=== PATIENT | female | born 1975 | race Caucasian/White ===

== ENCOUNTER → 2017-11-09 07:44 | Outpatient (CLI) | payer BC, SELFPAY ==
--- NOTE | 2017-11-09 07:50 | US_ITS ---
STUDY: THYROID ULTRASOUND REASON FOR EXAM: Female, 42 years old. Dysphasia. TECHNIQUE: Ultrasound evaluation of the thyroid was performed with real-time and static holliday-scale imaging. COMPARISON: None. FINDINGS: RIGHT LOBE: The right lobe of the thyroid gland measures 4.6 x 1.5 x 1.1 cm. There is a homogeneous echotexture. There are no demonstrated solid, cystic or complex lesions. LEFT LOBE: The left lobe of the thyroid gland measures 4.3 x 1.2 x 1.2 cm. There is a homogeneous echotexture. There are no demonstrated solid, cystic or complex lesions. ISTHMUS: The isthmus measures 1 mm which is normal . The regional lymph nodes are normal. US/Thyroid IMPRESSION: Mildly enlarged thyroid gland right lobe greater than left. No nodules or cysts identified. Electronically Signed: Cody Pereira MD at 3:55 EDT , Service support ,
--- NOTE | 2017-11-09 07:50 | US_ITS ---
STUDY: ULTRASOUND OF THE FEMALE PELVIS - COMPLETE REASON FOR EXAM: Female, 42 years old. Menorrhagia. LMP: 10/29/2017. TECHNIQUE: Transabdominal and transvaginal. TECHNICAL QUALITY: Adequate. COMPARISON: None. FINDINGS: The uterus is anteverted and is in a midline position. The uterus measures 8.8 x 5.3 x 4.5 cm. Normal uterine cervix. The endometrium measures 9 mm in thickness, and is fluid distended. There is no demonstrated endometrial mass. Uterine fibroid, posterior uterine body left parasagittal, measuring 1.5 x 1.3 x 1.1 cm. I.U.D. - The patient does not have an I.U.D. The right ovary is visualized. The right ovary measures 3.5 x 1.9 x 1.7 cm. There is no right ovarian cyst or ovarian mass. There is no visualized right adnexal mass or complex lesion. There is normal arterial and normal venous vascularity. The left ovary is visualized. The left ovary measures 2.8 x 1.6 x 1.3 cm. There is no left ovarian cyst or ovarian mass. There is no visualized left adnexal mass or complex lesion. There is normal arterial and normal venous vascularity. There is no fluid in the cul-de-sac. The pre void volume of the bladder was 322 ml. Polycystic ovary disease: No. US/Pelvic (Non ) IMPRESSION: Fluid within the endometrial canal. 5 cm uterine fibroid. Electronically Signed: Cody Pereira MD at 4:00 EDT , Service support ,
--- NOTE | 2017-11-09 08:11 | US_ITS ---
STUDY: ULTRASOUND OF THE FEMALE PELVIS - COMPLETE REASON FOR EXAM: Female, 42 years old. Menorrhagia. LMP: 10/29/2017. TECHNIQUE: Transabdominal and transvaginal. TECHNICAL QUALITY: Adequate. COMPARISON: None. FINDINGS: The uterus is anteverted and is in a midline position. The uterus measures 8.8 x 5.3 x 4.5 cm. Normal uterine cervix. The endometrium measures 9 mm in thickness, and is fluid distended. There is no demonstrated endometrial mass. Uterine fibroid, posterior uterine body left parasagittal, measuring 1.5 x 1.3 x 1.1 cm. I.U.D. - The patient does not have an I.U.D. The right ovary is visualized. The right ovary measures 3.5 x 1.9 x 1.7 cm. There is no right ovarian cyst or ovarian mass. There is no visualized right adnexal mass or complex lesion. There is normal arterial and normal venous vascularity. The left ovary is visualized. The left ovary measures 2.8 x 1.6 x 1.3 cm. There is no left ovarian cyst or ovarian mass. There is no visualized left adnexal mass or complex lesion. There is normal arterial and normal venous vascularity. There is no fluid in the cul-de-sac. The pre void volume of the bladder was 322 ml. Polycystic ovary disease: No. US/Transvaginal Non- IMPRESSION: Fluid within the endometrial canal. 5 cm uterine fibroid. Electronically Signed: Cody Pereira MD at 4:00 EDT , Service support ,
== END ==
PROVIDERS: Family Provider Internal Medicine; PCP Internal Medicine; Visit Provider Internal Medicine
DX: N92.0 Excessive and frequent menstruation with regular cycle (principal); R13.10 Dysphagia, unspecified
CPT/HCPCS: 76536; 76830; 76856; 93976

== ENCOUNTER → 2017-11-24 07:56 | Outpatient (CLI) | payer BC, SELFPAY ==
--- NOTE | 2017-11-24 07:57 | BI_ITS ---
MAMMOGRAPHY - BILATERAL SCREENING REASON FOR EXAM: Female, 42 years old. Routine annual screening examination. PERTINENT HISTORY: NO FAM HX NO SX TECHNIQUE: Digital bilateral breast rodrigo (3D mammographic acquisition) in the CC and MLO projections. 2-D mediolateral oblique (MLO) and craniocaudad (CC) views of both breasts were obtained. CAD: Full Field Digital Mammography with Computer Added Detection was performed. COMPARISON: Oct 26 2016 9:47am. Oct 24 2015 8:11am FINDINGS: Breast Composition: The breasts are heterogeneously dense, which may obscure small masses. There are no dominant masses or suspicious calcifications. No other significant abnormalities are identified. BI/SCREENING MAMM (CAD), BILAT IMPRESSION: Stable bilateral screening mammogram. Yearly follow-up mammogram recommended. (A) ASSESSMENT CATEGORY: BIRADS Category 2: Benign. A letter regarding these results will be sent to the patient by the facility within 30 days. Approximately 10% of breast cancers are not detected by mammography. A normal mammogram should not delay biopsy of a clinically suspicious abnormality. [id number] Electronically Signed: Clyde Young MD at 15:58 EDT Tel , Service support ,
== END ==
PROVIDERS: Family Provider Internal Medicine; PCP Internal Medicine; Visit Provider Internal Medicine
DX: Z12.31 Encounter for screening mammogram for malignant neoplasm of breast (principal)
CPT/HCPCS: 77063; 77067

== ENCOUNTER 2018-06-01 12:05 | Day surgery (SDC) | payer BC, SELFPAY ==
[2018-06-01] VITALS (7 sets, daily range): BP systolic 95–123; BP diastolic 65–87; PULSE 62–91; RESP 16; TEMP 36.1–37.8; O2SAT 100; BMI 20.3
--- NOTE | 2018-06-01 | EMB_PTH ---
PATIENT: IMANI VEGA [place] [facility] [id number] AGE/SX: 43/F ROOM: RE06/01/[address]: Dr. Tracy Sylvester MD : 1975 BED: DIS: 06/01/2018 SPEC #: [id number] RECD: 06/01/18 15:44 STATUS: GIGI KHOA #: [id number] OSWALDO: 06/01/18 00:[address]: Tracy Sylvester DEPT: SURGICAL PATHOLOGY RECD BY: Flash Barboza ENTERED: 06/02/18 08:37 SP TYPE: ENDOM BX/C TOM DR: Dr. Yanet Mirza, DO Tissues: Endometrium, NOS Procedures: Surgery Specimen Level IV HEADER OPERATION: Hysteroscopy, D & C, Nirmala PRE-OP DIAGNOSIS: Menorrhagia TISSUE SUBMITTED: Endometrial curettings MICROSCOPIC DIAGNOSIS Endometrial curettings: Secretory endometrium. SJ:luis e 06/03/18 MICROSCOPIC DESCRIPTION Slides are reviewed. GROSS DESCRIPTION Received in fixative is one container labeled with the patient's name and designated endometrial curettings. The specimen consists of multiple fragments of hemorrhagic soft tissue mixed with mucoid tissue that in aggregate measure 3 x 2.5 x 0.3 cm. The specimen is totally submitted in one cassette. / SJ:rg 06/02/18 TC:4 CPT: 47865
[2018-06-01 12:30] LABS: Internal QC Validated? YES +Cl - CLEAR BKGD; Pregnancy, Urine Negative Negative
--- NOTE | 2018-06-01 13:48 | PCM.DC.D&C ---
Discharge Diet: No Restrictions Discharge Activity: May not drive while taking narcotic pain medications., May Shower, May Take a Tub Bath Return to work on:: 06/03/18 May resume sexual activity in: No Restrictions - when comfortable Weight Bearing Status: Weight bearing as tolerated Call your doctor if you observe: Fever of 101 or Higher, Inability to have a bowel movement, Using more than one pad per hour, Uncontrolled pain Additional Instructions: You make take three (200 mg each) Ibuprofen or two Aleve every 8 hrs as needed for milder pain. Add Tylenol 500 mg tablets 1-2 every 6 hrs . Take OxyIR for more severe pain. Allergies/Adverse Reactions: Allergies erythromycin base Adverse Reaction (Verified 05/24/18 09:40) Vomiting Medications to take at Discharge Multivitamin with Iron [Children's Vitamins with Iron] 1 each PO DAILY 05/24/18 Omeprazole [Prilosec] 20 mg PO DAILY 05/24/18 Oxycodone [Oxyir] 5 - 10 mg PO Q6H PRN PRN 2 Days #10 tablet 06/01/18 The following prescriptions were given: Oxycodone [Oxyir] 5 - 10 mg PO Q6H PRN PRN 2 Days #10 tablet PRN Reason: Mod-Severe Pain (4-10/10) Primary Care Physician: Yanet Mirza DO [Primary Care Provider] - Test Results: Test results from this visit will be discussed in further detail at your follow-up appointment, if applicable. Please Follow Up With: Tracy Sylvester MD - [phone] When: two weeks for postop check up Proposed Discharge Date: 06/01/18
--- NOTE | 2018-06-01 13:53 | DCINST_ITS ---
Discharge Diet: No Restrictions Discharge Activity: May not drive while taking narcotic pain medications., May Shower, May Take a Tub Bath Return to work on:: 06/03/18 May resume sexual activity in: No Restrictions - when comfortable Weight Bearing Status: Weight bearing as tolerated Call your doctor if you observe: Fever of 101 or Higher, Inability to have a bowel movement, Using more than one pad per hour, Uncontrolled pain Additional Instructions: You make take three (200 mg each) Ibuprofen or two Aleve every 8 hrs as needed for milder pain. Add Tylenol 500 mg tablets 1-2 every 6 hrs . Take OxyIR for more severe pain. Allergies/Adverse Reactions: Allergies erythromycin base Adverse Reaction (Verified 05/24/18 09:40) Vomiting Medications to take at Discharge Multivitamin with Iron [Children's Vitamins with Iron] 1 each PO DAILY 05/24/18 Omeprazole [Prilosec] 20 mg PO DAILY 05/24/18 Oxycodone [Oxyir] 5 - 10 mg PO Q6H PRN PRN 2 Days #10 tablet 06/01/18 The following prescriptions were given: Oxycodone [Oxyir] 5 - 10 mg PO Q6H PRN PRN 2 Days #10 tablet PRN Reason: Mod-Severe Pain (4-10/10) Primary Care Physician: Yanet Mirza DO [Primary Care Provider] - Test Results: Test results from this visit will be discussed in further detail at your follow- up appointment, if applicable. Please Follow Up With: Tracy Sylvester MD - [phone] When: two weeks for postop check up Proposed Discharge Date: 06/01/18
--- NOTE | 2018-06-01 15:00 | PCM.OP.BLANK ---
Problem List (1) Menorrhagia Status: Acute Operative Report Date of Procedure: 06/01/18 PROCEDURE: Hysteroscopy, Dilation and curettage, Nirmala endometrial ablation Preoperative Diagnosis: Excessive bleeding in premenopause, menorrhagia Postop diagnosis: Excessive bleeding in premenopause, menorrhagia Anesthesia: MAC IV sedation, Dr Roach Paracervical block of 10cc 1% lidocaine with 1:100,000 epinephrine Surgeon: Tracy Sylvester MD EBL: Minimal for case Drains: Red Rivera, minimal clear yellow urine Complications: none Fluids: replacement Findings: normal appearing cervix Normal appearing , fluffy endometrium. Tubal ostia visualized bilaterally. Narrative account After the R,B,Alternatives of the procedure were reviewed with the patient and her mother, informed consent was obtained. The patient was taken to the operating room with an IV running and placed in dorsal supine position on the operating table. She was given MAC IV sedation . and repositioned to the dorsal lithotomy position and prepped and draped in the usual sterile fashion. A graves speculum was placed into the vagina and the cervix was brought into view. The cervix was parous appearing. A 10cc paracervical block of 1% lidocaine with 1:100,000 epinephrine was instilled. A single toothed tenaculum was applied to the anterior lip of the cervix. The cervix was then sequentially dilated to allow admission of the hysteroscope into the endometrial cavity. The hysteroscopy was performed with findings noted as above. Photos were taken. Both tubal ostia were noted and WNL, and a fluffy appearing endometrium was seen. A sharp curettage was performed and multiple small pieces of tissue were withdrawn and set aside for later pathology review. Upon completion of the D and C, the Nirmala endometrial ablation device was placed into the uterus to the fundus, the endometrial canal length was 6 cm. The balloon seal at the cervix was inflated and the CO2 test was passed. The Nirmala endometrial ablation cycle was then completed, and the device was withdrawn. Excellent hemostasis was noted. The single toothed tenaculum was removed from the cervix and a RayTec was used to remove any remaining tissue and blood from the upper vagina and cervix. The procedure was terminated. The speculum was removed. The patient was returned to dorsal supine position and awakened from IV sedation, and transferred to the recovery room bed in stable condition after tolerating the procedure well. Sponge, lap, needle and instrument counts were correct x two. Medications given intraoperatively included 10 cc of 1% lidocaine with 1:100,000 epinephrine, and Toradol 30 mg IV x one. For a complete listing of the medications given intraoperatively, please see the anesthesia record.
== END 2018-06-01 16:10 | disposition home or self-care (01) ==
LOC: SDC 12:09 → AC 06-02 09:24
PROVIDERS: Anesthesiology; Family Provider Internal Medicine; PCP Internal Medicine; Referring Provider Obstetrics & Gynecology; Visit Provider Obstetrics & Gynecology
PROC: 0U5B8ZZ Destruction of Endometrium, Via Natural or Artificial Opening Endoscopic (ICD-10-PCS; CPT 58558; principal; 2018-06-01 13:35)
DX: N92.4 Excessive bleeding in the premenopausal period (principal); D64.9 Anemia, unspecified; K21.9 Gastro-esophageal reflux disease without esophagitis; Z79.899 Other long term (current) drug therapy; Z87.891 Personal history of nicotine dependence
CPT/HCPCS: 58563; 81025; 88305; J7120

== ENCOUNTER → 2018-06-03 09:16 | Outpatient (CLI) | payer BC, SELFPAY ==
--- NOTE | 2018-06-03 09:20 | CT_ITS ---
STUDY: CT BRAIN WITHOUT CONTRAST REASON FOR EXAM: Female, 43 years old. Paresthesia of the right arm and right lower extremity. RADIATION DOSAGE (If Supplied By Facility): CTDIvol = ( 44.99 ) mGy, DLP = ( 745.49 ) mGycm TECHNIQUE: Transaxial CT imaging of the brain was performed without administration of intravenous contrast material. Individualized dose optimization techniques were used for this CT. COMPARISON: None. FINDINGS: Normal soft tissue structures. Normal calvarium. Normal size ventricles and extra-axial spaces for the patient's age. Normal white matter tracts of the cerebral hemispheres. Normal basal ganglia and thalami. Normal brainstem. Normal cerebellum. There is no intracranial hemorrhage. There are no findings of an acute ischemic infarction. Normal visualized paranasal sinuses. CT/Brain/Head without Contrast IMPRESSION: Normal unenhanced CT scan of the brain. Electronically Signed: Wilbur King MD at 9:52 EST Tel [phone], Service support ,
[2018-06-03 10:20] LABS: Absolute Lymphocyte Count 0.99 X10^3/ul (0.83-4.51); Absolute Neutrophil Count 3.5 X10^3/uL (2.0-7.7); Basophil# 0.01 X10^3/uL; Basophil% 0.2 % (0-1); Eosinophils% 1.9 % (0-5); Hematocrit 36.7 % (37-47); Hemoglobin 11.7 g/dl (12.0-15.0); Lymphocyte # 0.99 X10^3/ul (4.0); Lymphocyte % 18.9 % (19-41); Mean Corp Hgb Conc 31.9 g/gl (32-36); Mean Corpuscular Hgb 26.2 pg (27.0-32.0); Mean Corpuscular Volume 82.1 fL (81-99); Mean Platelet Vol. 11.4 fl (6.2-12.0); Monocyte# 0.69 X10^3/uL; Monocyte% 13.1 % (0-10); Neutrophil # 3.46 X10^3/uL (2.7-7.7); Neutrophil % 65.9 % (47-70); Platelet Count 192 K/mm3 (150-450); RBC Distribution Width CV 16.4 % (11.6-14.6); RBC Distribution Width SD 49.8 fl (35.1-43.9); Red Blood Count 4.47 M/mm3 (4.2-5.4); White Blood Count 5.3 K/mm3 (4.4-11.0)
[2018-06-03 10:29] LABS: POSITIVE COUNT NO; POSITIVE DIFFERENTIAL NO; POSITIVE MORPHOLOGY NO
[2018-06-03 10:59] LABS: Vitamin B12 623 pg/mL (211-911)
[2018-06-03 11:00] LABS: ALB/GLOB Ratio 1.1 RATIO (0.9-2.4); AST(SGOT) 19 U/L (15-37); Alanine Aminotransfer ALT/SGPT 16 U/L (13-56); Albumin, Serum 3.8 g/dL (3.2-5.0); Alkaline Phosphatase 47 U/L (45-117); Anion Gap 6 (5-15); BUN 11 mg/dL (7-18); BUN/Creat Ratio 13.3 RATIO (10-20); Calcium,Total 8.8 mg/dL (8.5-10.1); Chloride 106 mmol/L (98-107); Creatinine, Serum 0.83 mg/dL (0.55-1.02); EST Glomerular Filtration Rate 79 mL/min (>60); Est Glom Filt Rate - Afr Amer 96 mL/min (>60); Globulin 3.4 g/dL (2.2-4.2); Glucose 66 mg/dL (74-106); Potassium 4.3 mmol/L (3.5-5.1); Protein, Total 7.2 g/dL (6.4-8.2); Sodium Level 139 mmol/L (136-145); Thyroid Stim Hormone (TSH) 0.99 uIU/mL (0.358-3.74)
== END ==
PROVIDERS: Family Provider Internal Medicine; PCP Internal Medicine; Referring Provider Internal Medicine; Visit Provider Internal Medicine
DX: R20.2 Paresthesia of skin (principal)
CPT/HCPCS: 70450; 80053; 82607; 84443; 85025

== ENCOUNTER → 2018-06-24 15:05 | Outpatient (CLI) | payer BC, SELFPAY ==
--- NOTE | 2018-06-24 15:08 | ECHOD_ITS ---
Reason For Study: TIA Procedure This was a 2D Doppler, Color Flow transthoracic echocardiogram. The study was technically difficult. Exam performed in department. Left Ventricle Normal LV size. Apical false tendon noted. Left ventricular systolic function is normal. The estimated ejection fraction is 60 %. Transmitral doppler flow suggestive of impaired relaxation of left ventricle. No regional wall motion abnormalities noted. Right Ventricle Normal RV size. Normal systolic function. Atria Normal left atrium. Normal right atrium. No doppler evidence for ASD. Bubble contrast study negative for right to left interatrial shunt. Mitral Valve There is no mitral annular calcification. Normal mitral valve. Trivial mitral valve insufficiency. Tricuspid Valve Normal tricuspid valve. Trivial tricuspid valve insufficiency. Right ventricular systolic pressure estimated to be 27 mmHg. Aortic Valve Trisinus/trileaflet aortic valve. Normal aortic valve. Pulmonic Valve The pulmonic valve is not well visualized. Great Vessels Normal sized aortic root. Pericardium/Pleural No pericardial effusion. Medication 22 gauge I.V. with prn adaptor inserted into right arm. Performed a rapid injection of agitated mix of 9 cc saline and 1cc air to assess for atrial septal defect. MMode/2D Measurements & Calculations LVIDd: 3.9 cm IVSd: 0.66 cm Ao root diam: 2.8 cm LVIDs: 2.5 cm LVPWd: 0.72 cm RVDd: 2.9 cm FS: 34.2 % LAV(MOD-bp): 22.9 ml LA A4 area: 10.3 cm2 LA dimension(2D): 2.5 cm LAV(MOD-bp) Indexed: 15.8 ml/m2 LAV(MOD-sp2): 25.1 ml LAV(MOD-sp4): 19.3 ml RA A4 area: 9.5 cm2 Time Measurements MV dec time: 0.30 sec Doppler Measurements & Calculations MV E max angel: 86.0 cm/sec Lat Peak E' Angel: 15.0 cm/sec Med Peak E' Angel: 12.0 cm/sec MV A max angel: 99.9 cm/sec E/E' lat: 5.7 E/E' med: 7.1 MV E/A: 0.86 Ao V2 max: 123.9 cm/sec LV V1 max: 118.2 cm/sec PA V2 max: 92.0 cm/sec Ao max P.1 mmHg LV V1 max P.6 mmHg TR max angel: 242.2 cm/sec TR max P.8 mmHg Interpretation Summary The study was technically difficult. Left ventricular systolic function is normal. The estimated ejection fraction is 60 %. Apical false tendon noted. Trivial mitral valve insufficiency. Trivial tricuspid valve insufficiency. Right ventricular systolic pressure estimated to be 27 mmHg. Transmitral doppler flow suggestive of impaired relaxation of left ventricle Bubble contrast study negative for right to left interatrial shunt. Ordering Physician: Yanet Mirza Referring Physician: Yanet Mirza Performed By: Chana Phoenix, CARLOS, RVT
--- OUTSIDE RECORDS SUMMARY | 2018-08-19 14:22 | XMS RPT_ITS | Continuity of Care Document ---
:1975 Author Organization [facility] Address [address] [facility] [address] [address] Phone Care Team Providers Name Role Phone Yanet Mirza DO Unavailable Elva Lacey Unavailable Unavailable Una Herron Unavailable Unavailable Unavailable Unavailable Problems Name Dates Details Abdominal pain, acute, right upper quadrant (R10.11, 789.01) Status: Active Abnormal liver function (K76.89, 573.9) Status: Active Abnormal lung function test (R94.2, 794.2) Status: Active Abnormal mammogram (R92.8, 793.80) Comments: us scheduled Status: Active Anemia (D64.9, 285.9) Status: Active BMI between 19-24,adult (V85.1) Status: Active Cardiac dysrhythmia (I49.9, 427.9) Status: Active CHEST PAIN (R07.9, 786.59) Status: Active Chronic sinusitis (J32.9, 473.9) Status: Active Contact dermatitis due to plants, except food, unspecified contact dermatitis type (L25.5, 692.6) Status: Active Deliveries (Parity) Comments: 2. Status: Active Dysphagia (R13.10, 787.20) Comments: better Status: Active Elevated blood-pressure reading without diagnosis of hypertension (R03.0, 796.2) Comments: watch salt and caffeine and diet and ex Status: Active Encounter for screening mammogram for breast cancer (Renamed from Encounter for screening mammogram for malignant neoplasm of breast) (Z12.31, V76.12) Status: Active Encounter for screening mammogram for breast cancer (Renamed from Encounter for screening mammogram for malignant neoplasm of breast) (Z12.31, V76.12) Status: Active Encounter for screening mammogram for breast cancer (Renamed from Encounter for screening mammogram for malignant neoplasm of breast) (Z12.31, V76.12) Status: Active family hx of thyroid diseae Status: Active Gastroesophageal reflux disease without esophagitis (K21.9, 530.81) Comments: doing better after dilation Status: Active Lymphadenopathy (R59.1, 785.6) Status: Active [facility] EXAM Status: Active [facility] Physical Status: Active Menorrhagia (N92.0, 626.2) Comments: seeing Benekos in next few weeks Status: Active Need for prophylactic vaccination and inoculation against influenza (Renamed from Need for immunization against influenza) (Z23, V04.81) Status: Active Non-smoker (Z78.9, V49.89) Status: Active Other and unspecified hyperlipidemia (E78.5, 272.4) Status: Active Palpitations (R00.2, 785.1) Comments: chronic stable-continue present regimen Status: Active Paresthesia (R20.2, 782.0) Status: Active Pregnancies () Comments: 2. Status: Active Rash (R21, 782.1) Status: Active Screening for breast cancer (Z12.39, V76.10) Status: Active Sinusitis, acute (J01.90, 461.9) Status: Active TIA (transient ischemic attack) (G45.9, 435.9) Status: Active Urinary frequency (Renamed from Increased frequency of urination) (R35.0, 788.41) Status: Active Medications Name Dates Details MULTIVITAMIN (PO Tab) Active 1 tab qd Omeprazole 20 MG Oral Tablet Delayed Release 1 (one) Tablet bid for 0 days Quantity: 60 {Tablet} Refills: 6 Ordered:04-May-2018 Fast DOAngela AFast DO, Yanet A Start : 04-May-2018 Active Comments:please dispense dissolveable tablets AUGMENTIN, 875-125MG (Oral Tablet) 1 Tablet bid for 0 days Quantity: 20 {Tablet} Refills: 0 Ordered:07-Nov-2012 Gilma Laceysea Start : 11-Sep-2011 End : 07-Nov-2012 Inactive Hyoscyamine Sulfate 0.125 MG Sublingual Tablet Sublingual 1 (one) Tablet before lunch and before dinner for 0 days Quantity: 60 {Tablet} Refills: 1 Ordered:01-Nov-2017 Elva Lacey Start : 22-Feb-2017 End : 01-Nov-2017 Inactive NASONEX, 50MCG/ACT (Nasal Suspension) 2 (two) Suspension each nostril daily for 0 days Quantity: 1 {Suspension} Refills: 0 Ordered:07-Nov-2012 Cristophercristinapeggy Elva Start : 11-Sep-2011 End : 07-Nov-2012 Inactive NexIUM 24HR Clear Minis 20 MG Oral Capsule Delayed Release 1 (one) Capsule q am for 30 days Quantity: 30 {Capsule} Refills: 0 Ordered:01-Nov-2017 Gilma Laceysea Start : 22-Feb-2017 End : 01-Nov-2017 Inactive PredniSONE 10 MG Oral Tablet 2 (two) Tablet bid for 2days then 1bid for 2days then 1qd for 4days for 8 days Refills: 0 Ordered:14-Apr-2018 Karen Montes DO Start : 14-Apr-2018 End : 22-Apr-2018 Inactive Comments:take with food Amoxicillin uad End : 19-Aug-2016 Discontinued Comments:started on ...10 day supply ASPIRIN LOW DOSE, 81MG (Oral Tablet) 1 tab qd (81 MG) End : 16-Oct-2014 Discontinued Dexilant 60 MG Oral Capsule Delayed Release 1 (one) Capsule DR qd for 30 days Quantity: 30 {Capsule} Refills: 3 Ordered:22-Feb-2017 Una Herron Start : 15-Sep-2016 End : 22-Feb-2017 Discontinued Comments:she has tried prilosec nexium pantoprazole, prevacid and no benefit Qvar 80 MCG/ACT Inhalation Aerosol Solution 2 (two) Aerosol Soln puffs for 0 days Quantity: 1 {Inhaler} Refills: 0 Ordered:22-Feb-2017 Fast DO, Yanet AFast DO, Yanet A Start : 22-Feb-2017 End : 22-Feb-2017 Discontinued Comments:rinse after use Allergies and Adverse Reactions Name Dates Details Erythromycins (Allergy) Reaction: Nausea Status: Active Past Medical History Name Dates Details Need for prophylactic vaccination and inoculation against influenza (Z23, V04.81) Status: Inactive as of 12-Jun-2011 Procedures Procedure Dates Details Mammogram, Screening Completed Sep-2014 Comments: Dr. Yoo Tonsillectomy Completed Comments: childhood Date Value Details 03-Jun-2018 Brain/Head without Contrast Result: Comments: See Note; NOTES: [facility] Imaging Services [address] [place] [address] Brain/Head without Contrast MR#: [id number] Acct: [id number] Name: IMANI VEGA Vito ep #: [id number] : 1975 F 43 From: Wilbur King MD PCP: Yanet Mirza DO Status: REG CLI Study: Brain/Head without Contrast Date of Exam: 06/03/18 Exam# [id number] Ordering Dr: Yanet Mirza DO STUDY: CT BRAIN WITHOUT CONTRAST REASON FOR EXAM: Female, 43 years old. Paresthesia of the right arm and right lower extremity. RADIATION DOSAGE (If Supplied By Facility): CTDIvol = ( 44.99 ) mGy, D LP = ( 745.49 ) mGycm TECHNIQUE: Transaxial CT imaging of the brain was performed without administration of intravenous contrast material. Individualized dose optimization techniques were used for thi s CT. COMPARISON: None. FINDINGS: Normal soft tissue structures. Normal calvarium. Normal size ventricles and extra- axial spaces for the patient's age. Normal whit e matter tracts of the cerebral hemispheres. Normal basal ganglia and thalami. Normal brainstem. Normal cerebellum. There is no intracranial hemorrhage. There are no findings of an acute ischemic infar ction. Normal visualized paranasal sinuses. CT/Brain/Head without Contrast IMPRESSION: Normal unenhanced CT scan of the brain. Electronically S igned: Wilbur King MD at 9:52 EST Tel [phone], Service support , CC: Yanet Mirza DO Upper Doubler: Signed 01-Jun-2018 Operative Report Result: Comments: See Note; NOTES: [facility] Medical Records Department [address] [place] [address] Operative Report 06/01/18 1500 MR#: [id number] Acct: [id number] Name: JULIAN VEGA Rep #: [id number] : 1975 43 From: Tracy Yoo MD PCP: Yanet Mirza DO Status: REG [facility] Location: [place] [address] Problem List (1) Menorrhagia Status: Acute Operative Report Date of Proc edure: 06/01/18 PROCEDURE: Hysteroscopy, Dilation and curettage, Nirmala endometrial ablation Preoperative Diagnosis: Excessive bleeding in premenopause, menorrhagia Postop diagnosis: Excessive blee ding in premenopause, menorrhagia Anesthesia: MAC IV sedation, Dr Roach Paracervical block of 10cc 1% lidocaine with 1:100,000 epinephrine Surgeon: Tracy Yoo MD EBL: Minimal for case Drains : Red Rivera, minimal clear yellow urine Complications: none Fluids: replacement Findings: normal appearing cervix Normal appearing , fluffy endometrium. Tubal ostia visualized bilaterally. Narrat tawanda account After the R,B,Alternatives of the procedure were reviewed with the patient and her mother, informed consent was obtained. The patient was taken to the operating room with an IV running and p laced in dorsal supine position on the operating table. She was given MAC IV sedation . and repositioned to the dorsal lithotomy position and prepped and draped in the usual sterile fashion. A graves sp eculum was placed into the vagina and the cervix was brought into view. The cervix was parous appearing. A 10cc paracervical block of 1% lidocaine with 1:100,000 epinephrine was instilled. A single toot hed tenaculum was applied to the anterior lip of the cervix. The cervix was then sequentially dilated to allow admission of the hysteroscope into the endometrial cavity. The hysteroscopy was performed w ith findings noted as above. Photos were taken. Both tubal ostia were noted and WNL, and a fluffy appearing endometrium was seen. A sharp curettage was performed and multiple small pieces of tissue were withdrawn and set aside for later pathology review. Upon completion of the D and C, the Nirmala endometrial ablation device was placed into the uterus to the fundus, the endometrial canal length was 6 cm. The balloon seal at the cervix was inflated and the CO2 test was passed. The Nirmala endometrial ablation cycle was then completed, and the device was withdrawn. Excellent hemostasis was noted. The single toothed tenaculum was removed from the cervix and a RayTec was used to remove any remaining tissue and blood from the upper vagina and cervix. The procedure was terminated. The speculum was stephanie haylie. The patient was returned to dorsal supine position and awakened from IV sedation, and transferred to the recovery room bed in stable condition after tolerating the procedure well. Sponge, lap, nee dle and instrument counts were correct x two. Medications given intraoperatively included 10 cc of 1% lidocaine with 1:100,000 epinephrine, and Toradol 30 mg IV x one. For a complete listing of the medi cations given intraoperatively, please see the anesthesia record. 06/01/18 1505 <Electronically signed by Tracy Yoo MD> Date Tracy Yoo MD CC: Yanet Mirza DO; Tracy Yoo MD Signed 01-Jun-2018 Discharge Instruction Result: Comments: See Note; NOTES: [facility] Medical Records Department [address] [place] [address] Instructions for Home/Discharge Instructions 06/01/18 1348 MR#: [id number] Acct: [id number] Name: IMANI VEGA Rep #: [id number] : 1975 43 From: Tracy Yoo MD PCP: Yanet Mirza DO Status: REG [facility] Discharge Diet: No Restrictions Discharge Activity: May not drive wh ile taking narcotic pain medications., May Shower, May Take a Tub Bath Return to work on:: 06/03/18 May resume sexual activity in: No Restrictions - when comfortable Weight Bearing Status: Weight bearin g as tolerated Call your doctor if you observe: Fever of 101 or Higher, Inability to have a bowel movement, Using more than one pad per hour, Uncontrolled pain Additional Instructions: You make take th ree (200 mg each) Ibuprofen or two Aleve every 8 hrs as needed for milder pain. Add Tylenol 500 mg tablets 1-2 every 6 hrs . Take OxyIR for more severe pain. Allergies/Adverse Reactions: Allergies eryt hromycin base Adverse Reaction (Verified 05/24/18 09:40) Vomiting Medications to take at Discharge Multivitamin with Iron [Children's Vitamins with Iron] 1 each PO DAILY 05/24/18 Omeprazole [Prilosec ] 20 mg PO DAILY 05/24/18 Oxycodone [Oxyir] 5 - 10 mg PO Q6H PRN PRN 2 Days #10 tablet 06/01/18 The following prescriptions were given: Oxycodone [Oxyir] 5 - 10 mg PO Q6H PRN PRN 2 Days #10 tablet PRN Reason: Mod-Severe Pain (4-05/04) Primary Care Physician: Yanet Mirza DO [Primary Care Provider] - Test Results: Test results from this visit will be discussed in further detail at your follow-up appoi ntment, if applicable. Please Follow Up With: Tracy Yoo MD - [phone] When: two weeks for postop check up Proposed Discharge Date: 06/01/18 06/01/18 1473 <Electronically signed by Tracy Yoo MD> Date Tracy Yoo MD CC: Yanet Mirza DO 24-Nov-2017 SCREENING MAMM (CAD), BILAT Result: Comments: See Note; NOTES: [facility] Imaging Services [address] [place] [address] SCREENING MAMM (CAD), BILAT MR#: [id number] Acct: [id number] Name: IMANI VEGA #: [id number] : 1975 F 42 From: Clyde Young MD PCP: Yanet Mirza DO Status: [facility] CLI Study: SCREENING MAMM (CAD), BILAT Date of Exam: 11/24/17 Exam# [id number] Ordering Dr: Yanet Mirza DO MA MMOGRAPHY - BILATERAL SCREENING REASON FOR EXAM: Female, 42 years old. Routine annual screening examination. PERTINENT HISTORY: NO FAM HX NO SX TECHNIQUE: Digital bilateral breast rodrigo (3D mammograph ic acquisition) in the CC and MLO projections. 2-D mediolateral oblique (MLO) and craniocaudad (CC) views of both breasts were obtained. CAD: Full Field Digital Mammography with Computer Added Detection was performed. COMPARISON: Oct 26 2016 9:47am. Oct 24 2015 8:11am FINDINGS: Breast Composition: The breasts are heterogeneously dense, which may obscure small mass es. There are no dominant masses or suspicious calcifications. No other significant abnormalities are identified. BI/SCREENING MAMM (CAD), BILA T IMPRESSION: Stable bilateral screening mammogram. Yearly follow-up mammogram recommended. (A) ASSESSMENT CATEGORY: BIRADS Category 2: Benign. A letter regarding t hese results will be sent to the patient by the facility within 30 days. Approximately 10% of breast cancers are not detected by mammography. A normal mammogram should not delay biopsy of a clinically suspicious abnormality. [id number] Electronically Signed: Clyde Young MD at 15:58 EDT Tel , Service support , CC: Yanet Mirza DO Upper Doubler: Signed 09-Nov-2017 Transvaginal Non- Result: Comments: See Note; NOTES: [facility] Imaging Services [address] [place] [address] Transvaginal Non- MR#: [id number] Acct: [id number] Name: IMANI VEGA Rep #: [id number] : 1975 F 42 From: Cody Pereira PCP: Yanet Mirza DO Status: REG CLI Study: Transvaginal Non- Date of Exam: 11/09/17 Exam# [id number] Ordering Dr: Yanet Mirza DO ADDENDUM by Cody Pereira on 11/10/17 at 2206 US/Transvaginal Non- 11/10/172212 Date cc: Yanet Mirza DO * Signed ADDENDUM by Cody Pereira on 11/10/17 at 2206 === ADDENDUM Impression should read: Fluid within the endometrial canal. 1.5 cm uterine fibroid. Electro nically Signed: Cody Pereira MD at 22:06 EDT , Service support , 11/10/172205 Date cc: Yanet Mirza DO * Signed STUDY: ULTR ASOUND OF THE FEMALE PELVIS - COMPLETE REASON FOR EXAM: Female, 42 years old. Menorrhagia. LMP: 10/29/2017. TECHNIQUE: Transabdominal and transvaginal. TECHNICAL QUALITY: Adequate. COMPARISON: None. _ FINDINGS: The uterus is anteverted and is in a midline position. The uterus measures 8.8 x 5.3 x 4.5 cm. Normal uterine cervix. The endometrium measures 9 mm in thick ness, and is fluid distended. There is no demonstrated endometrial mass. Uterine fibroid, posterior uterine body left parasagittal, measuring 1.5 x 1.3 x 1.1 cm. I.U.D. - The patient does not have an I. U.D. The right ovary is visualized. The right ovary measures 3.5 x 1.9 x 1.7 cm. There is no right ovarian cyst or ovarian mass. There is no visualized right adnexal mass or complex lesion. There is no rmal arterial and normal venous vascularity. The left ovary is visualized. The left ovary measures 2.8 x 1.6 x 1.3 cm. There is no left ovarian cyst or ovarian mass. There is no visualized left adnexal mass or complex lesion. There is normal arterial and normal venous vascularity. There is no fluid in the cul-de-sac. The pre void volume of the bladder was 322 ml. Polycystic ovary disease: No. ___ US/Transvaginal Non- IMPRESSION: Fluid within the endometrial canal. 5 cm uterine fibroid. Electronically Signed: Cody Pereira MD 11/10 at 4:00 EDT , Service support , CC: Yanet Mirza DO Upper Doubler: Signed 09-Nov-2017 Transvaginal Non- Result: Comments: See Note; NOTES: [facility] Imaging Services [address] [place] [address] Transvaginal Non- MR#: [id number] Acct: [id number] Name: IMANI VEGA Rep #: [id number] : 1975 F 42 From: Cody Pereira PCP: Yanet Mirza DO Status: REG CLI Study: Transvaginal Non- Date of Exam: 11/09/17 Exam# [id number] Ordering Dr: Yanet Mirza DO STUDY: U LTRASOUND OF THE FEMALE PELVIS - COMPLETE REASON FOR EXAM: Female, 42 years old. Menorrhagia. LMP: 10/29/2017. TECHNIQUE: Transabdominal and transvaginal. TECHNICAL QUALITY: Adequate. COMPARISON: None . FINDINGS: The uterus is anteverted and is in a midline position. The uterus measures 8.8 x 5.3 x 4.5 cm. Normal uterine cervix. The endometrium measures 9 mm in th ickness, and is fluid distended. There is no demonstrated endometrial mass. Uterine fibroid, posterior uterine body left parasagittal, measuring 1.5 x 1.3 x 1.1 cm. I.U.D. - The patient does not have an I.U.D. The right ovary is visualized. The right ovary measures 3.5 x 1.9 x 1.7 cm. There is no right ovarian cyst or ovarian mass. There is no visualized right adnexal mass or complex lesion. There is normal arterial and normal venous vascularity. The left ovary is visualized. The left ovary measures 2.8 x 1.6 x 1.3 cm. There is no left ovarian cyst or ovarian mass. There is no visualized left adne xal mass or complex lesion. There is normal arterial and normal venous vascularity. There is no fluid in the cul-de-sac. The pre void volume of the bladder was 322 ml. Polycystic ovary disease: No. US/Transvaginal Non- IMPRESSION: Fluid within the endometrial canal. 5 cm uterine fibroid. Electronically Signed: Cody Pereira MD 10/11/17 at 4:00 EDT , Service support , CC: Yanet Mirza DO Upper Doubler: Signed 09-Nov-2017 Pelvic (Non ) Result: Comments: See Note; NOTES: [facility] Imaging Services [address] [place] [address] Pelvic (Non ) MR#: [id number] Acct: [id number] Name: IMANI VEGA Rep #: [id number] : 1975 F 42 From: Cody Pereira PCP: Yanet Mirza DO Status: REG CLI Study: Pelvic (Non ) Date of Exam: 11/09/17 Exam# [id number] Ordering Dr: Yanet Mirza DO ADDENDUM by Rodri Pereira on 11/10/17 at 2206 US/Pelvic (Non ) 11/10/172212 Date cc: Yanet Mirza DO * Signed ADDENDUM by Cody Pereira on 11/10/17 at 2206 ADDENDUM Impression should read: Fluid within the endometrial canal. 1.5 cm uterine fibroid. Electronically Sign ed: Cody Pereira MD at 22:06 EDT , Service support , 11/10/172205 Date cc: Yanet Mirza DO * Signed STUDY: ULTRASOUND OF TH E FEMALE PELVIS - COMPLETE REASON FOR EXAM: Female, 42 years old. Menorrhagia. LMP: 10/29/2017. TECHNIQUE: Transabdominal and transvaginal. TECHNICAL QUALITY: Adequate. COMPARISON: None. FINDINGS: The uterus is anteverted and is in a midline position. The uterus measures 8.8 x 5.3 x 4.5 cm. Normal uterine cervix. The endometrium measures 9 mm in thickness, and is fluid distended. There is no demonstrated endometrial mass. Uterine fibroid, posterior uterine body left parasagittal, measuring 1.5 x 1.3 x 1.1 cm. I.U.D. - The patient does not have an I.U.D. The ri ght ovary is visualized. The right ovary measures 3.5 x 1.9 x 1.7 cm. There is no right ovarian cyst or ovarian mass. There is no visualized right adnexal mass or complex lesion. There is normal arteria l and normal venous vascularity. The left ovary is visualized. The left ovary measures 2.8 x 1.6 x 1.3 cm. There is no left ovarian cyst or ovarian mass. There is no visualized left adnexal mass or com plex lesion. There is normal arterial and normal venous vascularity. There is no fluid in the cul-de-sac. The pre void volume of the bladder was 322 ml. Polycystic ovary disease: No. US/Pelvic (Non ) IMPRESSION: Fluid within the endometrial canal. 5 cm uterine fibroid. Electronically Signed: Cody Pereira MD at 4:00 ED T , Service support , CC: Yanet Mirza DO Upper Doubler: Signed 09-Nov-2017 Pelvic (Non ) Result: Comments: See Note; NOTES: [facility] Imaging Services [address] [place] [address] Pelvic (Non ) MR#: [id number] Acct: [id number] Name: IMANI VEGA Rep #: [id number] : 1975 F 42 From: Cody Pereira PCP: Yanet Mirza DO Status: REG CLI Study: Pelvic (Non ) Date of Exam: 11/09/17 Exam# [id number] Ordering Dr: Yanet Mirza DO STUDY: ULTRASOUN D OF THE FEMALE PELVIS - COMPLETE REASON FOR EXAM: Female, 42 years old. Menorrhagia. LMP: 10/29/2017. TECHNIQUE: Transabdominal and transvaginal. TECHNICAL QUALITY: Adequate. COMPARISON: None. FINDINGS: The uterus is anteverted and is in a midline position. The uterus measures 8.8 x 5.3 x 4.5 cm. Normal uterine cervix. The endometrium measures 9 mm in thickness, and is fluid distended. There is no demonstrated endometrial mass. Uterine fibroid, posterior uterine body left parasagittal, measuring 1.5 x 1.3 x 1.1 cm. I.U.D. - The patient does not have an I.U.D. The right ovary is visualized. The right ovary measures 3.5 x 1.9 x 1.7 cm. There is no right ovarian cyst or ovarian mass. There is no visualized right adnexal mass or complex lesion. There is normal arterial and normal venous vascularity. The left ovary is visualized. The left ovary measures 2.8 x 1.6 x 1.3 cm. There is no left ovarian cyst or ovarian mass. There is no visualized left adnexal mass or complex lesion. There is normal arterial and normal venous vascularity. There is no fluid in the cul-de-sac. The pre void volume of the bladder was 322 ml. Polycystic ovary disease: No. US/Pelvic (Non ) IMPRESSION: Fluid within the endometrial canal. 5 cm uterine fibroid. Electronically Signed: Cody Pereira MD at 4:00 EDT , Service support , CC: Yanet Mirza DO Upper Doubler: Signed 09-Nov-2017 Thyroid Result: Comments: See Note; NOTES: [facility] Imaging Services [address] [place] [address] Thyroid MR#: [id number] Acct: [id number] Name: GARYIMANI L Rep #: [id number] : 1975 F 42 From: Cody Pereira PCP: Yanet Mirza DO Status: REG CLI Study: Thyroid Date of Exam: 11/09/17 Exam# [id number] Ordering Dr: Yanet Mirza DO STUDY: THYROID ULTRASOUND REASON FOR EXAM: Female, 42 years old. Dysphasia. TECHNIQUE: Ultrasound evaluation of the thyroid was performed with real-time and static holliday-scale imaging. COMPARISON: None. FIND INGS: RIGHT LOBE: The right lobe of the thyroid gland measures 4.6 x 1.5 x 1.1 cm. There is a homogeneous echotexture. There are no demonstrated solid, cystic or complex lesions. LEFT LOBE: The left l obe of the thyroid gland measures 4.3 x 1.2 x 1.2 cm. There is a homogeneous echotexture. There are no demonstrated solid, cystic or complex lesions. ISTHMUS: The isthmus measures 1 mm which is normal . The regional lymph nodes are normal. US/Thyroid IMPRESSION: Mildly enlarged thyroid gland right lobe greater than left. No nodules or cysts i dentified. Electronically Signed: Cody Pereira MD at 3:55 EDT , Service support , CC: Yanet Mirza DO Upper Doubler: Signed 17-May-2017 Esophagus Only Result: Comments: See Note; NOTES: [facility] Imaging Services [address] [place] [address] Esophagus Only MR#: [id number] Acct: [id number] Name: IMANI VEGA Rep #: [id number] : 1975 F 42 From: Wilbur King MD PCP: Yanet Mirza DO Status: REG CLI Study: Esophagus Only Date of Exam: 05/17/17 Exam# [id number] Ordering Dr: Delbert Spaulding MD STUDY: X-RAY - ESOPHA DAMIR (BARIUM SWALLOW) WITH FLUOROSCOPY REASON FOR EXAM: Female, 42 years old. Chronic gastroesophageal reflux. Chest pressure. TECHNIQUE: 19 view(s) of the esophagus were obtained following swallowing of barium. FLUOROSCOPY TIME (if supplied): (0:24) minutes/seconds COMPARISON: None. FINDINGS: There is no demonstrated esophageal foreign body. There is no demonst rated stricture or mucosal abnormality. Normal gastroesophageal junction, without a demonstrated hiatal hernia. The patient ingested a 12 mm tablet of barium without any difficulty. Normal visualized a ortic arch and descending thoracic aorta. Normal visualized pulmonary parenchyma. Normal visualized osseous structures of the thorax. RAD/Esopha damir Only IMPRESSION: Normal plain film x-ray examination (barium swallow) of the esophagus. Electronically Signed: Wilbur King MD at 10:13 EDT Tel [phone], Service support [phone], CC: Yanet Mirza DO; Delbert Spaulding Upper Doubler: Signed 17-May-2017 Esophagus Only Result: Comments: See Note; NOTES: [facility] Imaging Services [address] [place] [address] Esophagus Only MR#: [id number] Acct: [id number] Name: VEGAIMANI Rep #: [id number] : 1975 F 42 From: Wilbur King MD PCP: Yanet Mirza DO Status: [facility] Study: Esophagus Only Date of Exam: 05/17/17 Exam# [id number] Ordering Dr: Delbert Spaulding MD ADDENDUM by Wilbur King MD on 05/21/17 at 1341 RAD/Esophagus Only 05/21/17 1348 Date cc: Yanet Spaulding * Signed ADDENDUM by Wilbur King MD on 05/21/17 at 1 341 ADDENDUM This is an addendum report. The patient was unable to swallow the 12 mm tablet of caty um. Electronically Signed: Wilbur King MD at 13:41 EDT Tel [phone], Service support , 05/21/17 1341 Date cc: Yanet Mirza DO; Tae Spaulding * Signed STUDY: X-RAY - ESOPHAGUS (BARIUM SWALLOW) WITH FLUOROSCOPY REASON FOR EXAM: Female, 42 years old. Chronic gastroesophageal reflux. Chest pressure. TECHNIQUE: 19 view(s) of the esoph vandana were obtained following swallowing of barium. FLUOROSCOPY TIME (if supplied): (0:24) minutes/seconds COMPARISON: None. FINDINGS: There is no demonstrated esop hageal foreign body. There is no demonstrated stricture or mucosal abnormality. Normal gastroesophageal junction, without a demonstrated hiatal hernia. The patient ingested a 12 mm tablet of barium with out any difficulty. Normal visualized aortic arch and descending thoracic aorta. Normal visualized pulmonary parenchyma. Normal visualized osseous structures of the thorax. RAD/Esophagus Only IMPRESSION: Normal plain film x-ray examination (barium swallow) of the esophagus. Electronically Signed: Wilbur King MD at 10:13 EDT Tel [phone], Service support , CC: Yanet Mirza DO; Delbert Spaulding Upper Doubler: Signed 26-Oct-2016 SCREENING MAMM (CAD), BILAT Result: Comments: See Note; NOTES: [facility] Imaging Services [address] [place] [address] Verdana 4d SCREENING MAMM (CAD), BILAT MR#: [id number] Acct: [id number] Name: JULIAN VEGA Rep #: [id number] : 1975 F 41 From: Wilbur King MD PCP: Yanet Mirza DO Status: REG CLI Study: SCREENING MAMM (CAD), BILAT Date of Exam: 10/26/16 Exam# [id number] Ordering Dr: Yanet Mirza DO MAMMOGRAPHY - BILATERAL SCREENING REASON FOR EXAM: Female, 41 years old. Routine annual screening examination. PERTINENT HISTORY: Non- contributory. TECHNIQUE: Digital bilateral breast chad o (3D mammographic acquisition) in the CC and MLO projections. 2-D mediolateral oblique (MLO) and craniocaudad (CC) views of both breasts were obtained. CAD: Full Field Digital Mammography with Computer Added Detection was performed. COMPARISON: Comparison is made with prior study dated October 24, 2015 and October 11, 2014. FINDINGS: Breast Composition: The breasts a re heterogeneously dense, which may obscure small masses. There are no dominant masses or suspicious calcifications. No other significant abnormalities are identified. There has been no significant ch gerri since the prior study. 0011 HPBI/SCREENING MAMM (CAD), BILAT IMPRESSION: Stable bilateral screening mammogram. Yearly follow-up mammogram recomme nded. (A) ASSESSMENT CATEGORY: BIRADS Category 1: Negative. A letter regarding these results will be sent to the patient by the facility within 30 days. Approximat compa 10% of breast cancers are not detected by mammography. A normal mammogram should not delay biopsy of a clinically suspicious abnormality. [id number] Electronically Signed: Wilbur King MD 10/26 at 10:35 EDT Tel [phone], Service support [phone], CC: Yanet Mirza DO Upper Doubler: Signed 26-Oct-2016 SCREENING MAMM (CAD), BILAT Result: Comments: See Note; NOTES: [facility] Imaging Services [address] [place] [address] Verdana 4d SCREENING MAMM (CAD), BILAT MR#: [id number] Acct: [id number] Name: JULIAN VEGA Rep #: [id number] : 1975 F 41 From: Wilbur King MD PCP: Yanet Mirza DO Status: REG CLI Study: SCREENING MAMM (CAD), BILAT Date of Exam: 10/26/16 Exam# [id number] Ordering Dr: Yanet Mirza DO MAMMOGRAPHY - BILATERAL SCREENING REASON FOR EXAM: Female, 41 years old. Routine annual screening examination. PERTINENT HISTORY: Non- contributory. TECHNIQUE: Digital bilateral breast chad o (3D mammographic acquisition) in the CC and MLO projections. 2-D mediolateral oblique (MLO) and craniocaudad (CC) views of both breasts were obtained. CAD: Full Field Digital Mammography with Computer Added Detection was performed. COMPARISON: Comparison is made with prior study dated October 24, 2015 and October 11, 2014. FINDINGS: Breast Composition: The breasts a re heterogeneously dense, which may obscure small masses. There are no dominant masses or suspicious calcifications. No other significant abnormalities are identified. There has been no significant ch gerri since the prior study. 0011 HPBI/SCREENING MAMM (CAD), BILAT IMPRESSION: Stable bilateral screening mammogram. Yearly follow-up mammogram recomme nded. (A) ASSESSMENT CATEGORY: BIRADS Category 1: Negative. A letter regarding these results will be sent to the patient by the facility within 30 days. Approximat compa 10% of breast cancers are not detected by mammography. A normal mammogram should not delay biopsy of a clinically suspicious abnormality. [id number] Electronically Signed: Wilbur King MD 10/26 at 10:35 EDT Tel [phone], Service support [phone], CC: Yanet Mirza DO Upper Doubler: Signed 09-Oct-2016 Pulmonary Function Report Comp Result: Comments: See Note; NOTES: [facility] Pulmonary Services/Neurology [address] [place] [address] Pulmonary Function Test (Comp) MR#: [id number] Acct: [id number] Name: IMANI VEGA Rep #: [id number] : 1975 41 From: Abel Guadarrama DO Referring Dr: Yanet Mirza DO Status: REG CLI Ordering Dr: Yanet Mirza DO Date: 10/07/16 Location: N Sex: F C DATE OF SERVICE: 10/07 INTRODUCTION: The patient is a 41-year-old female currently being seen by Dr. Mirza that presents for pulmonary function testing secondary to a diagnosis of abnormal PFTs. [facility] reports good patient effort and reports no other concerns. Bronchodilators were used during testing. INTERPRETATION: Forced expiration spirometry demonstrates no evidence of a large airways obstr uctive ventilatory defect. There was no significant response to aerosolized bronchodilators. Spirograms are of good quality and plateau normally. The respiratory flow volume loop appears normal. The air way resistance is within normal limits. Body plethysmography was performed and reveals lung volumes to be within normal limits. Diffusing capacity by single breath CO is normal. IMPRESSION: These pulmo nary function studies are essentially within normal limits. Clinical correlation is recommended. There are no previous pulmonary function studies available for comparison. DO Mahendra Coker C: Th halley referring provider T: NTS JOB: [id number] 10/09/16 1537 <Electronically signed by Abel Guadarrama DO> Date Abel Guadarrama DO CC: Yanet Mirza DO; Sanchez D.O. Date Dictated: 10/07/16 1445 Date Transcribed: 10/07/161444 Upper Doubler: Signed 19-Aug-2016 Chest PA and Lateral Result: Comments: See Note; NOTES: [facility] Imaging Services [address] [place] [address] Verdana 4d Chest PA and Lateral MR#: [id number] Acct: [id number] Name: IMANI VEGA Rep #: [id number] : 1975 F 41 From: Lj Haney MD PCP: Yanet Mirza DO Status: REG CLI Study: Chest PA and Lateral Date of Exam: 08/19/16 Exam# [id number] Ordering Dr: Yanet Mirza DO ST UDY: X-RAY CHEST REASON FOR EXAM: Female, 41 years old. Abnormal lung sounds TECHNIQUE: PA and lateral views of the chest. COMPARISON: 11/08/2012 FINDINGS: The robby ngs are clear and somewhat hyperinflated. There is no demonstrated pleural abnormality. Normal size heart. Normal mediastinum and hoang. Normal visualized pulmonary arteries. Normal visualized aortic ar ch and descending thoracic aorta. Normal visualized thoracic spine. Normal visualized ribs, clavicles, and shoulders. There is no demonstrated abnormality of the visualized soft tissue structures of t he upper abdomen. RAD/Chest PA and Lateral IMPRESSION: No acute parenchymal infiltrate or evidence of pneumonitis demonstrated, stable or recurre nt hyperinflation noted which could relate to exacerbation of chronic airway disease/asthmatic disease. Electronically Signed: Herber Haney MD at 7:56 EST Tel , Service sup port [phone], CC: Yanet Mirza DO Upper Doubler: Signed 24-Oct-2015 Bilat Scrn Digital AND CAD Result: Comments: See Note; NOTES: [facility] Imaging Services [address] [place] [address] Verdana 4d Bilat Scrn Digital AND CAD MR#: [id number] Acct: [id number] Name: IMANI VEGA Rep #: [id number] : 1975 F 40 From: Wilbur King MD PCP: Yanet Mirza DO Status: REG CLI Study: Khris Riki Digital AND CAD Date of Exam: 10/24/15 Exam# [id number] Ord ering Dr: Yanet Mirza DO MAMMOGRAPHY - BILATERAL SCREENING REASON FOR EXAM: Female, 40 years old. Routine annual screening examination. PERTINENT HISTORY: Non-contributory. TECHNIQUE: Digital bilateral breast tomosynthesis (3-D mammographic acquisition) in the CC and MLO projections. Synthesized 2-D images (C-View reconstruction from tomosynthesis acquisition) providing bilateral breast CC and MLO views. Mediolateral oblique (MLO) and craniocaudad (CC) views of both breasts were obtained. CAD: Full Field Digital Mammography with Computer Added Detection was performed. COMPARISON: C omparison is made with prior study dated October 11, 2014 and May 23, 2013. FINDINGS: Breast Composition: The breasts are heterogeneously dense, which may obs cure small masses. There are no dominant masses or suspicious calcifications. No other significant abnormalities are identified. There has been no significant change since the prior study. IMPRESSION: Stable bilateral screening mammogram. Yearly follow-up mammogram recommended. (A) ASSESSMENT CATEGORY: BIRADS Catego ry 1: Negative. A letter regarding these results will be sent to the patient by the facility within 30 days. Approximately 10% of breast cancers are not detected by mammography. A normal mammogram s hould not delay biopsy of a clinically suspicious abnormality. [id number] Electronically Signed: Wilbur King MD at 11:19 EDT Tel [phone], Service support [phone], Fax CC: Yanet Mirza DO Upper Doubler: Signed 24-Sep-2015 Liver Result: Comments: See Note; NOTES: [facility] Imaging Services [address] [place] [address] Annie 4d Liver MR#: [id number] Acct: [id number] Name: IMANI VEGA ep #: [id number] : 1975 F 40 From: Wilbur King MD PCP: Yanet Mirza DO Status: REG CLI Study: Liver Date of Exam: 09/24/15 Exam# [id number] Ordering Dr: Yanet Mirza DO STUDY: ABDOMI NAL ULTRASOUND - RIGHT UPPER QUADRANT REASON FOR VISIT: Female, 40 years old. Elevated liver enzymes. TECHNIQUE: Ultrasound evaluation of the right upper quadrant was performed with real-time and s tatic holliday-scale imaging. TECHNICAL QUALITY: Adequate. COMPARISON: Comparison is made with prior examination dated October 19, 2014. FINDINGS: Liver: The live r measures 14.1 cm. There is normal echogenicity of the liver. The bile ducts are within normal limits. There is hepatic color flow. The direction of portal flow is hepatopetal. There is no demonstra jesse mass lesion. Gallbladder: Normal distended gallbladder. The gallbladder wall measures 1.5 mm. There is a negative sonographic Espinosa's sign. There is no pericholecystic fluid. There are no galls tones. Common Bile Duct (C.B.D.): The common bile duct measures 2.7 mm. Pancreas: Normal size of the head, body and tail of the pancreas. There is normal echogenicity of the pancreas. There is no d emonstrated pancreatic mass or cyst. Right Kidney: Normal size of the right kidney. The right kidney measures 10.5 cm x 4.5 cm x 3.6 cm. Normal renal cortex. The right cortex measures 0.9 cm. There is no demonstrated renal mass or cyst. There is no right hydronephrosis. IMPRESSION: Normal right upper quadrant ultrasound examination. Electronically Signed : Wilbur King MD at 10:09 EST Tel [phone], Service support [phone], CC: Yanet Mirza DO Upper Doubler: Signed 18-Sep-2015 ELECTROCARDIOGRAM, COMPLETE (ECG) (64239) Comments: ekg showed normal sinus rhythym, normal axis, no acute st/t wave changes poor r wave unchanged Result: [MEASUREMENTS ANALYSIS] Date of Test: 09/18/2015 10:28:56; Heart Rate: 72; MD Interval: 126; QRS: 82; QT Interval: 372; Corrected QT Interval (QTc): 393; P Wave [place]: 66; QRS Wave [place]: 37; T Wave [place]: 40; Blood Pressure: 100/60 [ECG DIAGNOSTIC STATEMENTS] Date of Test: 09/18/2015 10:28:56; Summary: Sinus Rhythm -Poor R-wave progression -nonspecific - consider old anterior infarct. BORDERLINE 19-Oct-2014 Gallbladder Result: Comments: See Note; NOTES: [facility] Imaging Services [address] [place] [address] Ultrasound Report MR#: [id number] Acct: [id number] Name: IMANI VEGA Rep #: [id number] : 1975 F 39 From: Wilbur King MD PCP: Yanet Mirza DO Status: REG CLI Study: Gallbladder Date of Exam: 10/19/14 Exam# [id number] Ordering Dr: Yanet Mirza DO STUDY: ABDOMI NAL ULTRASOUND - RIGHT UPPER QUADRANT REASON FOR VISIT: Female, 39 years old. 2 month history of right abdominal pain. TECHNIQUE: Ultrasound evaluation of the right upper quadrant was performed wi th real-time and static holliday-scale imaging. TECHNICAL QUALITY: Adequate. COMPARISON: Comparison is made with prior examination dated November 11, 2012. FINDINGS: Liver: The liver measures 13.2 cm. There is normal echogenicity of the liver. The bile ducts are within normal limits. There is hepatic color flow. The direction of portal flow is hepatopetal. Ther e is no demonstrated mass lesion. Gallbladder: Normal distended gallbladder. The gallbladder wall measures 2.6 mm. There is a negative sonographic Espinosa's sign. There is no pericholecystic fluid. There are no gallstones. Common Bile Duct (C.B.D.): The common bile duct measures 3.8 mm. Pancreas: Normal size of the head, body and tail of the pancreas. There is normal echogenicity of the pancr eas. There is no demonstrated pancreatic mass or cyst. Right Kidney: Normal size of the right kidney. The right kidney measures 10.3 cm x 4.7 cm x 5.3 cm. Normal renal cortex. The right cortex measu res 1.6 cm. There is no demonstrated renal mass or cyst. There is no right hydronephrosis. IMPRESSION: Normal right upper quadrant ultrasound examination. Ary ctronically Signed: Wilbur King MD at 11:30 EDT Tel [phone], Service support [phone], CC: Yanet Mirza DO Upper Doubler: Signed 17-Oct-2014 Unilat Lt Diag Digital AND CAD Result: Comments: See Note; NOTES: [facility] Imaging Services [address] [place], [place] [id number] Breast Imaging Report MR#: [id number] Acct: [id number] Name: GARYIMANI Rep #: [id number] : 1975 F 39 From: Wilbur King MD PCP: Yanet Mirza DO Status: REG CLI Study: Unilat Lt Diag Digital AND CAD Date of Exam: 10/17/14 Exam# [id number] Ordering Dr: Vashti Mirza ra, DO MAMMOGRAPHY - UNILATERAL DIAGNOSTIC: LEFT BREAST REASON FOR EXAM: Female, 39 years old. Abnormal screening mammogram. PERTINENT HISTORY: Non- contributory. TECHNIQUE: Digital examination. 90? lateral and compression spot views of the left breast were obtained. CAD: CAD was performed on this study. COMPARISON: Comparison is made with prior study dated October 11, 2014. FINDINGS: Breast Composition: The breasts are heterogeneously dense, which may obscure small masses. There are no dominant masses or suspicious calcifications. No other signi ficant abnormalities are identified. IMPRESSION: Stable unilateral diagnostic mammogram. One year follow-up recommended. (A) ASSESSMENT CATEGORY: BIRADS Category 2: Benign. A letter regarding these results will be sent to the patient by the facility within 30 days. Approximately 10% of breast cancers are not detected b y mammography. A normal mammogram should not delay biopsy of a clinically suspicious abnormality. Electronically Signed: Wilbur King MD at 12:43 EDT Tel [phone], Service sup port [phone], CC: Yanet Mirza DO Upper Doubler: Signed 17-Oct-2014 Breast Limited Unilateral Result: Comments: See Note; NOTES: [facility] Imaging Services [address] [place] [address] Ultrasound Report MR#: [id number] Acct: [id number] Name: IMANI VEGA Rep #: [id number] : 1975 F 39 From: Wilbur King MD PCP: Yanet Mirza DO Status: REG CLI Study: Breast Limited Unilateral Date of Exam: 10/17/14 Exam# [id number] Ordering Dr: Yanet Mirza DO STUDY: ULTRASOUND BREAST - LEFT REASON FOR EXAM: Female, 39 years old. Abnormal screening mammogram. TECHNIQUE: Axial and longitudinal images of the LEFT breast were performed with a high resoluti on ultrasound transducer. COMPARISON: Comparison is made with prior mammogram dated October 11, 2014. FINDINGS: LEFT Breast: The superior aspect of the breast w as examined. There is normal glandular tissue. There is no evidence of solid or cystic mass lesion. The patient will be recalled for additional views. IMPRESSION : No sonographic abnormality is seen. The patient will be recalled for additional views. ASSESSMENT CATEGORY: BIRADS Category 0: Incomplete. Need additional trevor ging evaluation. A letter regarding these results will be sent to the patient by the facility within 30 days. Electronically Signed: Wilbur King MD at 12:38 EDT Tel [phone], Service support [phone], CC: Yanet Mirza DO Upper Doubler: Signed 11-Oct-2014 Bilat Scrn Digital AND CAD Result: Comments: See Note; NOTES: [facility] Imaging Services [address] [place] [address] Breast Imaging Report MR#: [id number] Acct: [id number] Name: IMANI VEGA Rep #: [id number] : 1975 F 39 From: Clyde Young MD PCP: Yanet Mirza DO Status: REG CLI Study: Bilat Scrn Digital AND CAD Date of Exam: 10/11/14 Exam# [id number] Ordering Dr: Yanet Mirza DO MAMMOGRAPHY - BILATERAL SCREENING REASON FOR EXAM: Female, 39 years old. Routine annual screening examination. PERTINENT HISTORY: Non-contributory. TECHNIQUE: Digital examination. Mediolateral o blique (MLO) and craniocaudad (CC) views of both breasts were obtained. CAD: CAD was performed on this study. COMPARISON: None. FINDINGS: Breast Composition: The breasts are heterogeneously dense, which may obscure small masses. New asymmetric density is seen in the upper part of the left breast measures approximately 8 mm. Further evaluation by ultrasou nd of the upper part of the left breast would be recommended. No other significant abnormalities are identified. IMPRESSION: Further imaging evaluation recomme nded, as described above. (E) ASSESSMENT CATEGORY: BIRADS Category 0: Incomplete. Need additional ultrasound imaging evaluation. A letter regarding these results will be sent to the patient by the facility within 30 days. Approximately 10% of breast cancers are not detected by mammography. A normal mammogram should not delay biopsy of a clinically suspiciou s abnormality. Electronically Signed: Pascale Young MD at 17:59 EDT Tel , Service support [phone], CC: Yanet Mirza DO Upper Doubler: Signed 26-May-2013 Breast Unilateral Result: Comments: See Note; NOTES: [facility] Imaging Services [address] [place] [address] Ultrasound Report MR#: [id number] Acct: [id number] Name: IMANI VEGA Rep #: [id number] : 1975 F 38 From: Wilbur King MD PCP: Status: REG CLI Study: Breast Unilateral Date of Exam: 05/26/13 Exam# [id number] Ordering Dr: Yanet Mirza DO STUDY: ULTRASOUND HORTENCIA AST(S) - RIGHT REASON FOR EXAM: Female, 38 years old. Abnormal screening mammogram. TECHNIQUE: Axial and longitudinal images of the RIGHT breast were performed with a high resolution ultrasound tra nsducer. COMPARISON: Comparison is made with prior mammogram dated May 23, 2013. FINDINGS: RIGHT BREAST: There is a 5 mm x 4 mm x 3 mm well-defined and n o cord nodule at the 6:00 position of the breast at 4 cm from the nipple. This most likely density septated cyst. IMPRESSION: Small septated cyst at the 6:00 po sition of the breast at 4 cm from the nipple. Routine mammographic followup is recommended. ASSESSMENT CATEGORY: BIRADS Category 2: Benign finding(s). Signed: Wilbur King M.D. May 26, 2013 at 12:47:27 PM EDT [phone] Electronically Signed GP/GP If you are the referring physician and would like to consult with the radiologist who provi ded this interpretation, please contact Wilbur King M.D. at [phone]. If this radiologist is unavailable, you will be directed to another radiologist to assist. If you are a patient with a question regarding this report, please contact your referring physician directly. Professional Interpretation Provided By: [employer] Phone , These documents con tain legally protected and confidential health information intended only for the use of the individual or entity named above. If you are not the intended recipient, you are hereby notified that any d isclosure, copying, distribution, or other use of these documents is strictly prohibited. If you have received this information in error, please notify the sender immediately and arrange for the retur n or destruction of these documents. CC: Yanet Mirza DO Upper Doubler: Signed 23-May-2013 Bilat Scrn Digital & CAD Result: Comments: See Note; NOTES: [facility] Imaging Services [address] [place] [address] Breast Imaging Report MR#: [id number] Acct: [id number] Name: IMANI VEGA Rep #: [id number] : 1975 F 38 From: Wilbur King MD PCP: Status: REG CLI Exam# [id number] Ordering Dr: Yanet Mirza DO MAMMOGRAPHY - BILATERAL SCREENING REASON FOR EXAM: Female, 38 y ears old. Routine annual screening examination. PERTINENT HISTORY: Non-contributory. TECHNIQUE: Digital examination. Mediolateral oblique (MLO) and craniocaudad (CC) views of both breasts were obt ained. CAD: CAD was performed on this study. COMPARISON: None. Baseline examination. FINDINGS: The breast composition is heterogeneously dense - ranging from 5 1% to 75% of the breast tissue. Findings suggestive of an 8.3 mm nodule in the upper deep midportion of the right breast. Correlation with ultrasound is recommended. No other significant abnormali ties are identified. IMPRESSION: Possible nodular density in the right breast as described. Correlation with ultrasound is recommended. ASSESSMENT CATEGORY: BIRADS Category 0: Incomplete. Need additional imaging evaluation. A letter regarding these results will be sent to the patient by the facility within 30 days. Ap proximately 10% of breast cancers are not detected by mammography. A normal mammogram should not delay biopsy of a clinically suspicious abnormality. Signed: Wilbur King M.D. May 23 013 at 9:00:06 AM EDT [phone] Electronically Signed GP/GP If you are the referring physician and would like to consult with the radiologist who provided this interpretation, please contact Edu King M.D. at [phone]. If this radiologist is unavailable, you will be directed to another radiologist to assist. If you are a patient with a question regarding this report, please contact your referring physician directly. Professional Interpretation Provided By: [employer] Phone , These documents contain legally protected and confidential h ealth information intended only for the use of the individual or entity named above. If you are not the intended recipient, you are hereby notified that any disclosure, copying, distribution, or othe r use of these documents is strictly prohibited. If you have received this information in error, please notify the sender immediately and arrange for the return or destruction of these documents. CC: Yanet Mirza DO Upper Doubler: Signed Family History Unknown Family Member Name Dates Details Brother 1 Comments: living and healthy Status: Active Father Comments: living and high chol- kidney issues, colon polyps - in his 70s Status: Active longevity in family grandparents live into the 90s Status: Active Maternal Grandmother Comments: living and thryoid issues Status: Active Mother Comments: living and high chol Status: Active Social History Name Dates Details Alcohol Use: Occasional alcohol use. 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 Comments: 09/11/11 Status: Active Smoking Status Name Dates Details Never smoker Vital Signs Date Test Result Details :36 Temperature 99.3 f Comments: Method: Temporal Pulse 92 /min Comments: Pattern: Regular Respiration Rate 16 /min Comments: Pattern: Unlabored BP Systolic 114 mm[Hg] Comments: Patient Position: Sitting; Cuff Location: Left Arm; Cuff Size: Standard BP Diastolic 62 mm[Hg] Comments: Patient Position: Sitting; Cuff Location: Left Arm; Cuff Size: Standard Weight 108 lb Height 60.75 in Body Mass Index Calculated 20.57 kg/m2 Body Surface Area Calculated 1.45 m2 :47 Temperature 98 f Comments: Method: Temporal Pulse 75 /min Comments: Pattern: Regular Respiration Rate 16 /min Comments: Pattern: Unlabored O2 SAT 98 % Comments: Room air BP Systolic 100 mm[Hg] Comments: Patient Position: Sitting; Cuff Location: Left Arm; Cuff Size: Standard BP Diastolic 64 mm[Hg] Comments: Patient Position: Sitting; Cuff Location: Left Arm; Cuff Size: Standard Weight 108 lb Height 60.75 in Body Mass Index Calculated 20.57 kg/m2 Body Surface Area Calculated 1.45 m2 :00 Temperature 97.4 f Comments: Method: Temporal Pulse 84 /min Comments: Pattern: Regular Respiration Rate 18 /min Comments: Pattern: Unlabored O2 SAT 99 % Comments: Room air BP Systolic 98 mm[Hg] Comments: Patient Position: Sitting; Cuff Location: Left Arm; Cuff Size: Standard BP Diastolic 64 mm[Hg] Comments: Patient Position: Sitting; Cuff Location: Left Arm; Cuff Size: Standard Weight 107 lb Height 60.75 in Body Mass Index Calculated 20.38 kg/m2 Body Surface Area Calculated 1.44 m2 :13 Temperature 98.8 f Comments: Method: Temporal Pulse 70 /min Comments: Pattern: Regular Respiration Rate 16 /min Comments: Pattern: Unlabored BP Systolic 100 mm[Hg] Comments: Patient Position: Sitting; Cuff Location: Left Arm; Cuff Size: Standard BP Diastolic 68 mm[Hg] Comments: Patient Position: Sitting; Cuff Location: Left Arm; Cuff Size: Standard Weight 103 lb Height 60.75 in Body Mass Index Calculated 19.62 kg/m2 Body Surface Area Calculated 1.42 m2 :15 Temperature 97.8 f Comments: Method: Temporal Pulse 84 /min Comments: Pattern: Regular Respiration Rate 16 /min Comments: Pattern: Unlabored O2 SAT 98 % Comments: Room air BP Systolic 100 mm[Hg] Comments: Patient Position: Sitting; Cuff Location: Left Arm; Cuff Size: Standard BP Diastolic 62 mm[Hg] Comments: Patient Position: Sitting; Cuff Location: Left Arm; Cuff Size: Standard Weight 103 lb Height 60.75 in Body Mass Index Calculated 19.62 kg/m2 Body Surface Area Calculated 1.42 m2 :12 Temperature 98.2 f Comments: Method: Temporal Pulse 82 /min Comments: Pattern: Regular Respiration Rate 16 /min Comments: Pattern: Unlabored O2 SAT 98 % Comments: Room air BP Systolic 98 mm[Hg] Comments: Patient Position: Sitting; Cuff Location: Left Arm; Cuff Size: Standard BP Diastolic 72 mm[Hg] Comments: Patient Position: Sitting; Cuff Location: Left Arm; Cuff Size: Standard Weight 109 lb Height 60.75 in Body Mass Index Calculated 20.77 kg/m2 Body Surface Area Calculated 1.46 m2 :12 Temperature 97.8 f Comments: Method: Temporal Pulse 80 /min Comments: Pattern: Regular Respiration Rate 16 /min Comments: Pattern: Unlabored O2 SAT 98 % Comments: Room air BP Systolic 114 mm[Hg] Comments: Patient Position: Sitting; Cuff Location: Left Arm; Cuff Size: Standard BP Diastolic 72 mm[Hg] Comments: Patient Position: Sitting; Cuff Location: Left Arm; Cuff Size: Standard Weight 110 lb Height 60.75 in Body Mass Index Calculated 20.96 kg/m2 Body Surface Area Calculated 1.46 m2 :26 Temperature 98.2 f Comments: Method: Temporal Pulse 74 /min Comments: Pattern: Regular Respiration Rate 16 /min Comments: Pattern: Unlabored BP Systolic 100 mm[Hg] Comments: Patient Position: Sitting; Cuff Location: Left Arm; Cuff Size: Standard BP Diastolic 60 mm[Hg] Comments: Patient Position: Sitting; Cuff Location: Left Arm; Cuff Size: Standard Weight 106 lb Height 60.75 in Body Mass Index Calculated 20.19 kg/m2 Body Surface Area Calculated 1.44 m2 :06 Temperature 98.9 f Pulse 74 /min Comments: Pattern: Regular Respiration Rate 16 /min Comments: Pattern: Unlabored BP Systolic 100 mm[Hg] Comments: Patient Position: Sitting; Cuff Location: Left Arm; Cuff Size: Standard BP Diastolic 62 mm[Hg] Comments: Patient Position: Sitting; Cuff Location: Left Arm; Cuff Size: Standard Weight 110 lb Height 60.75 in Body Mass Index Calculated 20.96 kg/m2 Body Surface Area Calculated 1.46 m2 :35 Temperature 97.5 f Pulse 74 /min Comments: Pattern: Regular Respiration Rate 16 /min Comments: Pattern: Unlabored BP Systolic 102 mm[Hg] Comments: Patient Position: Sitting; Cuff Location: Left Arm; Cuff Size: Standard BP Diastolic 78 mm[Hg] Comments: Patient Position: Sitting; Cuff Location: Left Arm; Cuff Size: Standard Weight 107 lb Height 60.75 in Body Mass Index Calculated 20.38 kg/m2 Body Surface Area Calculated 1.44 m2 :09 Temperature 98.6 f Comments: Method: Oral Pulse 72 /min Comments: Pattern: Regular Respiration Rate 16 /min Comments: Pattern: Unlabored BP Systolic 122 mm[Hg] Comments: Patient Position: Sitting; Cuff Location: Left Arm; Cuff Size: Standard BP Diastolic 84 mm[Hg] Comments: Patient Position: Sitting; Cuff Location: Left Arm; Cuff Size: Standard Weight 106 lb Height 60.75 in Body Mass Index Calculated 20.19 kg/m2 Body Surface Area Calculated 1.44 m2 :46 Temperature 96.4 f Comments: Method: Oral Pulse 60 /min Comments: Pattern: Regular Respiration Rate 18 /min Comments: Pattern: Unlabored BP Systolic 118 mm[Hg] Comments: Patient Position: Sitting; Cuff Location: Left Arm; Cuff Size: Large BP Diastolic 80 mm[Hg] Comments: Patient Position: Sitting; Cuff Location: Left Arm; Cuff Size: Large Weight 108 lb Height 60.75 in Body Mass Index Calculated 20.57 kg/m2 Body Surface Area Calculated 1.45 m2 :22 Temperature 96.8 f Pulse 84 /min Comments: Pattern: Regular Respiration Rate 18 /min Comments: Pattern: Unlabored BP Systolic 100 mm[Hg] Comments: Patient Position: Sitting; Cuff Location: Left Arm; Cuff Size: Large BP Diastolic 68 mm[Hg] Comments: Patient Position: Sitting; Cuff Location: Left Arm; Cuff Size: Large Weight 108 lb Height 60.75 in Body Mass Index Calculated 20.57 kg/m2 Body Surface Area Calculated 1.45 m2 :21 Temperature 98.3 f Pulse 92 /min Comments: Pattern: Regular Respiration Rate 18 /min Comments: Pattern: Unlabored BP Systolic 112 mm[Hg] Comments: Patient Position: Sitting; Cuff Location: Left Arm; Cuff Size: Standard BP Diastolic 82 mm[Hg] Comments: Patient Position: Sitting; Cuff Location: Left Arm; Cuff Size: Standard Weight 106 lb Height 60.75 in Body Mass Index Calculated 20.19 kg/m2 Body Surface Area Calculated 1.44 m2 Results Date Description Value Details [id number] CBC W/Diff, Automated Comments: [facility] [address] [place], [place], [id number] Absolute Lymph 0.99 {X10_3/ul} (Normal) Range: 0.83-4.51 Absolute Neut 3.5 {X10_3/uL} (Normal) Range: 2.0-7.7 IM GRAN % 0.000 % (Normal) Range: 0.0-0.9 Comments: IG% - Immature Granulocytes (promyelocytes, myelocytes andmetamyelocytes) > 1% indicates that a LEFT SHIFT is Present. BASO% 0.2 % (Normal) Range: 0-1 EO% 1.9 % (Normal) Range: 0-5 MONO% 13.1 % (Abnormal) Range: 0-10 LY% 18.9 % (Abnormal) Range: 19-41 NEUT% 65.9 % (Normal) Range: 47-70 MPV 11.4 fL (Normal) Range: 6.2-12.0 PLT 192 K/mm3 (Normal) Range: 150-450 RDW SD 49.8 fL (Abnormal) Range: 35.1-43.9 RDW CV 16.4 % (Abnormal) Range: 11.6-14.6 MCHC 31.9 {g/gl} (Abnormal) Range: 32-36 MCH 26.2 pg (Abnormal) Range: 27.0-32.0 MCV 82.1 fL (Normal) Range: 81-99 HCT 36.7 % (Abnormal) Range: 37-47 HGB 11.7 g/dL (Abnormal) Range: 12.0-15.0 RBC 4.47 {M/mm3} (Normal) Range: 4.2-5.4 WBC 5.3 K/mm3 (Normal) Range: 4.4-11.0 2-Whu-093450:11 Comprehensive Metabolic Profil Comments: [facility] [address] [place], [place], [id number] GAP 6 (Normal) Range: 5-15 CO2 27.0 mmol/L (Normal) Range: 21.0-32.0 CL 106 mmol/L (Normal) Range: 98-107 K 4.3 mmol/L (Normal) Range: 3.5-5.1 NA 139 mmol/L (Normal) Range: 136-145 T BILI 0.50 mg/dL (Normal) Range: 0.20-1.00 ALT 16 U/L (Normal) Range: 13-56 ALK P 47 U/L (Normal) Range: 45-117 AST 19 U/L (Normal) Range: 15-37 CA 8.8 mg/dL (Normal) Range: 8.5-10.1 A/G 1.1 {RATIO} (Normal) Range: 0.9-2.4 GLOB 3.4 g/dL (Normal) Range: 2.2-4.2 ALB 3.8 g/dL (Normal) Range: 3.2-5.0 T PROT 7.2 g/dL (Normal) Range: 6.4-8.2 BUN/CRE 13.3 {RATIO} (Normal) Range: 10-20 EST GFR - AA 96 mL/min (Normal) Comments: GFR Calc EST GFR 79 mL/min (Normal) Comments: Non- GFR Calc CREAT,SERUM 0.83 mg/dL (Normal) Range: 0.55-1.02 Comments: The validity of the calculated GFR AND GFRAA in patients over70 years has not been determined. Clinical correlation isessential. BUN 11 mg/dL (Normal) Range: 7-18 GLU 66 mg/dL (Abnormal) Range: 74-106 Comments: Please note revised GLUCOSE reference range dxlttpmpo65/02/2018. 7-Usg-225241:11 Thyroid Stim Hormone (TSH) Comments: [facility] [address] [place], [place], [id number] TSH 0.99 {uIU/mL} (Normal) Range: 0.358-3.74 9-Xvh-078768:11 VITAMIN B-12 (CYANOCOBALAMIN) Comments: stat; [facility] [address] [place], [place], [phone] ([address]) Vitamin B12 623 pg/mL (Normal) Range: 211-911 3-Fok-474707:16 ,Urine Comments: [facility] [address] [place], [place], [phone] HCGUQUAL Negative {Negative} (Normal) Comments: Very dilute urine specimens, as indicated by a low specificgravity, may not contain medical representative levels of hCG.If is still suspected, a first morning urinespecimen should be collected 48 hours later and tested. 31-Bts-215022:37 CBC W/AUTO DIFF WBC (96135) Comments: PATIENT WAS FASTINGPERFORMED BY: LabCoSaint [facility]abas Behavior[facility] CenterZhgeme6044 [facility] [id number] Immature Grans (Abs) 0.0 {x10E3/uL} (Normal) Range: 0.0-0.1 Immature Granulocytes 0 % (Normal) Baso (Absolute) 0.0 {x10E3/uL} (Normal) Range: 0.0-0.2 Eos (Absolute) 0.1 {x10E3/uL} (Normal) Range: 0.0-0.4 Monocytes(Absolute) 0.6 {x10E3/uL} (Normal) Range: 0.1-0.9 Lymphs (Absolute) 1.3 {x10E3/uL} (Normal) Range: 0.7-3.1 Neutrophils (Absolute) 4.2 {x10E3/uL} (Normal) Range: 1.4-7.0 Basos 0 % (Normal) Eos 2 % (Normal) Monocytes 10 % (Normal) Lymphs 20 % (Normal) Neutrophils 68 % (Normal) Platelets 219 {x10E3/uL} (Normal) Range: 150-379 RDW 15.4 % (Normal) Range: 12.3-15.4 MCHC 33.1 g/dL (Normal) Range: 31.5-35.7 MCH 25.6 pg (Abnormal) Range: 26.6-33.0 MCV 77 fL (Abnormal) Range: 79-97 Hematocrit 30.8 % (Abnormal) Range: 34.0-46.6 Hemoglobin 10.2 g/dL (Abnormal) Range: 11.1-15.9 RBC 3.98 {x10E6/uL} (Normal) Range: 3.77-5.28 WBC 6.2 {x10E3/uL} (Normal) Range: 3.4-10.8 17-Dpq-366061:37 METABOLIC PANEL, COMPREHENSIVE Comments: PATIENT WAS FASTINGPERFORMED BY: LabCoSaint Barnabas Behavior[facility] CenterJoexqp4106 [facility] [id number] ([id number]) ALT (SGPT) 9 [iU]/L (Normal) Range: 0-32 AST (SGOT) 15 [iU]/L (Normal) Range: 0-40 Alkaline Phosphatase 41 [iU]/L (Normal) Range: 39-117 Bilirubin, Total 0.4 mg/dL (Normal) Range: 0.0-1.2 A/G Ratio 1.6 (Normal) Range: 1.2-2.2 Globulin, Total 2.7 g/dL (Normal) Range: 1.5-4.5 Albumin 4.2 g/dL (Normal) Range: 3.5-5.5 Protein, Total 6.9 g/dL (Normal) Range: 6.0-8.5 Calcium 8.9 mg/dL (Normal) Range: 8.7-10.2 Carbon Dioxide, Total 21 mmol/L (Normal) Range: 20-29 Chloride 103 mmol/L (Normal) Range: 96-106 Potassium 4.0 mmol/L (Normal) Range: 3.5-5.2 Sodium 138 mmol/L (Normal) Range: 134-144 BUN/Creatinine Ratio 14 (Normal) Range: 9-23 eGFR If Africn Am 88 mL/min/1.73 (Normal) eGFR If NonAfricn Am 76 mL/min/1.73 (Normal) Creatinine 0.91 mg/dL (Normal) Range: 0.57-1.00 BUN 13 mg/dL (Normal) Range: 6-24 Glucose 79 mg/dL (Normal) Range: 65-99 93-Mui-353654:37 LIPID PANEL (95557) Comments: PATIENT WAS FASTINGPERFORMED BY: LigandalSaint Barnabas Behavioral Health CenterFdxmvh4690 [facility] [id number] LDL/HDL Ratio 1.7 {ratio} (Normal) Range: 0.0-3.2 Comments: LDL/HDL Ratio Men Women 1/2 Avg.Risk 1.0 1.5 Av g.Risk 3.6 3.2 2X Avg.Risk 6.2 5.0 3X Avg.Risk 8.0 6.1 LDL Cholesterol Calc 118 mg/dL (Abnormal) Range: 0-99 VLDL Cholesterol Carlos 20 mg/dL (Normal) Range: 5-40 HDL Cholesterol 68 mg/dL (Normal) Comments: Effective May 16, 2018, HDL Cholesterol reference interval will be changing to: Male Female 40 - [id number] 50 - [id number] Triglycerides 101 mg/dL (Normal) Range: 0-149 Cholesterol, Total 206 mg/dL (Abnormal) Range: 100-199 1-Vdc-455175:34 METABOLIC PANEL, Comments: PATIENT NOT FASTINGPERFORMED BY: LigandalSaint Barnabas Behavioral Health CenterVucpxv2975 [facility] [id number] BY: [address] [id number] COMPREHENSIVE (57488) ALT (SGPT) 9 [iU]/L (Normal) Range: 0-32 AST (SGOT) 15 [iU]/L (Normal) Range: 0-40 Alkaline Phosphatase 41 [iU]/L (Normal) Range: 39-117 Bilirubin, Total 0.4 mg/dL (Normal) Range: 0.0-1.2 A/G Ratio 1.6 (Normal) Range: 1.2-2.2 Globulin, Total 2.8 g/dL (Normal) Range: 1.5-4.5 Albumin 4.5 g/dL (Normal) Range: 3.5-5.5 Protein, Total 7.3 g/dL (Normal) Range: 6.0-8.5 Calcium 9.5 mg/dL (Normal) Range: 8.7-10.2 Carbon Dioxide, Total 23 mmol/L (Normal) Range: 18-29 Chloride 102 mmol/L (Normal) Range: 96-106 Potassium 4.4 mmol/L (Normal) Range: 3.5-5.2 Sodium 139 mmol/L (Normal) Range: 134-144 BUN/Creatinine Ratio 13 (Normal) Range: 9-23 eGFR If Africn Am 109 mL/min/1.73 (Normal) eGFR If NonAfricn Am 94 mL/min/1.73 (Normal) Creatinine 0.77 mg/dL (Normal) Range: 0.57-1.00 BUN 10 mg/dL (Normal) Range: 6-24 Glucose 88 mg/dL (Normal) Range: 65-99 5-Jbq-088638:34 TESTOSTERONE FREE (77323) Comments: PATIENT NOT FASTINGPERFORMED BY: [employer] Byigzn5820 [facility] [id number] BY: [employer] [id number] Free Testosterone(Direct) 0.8 pg/mL (Normal) Range: 0.0-4.2 7-Xsu-395636:34 PROLACTIN (63424) Comments: PATIENT NOT FASTINGPERFORMED BY: [employer] Kshfwy9431 [facility] [id number] BY: [address] [id number] Prolactin 5.6 ng/mL (Normal) Range: 4.8-23.3 6-Cgk-550832:34 PT (PROTHROMBIN TIME) Comments: PATIENT NOT FASTINGPERFORMED BY: [employer] PharmaceuticalsSaint Barnabas Behavioral Health CenterAtomon7277 [facility] [id number] BY: [employer] [id number] (30040) Prothrombin Time 10.2 {sec} (Normal) Range: 9.1-12.0 INR 1.0 (Normal) Range: 0.8-1.2 Comments: Reference interval is for non-anticoagulated patients. . Suggested INR therapeutic range for Vitamin K anta gonist therapy: Standard Dose (moderate intensity therapeutic range): 2.0 - 3.0 Higher intensity therapeutic range 2.5 - 3.5 2-Qeu-087988:34 PTT (ACTIVATED PARTIAL Comments: PATIENT NOT FASTINGPERFORMED BY: [address] [id number] BY: [address] [id number] THROMBOPLASTIN TIME) (24755) aPTT 26 {sec} (Normal) Range: 24-33 Comments: This test has not been validated for monitoring unfractionated heparintherapy. aPTT-based therapeutic ranges for unfractionated heparintherapy have not been established. For general guidelines onHeparin monitoring, refer to the [facility] Directory of Services. 3-Quh-399032:34 CBC W/AUTO DIFF WBC Comments: PATIENT NOT FASTINGPERFORMED BY: [place] [id number] [facility] [id number] BY: [address] [id number] (23061) Immature Grans (Abs) 0.0 {x10E3/uL} (Normal) Range: 0.0-0.1 Immature Granulocytes 0 % (Normal) Baso (Absolute) 0.0 {x10E3/uL} (Normal) Range: 0.0-0.2 Eos (Absolute) 0.2 {x10E3/uL} (Normal) Range: 0.0-0.4 Monocytes(Absolute) 0.5 {x10E3/uL} (Normal) Range: 0.1-0.9 Lymphs (Absolute) 2.0 {x10E3/uL} (Normal) Range: 0.7-3.1 Neutrophils (Absolute) 4.1 {x10E3/uL} (Normal) Range: 1.4-7.0 Basos 0 % (Normal) Eos 3 % (Normal) Monocytes 8 % (Normal) Lymphs 29 % (Normal) Neutrophils 60 % (Normal) Platelets 259 {x10E3/uL} (Normal) Range: 150-379 RDW 14.1 % (Normal) Range: 12.3-15.4 MCHC 32.2 g/dL (Normal) Range: 31.5-35.7 MCH 26.3 pg (Abnormal) Range: 26.6-33.0 MCV 82 fL (Normal) Range: 79-97 Hematocrit 35.7 % (Normal) Range: 34.0-46.6 Hemoglobin 11.5 g/dL (Normal) Range: 11.1-15.9 RBC 4.37 {x10E6/uL} (Normal) Range: 3.77-5.28 WBC 6.8 {x10E3/uL} (Normal) Range: 3.4-10.8 59-Glx-78474:34 METABOLIC PANEL, COMPREHENSIVE Comments: PATIENT NOT FASTINGPERFORMED BY: [facility] Queqtb1683 [facility] [id number] ([id number]) ALT (SGPT) 6 [iU]/L (Normal) Range: 0-32 AST (SGOT) 15 [iU]/L (Normal) Range: 0-40 Alkaline Phosphatase, S 48 [iU]/L (Normal) Range: 39-117 Bilirubin, Total <0.2 mg/dL (Normal) Range: 0.0-1.2 A/G Ratio 1.8 (Normal) Range: 1.2-2.2 Globulin, Total 2.6 g/dL (Normal) Range: 1.5-4.5 Albumin, Serum 4.6 g/dL (Normal) Range: 3.5-5.5 Protein, Total, Serum 7.2 g/dL (Normal) Range: 6.0-8.5 Calcium, Serum 9.3 mg/dL (Normal) Range: 8.7-10.2 Carbon Dioxide, Total 23 mmol/L (Normal) Range: 18-29 Chloride, Serum 100 mmol/L (Normal) Range: 96-106 Potassium, Serum 4.3 mmol/L (Normal) Range: 3.5-5.2 Sodium, Serum 141 mmol/L (Normal) Range: 134-144 BUN/Creatinine Ratio 20 (Normal) Range: 9-23 eGFR If Africn Am 99 mL/min/1.73 (Normal) eGFR If NonAfricn Am 86 mL/min/1.73 (Normal) Creatinine, Serum 0.83 mg/dL (Normal) Range: 0.57-1.00 BUN 17 mg/dL (Normal) Range: 6-24 Glucose, Serum 95 mg/dL (Normal) Range: 65-99 86-Zcr-88290:34 CBC, PLATELETS & MANUAL DIFF Comments: PATIENT NOT FASTINGPERFORMED BY: [facility] Sdgpqx7981 [facility] [id number] ([id number]) Immature Grans (Abs) 0.0 {x10E3/uL} (Normal) Range: 0.0-0.1 Immature Granulocytes 0 % (Normal) Baso (Absolute) 0.0 {x10E3/uL} (Normal) Range: 0.0-0.2 Eos (Absolute) 0.2 {x10E3/uL} (Normal) Range: 0.0-0.4 Monocytes(Absolute) 0.5 {x10E3/uL} (Normal) Range: 0.1-0.9 Lymphs (Absolute) 1.6 {x10E3/uL} (Normal) Range: 0.7-3.1 Neutrophils (Absolute) 3.8 {x10E3/uL} (Normal) Range: 1.4-7.0 Basos 0 % (Normal) Eos 3 % (Normal) Monocytes 8 % (Normal) Lymphs 25 % (Normal) Neutrophils 64 % (Normal) Platelets 226 {x10E3/uL} (Normal) Range: 150-379 RDW 15.1 % (Normal) Range: 12.3-15.4 MCHC 32.2 g/dL (Normal) Range: 31.5-35.7 MCH 27.0 pg (Normal) Range: 26.6-33.0 MCV 84 fL (Normal) Range: 79-97 Hematocrit 38.2 % (Normal) Range: 34.0-46.6 Hemoglobin 12.3 g/dL (Normal) Range: 11.1-15.9 RBC 4.55 {x10E6/uL} (Normal) Range: 3.77-5.28 WBC 6.1 {x10E3/uL} (Normal) Range: 3.4-10.8 17-Ymr-82494:45 PAP I-G w/rfx hrHPV Comments: CYTOLOGY INFORMATION:- CLINICAL INFORMATION:- DATE LMP/MENOPAUSE: 04/27/17 LMP- COLLECTION VIAL: Thin Prep Vial- 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 of containers..01 ThinPrep VialLabCorp (refer to report for specific site)refer to report for address and phone number HPV RFLX Comment (Normal) Comments: The HPV DNA reflex criteria were not met with this specimenresult therefore, no HPV testing was performed.Performed at: [address] [id number] Director: Hazel Azul MD, Phone: [phone] PAPSMR Comment (Normal) Comments: The Pap smear is a screening test designed to aid in thedetection of premalignant and malignant conditions of theuterine cervix. It is not a diagnostic procedure andshould not be used as the sole means of detecting cervicalcancer. Both false-positive and false-negative reports dooccur. COMM . (Normal) TEST METHOD Comment (Normal) Comments: This liquid based ThinPrep(R) pap test was screened withthe use of an image guided system. PERFORM Comment (Normal) Comments: Torrey Marquis, Lens Molder (ASCP) ADEQ Comment (Normal) Comments: Satisfactory for evaluation. Endocervical and/or squamous metaplasticcells (endocervical component) are present. DIAGN Comment (Normal) Comments: NEGATIVE FOR INTRAEPITHELIAL LESION AND MALIGNANCY. 89-Nsb-975771:03 Urinalysis, Office (69074) UA - LEUKOCYTE ESTERASE Negative (Normal) UA - NITRITE Negative (Normal) URINE UROBILINGN DANISHA TIMED Normal mg/dL (Normal) UA - PROTEIN Negative mg/dL (Normal) UA - PH 7 (Normal) UA - BLOOD Negative (Normal) UA - SPECIFIC GRAVITY 1.010 (Normal) UA - KETONES Negative mg/dL (Normal) UA - BILIRUBIN Negative (Normal) UA - GLUCOSE Negative (Normal) 75-Cpd-817377:23 URINE SHAYAN CULTURE-IDENTIFICATN Comments: PATIENT NOT FASTINGPERFORMED BY: [facility] Dbqueo2595 [facility] [id number] Information: SRC:UC (40080) Result 1 MUG (Normal) Comments: Mixed urogenital flora10,000-25,000 colony forming units per mL Urine Final report (Normal) Culture,Comprehensive 61-Wqz-30178:17 CBC W/AUTO DIFF WBC Comments: PATIENT WAS FASTINGPERFORMED BY: [facility] Kbkcbjsabt6874 [facility] [id number] BY: LabCoSaint [facility]abas Behavior[facility] CenterZlphfm9741 [facility] [id number] (31403) Immature Grans (Abs) 0.0 {x10E3/uL} (Normal) Range: 0.0-0.1 Immature Granulocytes 0 % (Normal) Baso (Absolute) 0.0 {x10E3/uL} (Normal) Range: 0.0-0.2 Eos (Absolute) 0.2 {x10E3/uL} (Normal) Range: 0.0-0.4 Monocytes(Absolute) 0.6 {x10E3/uL} (Normal) Range: 0.1-0.9 Lymphs (Absolute) 1.4 {x10E3/uL} (Normal) Range: 0.7-3.1 Neutrophils (Absolute) 3.9 {x10E3/uL} (Normal) Range: 1.4-7.0 Basos 1 % (Normal) Eos 4 % (Normal) Monocytes 9 % (Normal) Lymphs 23 % (Normal) Neutrophils 63 % (Normal) Platelets 194 {x10E3/uL} (Normal) Range: 150-379 RDW 15.5 % (Abnormal) Range: 12.3-15.4 MCHC 31.9 g/dL (Normal) Range: 31.5-35.7 MCH 26.6 pg (Normal) Range: 26.6-33.0 MCV 83 fL (Normal) Range: 79-97 Hematocrit 38.2 % (Normal) Range: 34.0-46.6 Hemoglobin 12.2 g/dL (Normal) Range: 11.1-15.9 RBC 4.58 {x10E6/uL} (Normal) Range: 3.77-5.28 WBC 6.2 {x10E3/uL} (Normal) Range: 3.4-10.8 :17 METABOLIC PANEL, Comments: PATIENT WAS FASTINGPERFORMED BY: [employer] [id number] BY: LabXbio SystemsSaint Barnabas Behavioral Health CenterLtjoup3805 [facility] [id number] COMPREHENSIVE (78994) ALT (SGPT) 6 [iU]/L (Normal) Range: 0-32 AST (SGOT) 12 [iU]/L (Normal) Range: 0-40 Alkaline Phosphatase, S 44 [iU]/L (Normal) Range: 39-117 Bilirubin, Total 0.5 mg/dL (Normal) Range: 0.0-1.2 A/G Ratio 1.5 (Normal) Range: 1.2-2.2 Globulin, Total 2.8 g/dL (Normal) Range: 1.5-4.5 Albumin, Serum 4.2 g/dL (Normal) Range: 3.5-5.5 Protein, Total, Serum 7.0 g/dL (Normal) Range: 6.0-8.5 Calcium, Serum 9.3 mg/dL (Normal) Range: 8.7-10.2 Carbon Dioxide, Total 23 mmol/L (Normal) Range: 18-29 Chloride, Serum 100 mmol/L (Normal) Range: 96-106 Potassium, Serum 4.1 mmol/L (Normal) Range: 3.5-5.2 Sodium, Serum 140 mmol/L (Normal) Range: 134-144 BUN/Creatinine Ratio 14 (Normal) Range: 9-23 eGFR If Africn Am 98 mL/min/1.73 (Normal) eGFR If NonAfricn Am 85 mL/min/1.73 (Normal) Creatinine, Serum 0.84 mg/dL (Normal) Range: 0.57-1.00 BUN 12 mg/dL (Normal) Range: 6-24 Glucose, Serum 76 mg/dL (Normal) Range: 65-99 :17 LIPOPROTEIN, BLD, BY NMR Comments: PATIENT WAS FASTINGPERFORMED BY: [address] [id number] BY: LabXbio SystemsSaint Barnabas Behavioral Health [id number] [facility] [id number]) LP-IR Score <25 (Normal) Comments: INSULIN RESISTANCE MARKER <--Insulin Sensitive Insulin Resistant--> Percentile in Reference PopulationInsulin Resistance ScoreLP-IR Score Low 25th 50th 75th High <27 27 45 63 >63LP-IR Score is inaccurate if patient is non-fasting. .The LP-IR score is a laboratory developed i [facility] that has beenassociated with insulin resistance and diabetes risk and should beused as one component of a physician's clinical assessment. TheLP-IR score listed above has not been cleared by the [place] Food andDrug Administration. LDL Size 21.6 nm (Normal) Comments: INTERPRETATIVE INFORMATION PARTICLE CONCENTRATION AND SIZE <--Lower CVD Risk Highe r CVD Risk--> LDL AND HDL PARTICLES Percentile in Reference Population HDL-P (total) High 75th 50th 25th Low >34.9 34.9 30.5 26.7 <26.7 . Small LDL-P Low 25th 50th 75th High <117 117 527 839 >839 . LDL Size <-Large (Pattern A)-> <-Small (Pattern B)-> 23.0 20.6 20.5 19.0 Small LDL-P and LDL Size are associated with CVD risk, but not afterLDL-P is taken into account. .These assays were developed and their performance characteristicsdetermined by [employer]. These assays have not been cleared by [place] Food and Drug Administration. The clinical utility of theselaboratory values have not been fully established. Small LDL-P 343 nmol/L (Normal) HDL-P (Total) 40.5 umol/L (Normal) Cholesterol, Total 204 mg/dL (Abnormal) Range: 100-199 Triglycerides 90 mg/dL (Normal) Range: 0-149 HDL-C 60 mg/dL (Normal) LDL-C 126 mg/dL (Abnormal) Range: 0-99 Comments: . Optimal < 100 Above optimal 100 - 129 Borderline 1 30 - 159 High 160 - 189 Very high > 189 .LDL-C is inaccurate if patient is non-fasting. LDL-P 1328 nmol/L (Abnormal) Comments: Low < 1000 Moderate 1000 - 1299 Borderline-High 1300 - 1599 High 1600 - 2000 Very High > 2000 15-Snq-405605:37 HEPATIC FUNCTION PANEL Comments: PATIENT NOT FASTINGPERFORMED BY: [employer] [facility] [id number] Information: [id number] ([id number]) ALT (SGPT) 11 [iU]/L (Normal) Range: 0-32 AST (SGOT) 17 [iU]/L (Normal) Range: 0-40 Alkaline Phosphatase, S 45 [iU]/L (Normal) Range: 39-117 Bilirubin, Direct 0.12 mg/dL (Normal) Range: 0.00-0.40 Bilirubin, Total 0.4 mg/dL (Normal) Range: 0.0-1.2 Albumin, Serum 4.3 g/dL (Normal) Range: 3.5-5.5 Protein, Total, Serum 6.9 g/dL (Normal) Range: 6.0-8.5 :34 BRENT (ANTINUCLEAR ANTIBODY) Comments: PATIENT NOT FASTINGPERFORMED BY: [employer]ogent[employer] PharmaceuticalsUNM Cancer CenterUiubqj1109 [facility] [id number] ([id number]) BRENT Direct Negative (Normal) :34 ANTI-LIVER/KIDNEY MICROSOMAL Comments: PATIENT NOT FASTINGPERFORMED BY: Cogentus PharmaceuticalsSaint Barnabas Behavioral Health CenterAkmeoz6733 [facility] [id number] ANTIBODY (60195) Thyroid Peroxidase (TPO) Ab 7 {IU/mL} (Normal) Range: 0-34 :34 ASM (ANTI SMOOTH MUSCLE Comments: PATIENT NOT FASTINGPERFORMED BY: Cogentus PharmaceuticalsSaint Barnabas Behavioral Health CenterQgnwxs0890 [facility] [id number] ANTIBODY) (14772) Actin (Smooth Muscle) Antibody 9 {Units} (Normal) Range: 0-19 Comments: Negative 0 - 19 Weak positive 20 - 30 Moderate to strong positive >30 . Actin Antibodies are found in 52-85% of patients with autoimmune hepatitis or chronic active hepatitis and in 22% of patients with primary biliary cirrhosis. :34 CERULOPLASMIN (04076) Comments: PATIENT NOT FASTINGPERFORMED BY: Palatin TechnologiesMunson Healthcare Cadillac Hospital6370 [facility] [id number] Ceruloplasmin 26.5 mg/dL (Normal) Range: 19.0-39.0 :34 FERRITIN (97179) Comments: PATIENT NOT FASTINGPERFORMED BY: [place] 6272270 [facility] [id number] Ferritin, Serum 16 ng/mL (Normal) Range: 15-150 :34 TRANSFERRIN (97950) Comments: PATIENT NOT FASTINGPERFORMED BY: Palatin TechnologiesWilliam Ville [id number] [facility] [id number] Transferrin 356 mg/dL (Normal) Range: 200-370 :34 ANTIMITOCHONDRIAL ANTIBODY Comments: PATIENT NOT FASTINGPERFORMED BY: Palatin TechnologiesMunson Healthcare [facility] Hospital6370 [facility] [id number] (11249) Mitochondrial (M2) Antibody <20.0 {Units} (Normal) Range: 0.0-20.0 Comments: Negative 0.0 - 20.0 Equivocal 20.1 - 24.9 Positive >24.9 . Mitochondrial (M2) Antibodies are found in 90-96% of patients with primary biliary cirrhosis. :34 HEPATITIS PANEL (73326) Comments: PATIENT NOT FASTINGPERFORMED BY: Pal[employer] TechnologiesWilliam Ville [id number] [facility] [id number] Hep C Virus Ab <0.1 {s/co_ratio} (Normal) Range: 0.0-0.9 Comments: Negative: < 0.8 Indeterminate: 0.8 - 0.9 Positive: > 0.9 . The CDC recommends that a positive HCV antibody result be followed up with a HCV Nucleic Acid Amplification test (837218). Hep B Core Ab, IgM Negative (Normal) HBsAg Screen Negative (Normal) Hep A Ab, IgM Negative (Normal) :34 HEPATIC FUNCTION PANEL Comments: PATIENT NOT FASTINGPERFORMED BY: LigandalKelly Ville [id number] [facility] [id number] Information: [id number] (19501) ALT (SGPT) 51 [iU]/L (Abnormal) Range: 0-32 AST (SGOT) 23 [iU]/L (Normal) Range: 0-40 Alkaline Phosphatase, S 64 [iU]/L (Normal) Range: 39-117 Bilirubin, Direct 0.10 mg/dL (Normal) Range: 0.00-0.40 Bilirubin, Total 0.4 mg/dL (Normal) Range: 0.0-1.2 Albumin, Serum 4.7 g/dL (Normal) Range: 3.5-5.5 Protein, Total, Serum 7.3 g/dL (Normal) Range: 6.0-8.5 :49 Magnesium (39591) Comments: PATIENT WAS FASTINGPERFORMED BY: Ligandal Vakkfs5148 [facility] [id number] Magnesium, Serum 2.1 mg/dL (Normal) Range: 1.6-2.3 46-Fkl-790841:49 LIPID PANEL (47091) Comments: PATIENT WAS FASTINGPERFORMED BY: Ligandal[address] [id number] LDL/HDL Ratio 1.8 {ratio_units} (Normal) Range: 0.0-3.2 Comments: LDL/HDL Ratio Men Women 1/2 Avg.Risk 1.0 1.5 Av g.Risk 3.6 3.2 2X Avg.Risk 6.2 5.0 3X Avg.Risk 8.0 6.1 LDL Cholesterol Calc 120 mg/dL (Abnormal) Range: 0-99 VLDL Cholesterol Carlos 16 mg/dL (Normal) Range: 5-40 HDL Cholesterol 66 mg/dL (Normal) Comments: According to ATP-III Guidelines, HDL-C >59 mg/dL is considered anegative risk factor for CHD. Triglycerides 80 mg/dL (Normal) Range: 0-149 Cholesterol, Total 202 mg/dL (Abnormal) Range: 100-199 :49 CBC W/AUTO DIFF WBC Comments: PATIENT WAS FASTINGPERFORMED BY: [facility]6370 [facility] [id number] Information: [id number] (58899) Immature Grans (Abs) 0.0 {x10E3/uL} (Normal) Range: 0.0-0.1 Immature Granulocytes 0 % (Normal) Baso (Absolute) 0.0 {x10E3/uL} (Normal) Range: 0.0-0.2 Eos (Absolute) 0.2 {x10E3/uL} (Normal) Range: 0.0-0.4 Monocytes(Absolute) 0.7 {x10E3/uL} (Normal) Range: 0.1-0.9 Lymphs (Absolute) 1.5 {x10E3/uL} (Normal) Range: 0.7-3.1 Neutrophils (Absolute) 7.5 {x10E3/uL} (Abnormal) Range: 1.4-7.0 Basos 0 % (Normal) Eos 2 % (Normal) Monocytes 7 % (Normal) Lymphs 15 % (Normal) Neutrophils 76 % (Normal) Platelets 262 {x10E3/uL} (Normal) Range: 150-379 RDW 14.0 % (Normal) Range: 12.3-15.4 MCHC 33.7 g/dL (Normal) Range: 31.5-35.7 MCH 27.3 pg (Normal) Range: 26.6-33.0 MCV 81 fL (Normal) Range: 79-97 Hematocrit 38.6 % (Normal) Range: 34.0-46.6 Hemoglobin 13.0 g/dL (Normal) Range: 11.1-15.9 RBC 4.77 {x10E6/uL} (Normal) Range: 3.77-5.28 WBC 10.0 {x10E3/uL} (Normal) Range: 3.4-10.8 84-Xsz-037514:49 METABOLIC PANEL, COMPREHENSIVE Comments: PATIENT WAS FASTINGPERFORMED BY: [facility]6370 [facility] [id number] ([id number]) ALT (SGPT) 160 [iU]/L (Abnormal) Range: 0-32 AST (SGOT) 124 [iU]/L (Abnormal) Range: 0-40 Alkaline Phosphatase, S 79 [iU]/L (Normal) Range: 39-117 Bilirubin, Total 0.4 mg/dL (Normal) Range: 0.0-1.2 A/G Ratio 1.4 (Normal) Range: 1.1-2.5 Globulin, Total 3.1 g/dL (Normal) Range: 1.5-4.5 Albumin, Serum 4.4 g/dL (Normal) Range: 3.5-5.5 Protein, Total, Serum 7.5 g/dL (Normal) Range: 6.0-8.5 Calcium, Serum 9.6 mg/dL (Normal) Range: 8.7-10.2 Carbon Dioxide, Total 23 mmol/L (Normal) Range: 18-29 Chloride, Serum 101 mmol/L (Normal) Range: 97-108 Potassium, Serum 4.5 mmol/L (Normal) Range: 3.5-5.2 Sodium, Serum 139 mmol/L (Normal) Range: 134-144 BUN/Creatinine Ratio 14 (Normal) Range: 9-23 eGFR If Africn Am 112 mL/min/1.73 (Normal) eGFR If NonAfricn Am 97 mL/min/1.73 (Normal) Creatinine, Serum 0.76 mg/dL (Normal) Range: 0.57-1.00 BUN 11 mg/dL (Normal) Range: 6-24 Glucose, Serum 80 mg/dL (Normal) Range: 65-99 52-Sdx-983108:49 TSH (48269) Comments: PATIENT WAS FASTINGPERFORMED BY: LabCoSaint Barnabas Behavior[facility] Health CenterYoebyf0111 [facility] [id number] TSH 0.807 {uIU/mL} (Normal) Range: 0.450-4.500 08-Vlr-57239:40 HEPATOBILLIARY IMG W/PHARM INT Radiology Report See Note (Normal) Comments: CLINICAL:37-year-old female with reported history of chest and upper abdominalpain. RADIONUCLIDE HEPATOBILIARY SCINTIGRAPHY COMPARISON:Abdominal ultrasound report 11/11/12 FINDINGS:Following the intrave nous administration of 5.1 mCi of Tc Mebrofenin,hepatobiliary images reveal: 1. Relatively prompt and homogeneous radiopharmaceutical concentrationisnoted by a normal sized liver. No parenchymal defec ts are identified.2. Gallbladder activity is identified at 15 minutes postradiopharmaceutical administration.3. Small intestinal tract is observed at 45 minutes following tracerinjection.4. Washout o f the radiopharmaceutical by the hepatic parenchyma appearsqualitatively normal. Cholecystokinin (0.02 ug/kg) was administered intravenously over f77-gtyggv period. The post CCK gallbladder ejection fr action cpvolahdcidf54 minutes following Cholecystokinin administration was noted to be 37.4%(normal greater than 35%). During 30 minutes of post CCK imaging, thereisno scintigraphic evidence of reflux o f the radiotracer into the commonhepatic duct or refilling of the gallbladder. There is scintigraphicevidence of post CCK duodenal gastric reflux. IMPRESSION:1. A gallbladder ejection fraction calcula jesse to be greater than 35%following the administration of Cholecystokinin makes the probability offunctional hepatobiliary disease (gallbladder and/or sphincter of Oddidyskinesia) and/or organic hepato biliary disease (chronic acalculouscholecystitis and/or cystic duct syndrome) to be low. (Uriel Edgar et al,Journal of Nuclear Medicine 32:1695, 1990). 2. 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 35, 1980). Signed:Arsen Hunt M.D.November 16, 2012 at 10:16:20 PM [id number] Signed RB/RB If you are the referr ing physician and would like to consult with theradiologist who provided this interpretation, please contact Shaq Ryan at [phone]. If this radiologist is unavailable, you will bedirected to another radiologist to assist. If you are a patient with a question regarding this report, pleasecontactyour referring physician directly. Professional Interpretation Provided By: [employer] Phone , These documents contain legally protected and confidential healthinformation intended only for the use of the individual or entity namedabove. If you are not the intended r ecipient, you are hereby notifiedthatany disclosure, copying, distribution, or other use of these documents isstrictly prohibited. If you have received this information in error,pleasenotify the sender immediately and arrange for the return or destructionofthese documents. Dictated on 11/16/12 0624 by Arsen Hunt DOTranscribed on 11/16/128 by ITS IMPORTSign by Arsen Hunt DO on 11/16/12 Sign by: Arsen Hunt DO :53 GALLBLADDER Radiology Report See Note (Normal) Comments: PROCEDURE: ABDOMINAL ULTRASOUND - RIGHT UPPER QUADRANT REASON FOR VISIT: Female, 37 years old. Chest and back pain. TECHNIQUE: Ultrasound evaluation of the right upper quadrant wasper formed with real-time and static holliday-scale imaging. TECHNICAL QUALITY: Adequate. COMPARISON: None. FINDINGS: Liver: The liver measures 13.6 cm. There is normal echogenicity of theliver. The bile ducts are within normal limits. There is hepatic colorflow. The direction of portal flow is hepatopetal. There is nodemonstrated mass lesion. Gallbladder: Normal distended gallbladder. The gallbladder wallm easures2.0 mm. There is a negative sonographic Espinosa's sign. There is nopericholecystic fluid. There are no gallstones. Common Bile Duct (C.B.D.): The common bile duct measures 3.0 mm. Pancreas: Normal size of the head, body and tail of the pancreas.Thereis normal echogenicity of the pancreas. There is no demonstratedpancreatic mass or cyst. Right Kidney: Normal size of the right kidney. T he right dfqqscqibfqpoo63.1 cm. Normal renal cortex. The right cortex measures 1.1 cm. Thereisno demonstrated renal mass or cyst. There is no right hydronephrosis. IMPRESSION:Normal right upper quad rant ultrasound examination. Signed:Wilbur King M.D.November 11, 2012 at 10:17:23 AM [id number] Signed GP/GP If you are the referring physician and would like to consult with the radiologist who provided this interpretation, please contact Shaq Renteria at [phone]. If this radiologist is unavailable, youwill be directed to another radiologist to assist. If you are a patient with a question regarding this report, pleasecontactyour referring physician directly. Professional Interpretation Provided By: SharonLP Amina, Phone , These docume nts contain legally protected and confidential healthinformation intended only for the use of the individual or entity namedabove. If you are not the intended recipient, you are hereby notifiedthatany d isclosure, copying, distribution, or other use of these documents isstrictly prohibited. If you have received this information in error,pleasenotify the sender immediately and arrange for the return or destructionofthese documents. Dictated on 11/11/12 0914 by Christine BUSTOS,FordriWolfgangranscribed on 11/11/12 1018 by ITS IMPORTSign by Wilbur King MD on 11/11/12 1019 Sign by: Wilbur King MD 08-Nov-2012 DDIMQ 0.45 {FEUug/mL} Range: 0.22-0.48 9:29 (Normal) Comments: NORMAL D-Dimer level indicates no DVT or PE. 01-Gmw-59371:31 CHEST PA AND LATERAL Radiology Report See Note (Normal) Comments: PROCEDURE: X-RAY CHEST REASON FOR EXAM: Female, 37 years old. Chest pressure andpalpitations. TECHNIQUE: PA and lateral views of the chest. COMPARISON: None. FINDINGS: The lungs are expanded. There is no demonstrated parenchymalabnormality.There is no demonstrated pleural abnormality. Normal heart and pericardium. Normal mediastinum and hoang. Normal visualized pulmonary arteries.Normalvisua lized aortic arch and descending thoracic aorta. Normal visualized thoracic spine. Normal visualized ribs, clavicles, andshoulders. There is no demonstrated abnormality of the visualized soft tissuestr uctures of the upper abdomen. IMPRESSION:Normal x-ray examination of the chest. Signed:Timmy Colon D.O.November 08, 2012 at 3:51:32 PM [id number] Signed DS/DS If you are the referring p hysicimarcello and would like to consult with theradiologist who provided this interpretation, please contact Timmy Colon D.O. at [phone]. If this radiologist is unavailable, you will bedirected to [facility] to assist. If you are a patient with a question regarding this report, pleasecontactyour referring physician directly. Professional Interpretation Provided By: Traci, Phone , These documents contain legally protected and confidential healthinformation intended only for the use of the individual or entity namedabove. If you are not the intended recipie nt, you are hereby notifiedthatany disclosure, copying, distribution, or other use of these documents isstrictly prohibited. If you have received this information in error,pleasenotify the sender santo minaya and arrange for the return or destructionofthese documents. Dictated on 11/08/12 0755 by Michel Goldman DOscribed on 11/08/12 1553 by ITS IMPORTSign by Dereje Goldman DO on 11/08/12 1554 Sign by: Dereje Goldman DO 09-Pca-84802:30 T3, FREE (TRIDOTHYRONINE) (94585) Comments: PATIENT WAS FASTINGPERFORMED BY: Lig[employer] Csmeqd2637 [facility] [id number] Triiodothyronine,Free,Serum 3.5 pg/mL (Normal) Range: 2.0-4.4 :30 T4, FREE (THYROXINE) (54168) Comments: PATIENT WAS FASTINGPERFORMED BY: Ligandal Jgbuhe6661 [facility] [id number] T4,Free(Direct) 1.23 ng/dL (Normal) Range: 0.82-1.77 :30 TSH (23564) Comments: PATIENT WAS FASTINGPERFORMED BY: Ligandal Hgqbjg1206 [facility] [id number] TSH 1.470 {uIU/mL} (Normal) Range: 0.450-4.500 :30 CBC WITH MANUAL DIFF Comments: PATIENT WAS FASTINGPERFORMED BY: Ligandal Mpcfhy3218 [facility] [id number] Information: [id number] (95456) Immature Grans (Abs) 0.0 {x10E3/uL} (Normal) Range: 0.0-0.1 Immature Granulocytes 0 % (Normal) Range: 0-2 Baso (Absolute) 0.0 {x10E3/uL} (Normal) Range: 0.0-0.2 Eos (Absolute) 0.2 {x10E3/uL} (Normal) Range: 0.0-0.4 Lymphs (Absolute) 1.7 {x10E3/uL} (Normal) Range: 0.7-4.5 Monocytes(Absolute) 0.5 {x10E3/uL} (Normal) Range: 0.1-1.0 Neutrophils (Absolute) 3.7 {x10E3/uL} (Normal) Range: 1.8-7.8 Basos 0 % (Normal) Range: 0-3 Eos 3 % (Normal) Range: 0-7 Monocytes 8 % (Normal) Range: 4-13 Lymphs 28 % (Normal) Range: 14-46 Neutrophils 61 % (Normal) Range: 40-74 Platelets 182 {x10E3/uL} (Normal) Range: 140-415 RDW 14.0 % (Normal) Range: 12.3-15.4 MCHC 32.2 g/dL (Normal) Range: 31.5-35.7 MCH 27.1 pg (Normal) Range: 26.6-33.0 MCV 84 fL (Normal) Range: 79-97 Hematocrit 42.3 % (Normal) Range: 34.0-46.6 Hemoglobin 13.6 g/dL (Normal) Range: 11.1-15.9 RBC 5.01 {x10E6/uL} (Normal) Range: 3.77-5.28 WBC 6.1 {x10E3/uL} (Normal) Range: 4.0-10.5 31-Nrd-07287:30 METABOLIC PANEL, COMPREHENSIVE Comments: PATIENT WAS FASTINGPERFORMED BY: [facility] [address] [id number] ([id number]) ALT (SGPT) 11 [iU]/L (Normal) Range: 0-32 AST (SGOT) 17 [iU]/L (Normal) Range: 0-40 Alkaline Phosphatase, S 42 [iU]/L (Normal) Range: 25-150 A/G Ratio 1.7 (Normal) Range: 1.1-2.5 Bilirubin, Total 0.6 mg/dL (Normal) Range: 0.0-1.2 Globulin, Total 2.8 g/dL (Normal) Range: 1.5-4.5 Albumin, Serum 4.7 g/dL (Normal) Range: 3.5-5.5 Protein, Total, Serum 7.5 g/dL (Normal) Range: 6.0-8.5 Calcium, Serum 9.5 mg/dL (Normal) Range: 8.7-10.2 Carbon Dioxide, Total 21 mmol/L (Normal) Range: 20-32 Chloride, Serum 105 mmol/L (Normal) Range: 97-108 Potassium, Serum 4.3 mmol/L (Normal) Range: 3.5-5.2 Sodium, Serum 139 mmol/L (Normal) Range: 134-144 BUN/Creatinine Ratio 16 (Normal) Range: 8-20 eGFR If Africn Am 94 mL/min/1.73 (Normal) eGFR If NonAfricn Am 82 mL/min/1.73 (Normal) Creatinine, Serum 0.89 mg/dL (Normal) Range: 0.57-1.00 BUN 14 mg/dL (Normal) Range: 6-20 Glucose, Serum 82 mg/dL (Normal) Range: 65-99 23-Qfb-285056:48 SOFT TISSUE NECK WITH CONTRAST Radiology Report See Note (Normal) Comments: PROCEDURE: CT SOFT TISSUE NECK WITH CONTRAST REASON FOR EXAM: Female, 36 years old. Swollen neck lymph nodes for 6months. TECHNIQUE: The patient was scanned in a multidetector CT scanner. Highre solution transaxial imaging was performed following intravenousadministration of 75 ml of Isovue 300 contrast material. Sagittal andcoronal images were reconstructed. COMPARISON: None. FINDINGS:No ab normality is seen in the nasopharynx or oropharynx. There is mildlyprominent soft tissue at the bilateral tongue base, greater on the right,possibly lymphoid hyperplasia. No lesion is seen in the hypo pharynx andlarynx, allowing for respiratory and swallowing artifacts. The thyroid gland appears normal. No lesion is seen in the submandibular glands. Both parotid glands arerather large, which may be within normal limits. There is a smallslightlyenhancing intraparotid node superficially in the left gland. Normal sized lymph nodes are seen in levels I- III and V. No normallylargeor ring enhancing ly mph nodes are identified. There are fibrotic changes at the lung apices, greater on the left. No significant degenerative changes are seen in the cervical spine. IMPRESSION:No mass lesion identified. Pr obable mild, reactive bilateral cervical lymphadenopathy. Nopathologic-appearing nodes are seen. Symmetric prominence of the bilateral parotid glands, likely within thelimits of normal. Dictated on 06/22/11 1301 by Alejandro BUSTOS,PamelaTranscribed on 06/23/1117 by ITS IMPORTSign by Alejandro BUSTOS,Elayne on 06/23/11917 Sign by: _ Elayne Allen MD 6-Vvc-799781:48 Microscopic Examination Comments: PATIENT WAS FASTINGPERFORMED BY: datatrackerox [facility] [id number] Bacteria Few (Normal) Mucus Threads Present (Normal) Epithelial Cells (non renal) 0-10 {/hpf} (Normal) Range: 0 - 10 RBC None seen {/hpf} (Normal) Range: 0 - 3 WBC 0-5 {/hpf} (Normal) Range: 0 - 5 5-Xzw-138374:37 SHAYAN CULTURE-OTHER (22299) Comments: PATIENT NOT FASTINGPERFORMED BY: [employer] Cook DaegisMaria [facility] [id number] Information: SRC:THRT [id number] Result 1 RRF (Normal) Comments: Routine respiratory kaylin Upper Respiratory Culture Final report (Normal) 8-Qej-081339:48 TSH (87364) Comments: PATIENT WAS FASTINGPERFORMED BY: datatrackerox DaegisMaria [facility] [id number] TSH 0.917 {uIU/mL} (Normal) Range: 0.450-4.500 7-Ppi-846588:48 EBV Panel (98498) Comments: PATIENT WAS FASTINGPERFORMED BY: [employer] [place] [id number] Interpretation: SPRCS (Normal) Comments: EBV Interpretation Chart . Interpretation VCA-IgM EA-IgG VCA-IgG NA-ABS . Susceptible - - - - Acute Infection + +or- +or- - Convalescent Phase +or- +or- + + Chronic or Reactivated - + + +or- Old Infection - - +or- + + Antibody Present - Antibody Absent EBV Nuclear Antigen Ab, IgG >8.0 {AI} (Abnormal) Range: 0.0-0.8 Comments: Negative <0.9 Equivocal 0.9 - 1.0 Positive >1.0 EBV Ab VCA, IgG >8.0 {AI} (Abnormal) Range: 0.0-0.8 Comments: Negative <0.9 Equivocal 0.9 - 1.0 Positive >1.0 EBV Early Antigen Ab, IgG 1.5 {AI} (Abnormal) Range: 0.0-0.8 Comments: Negative <0.9 Equivocal 0.9 - 1.0 Positive >1.0 EBV Ab VCA, IgM <0.2 {AI} (Normal) Range: 0.0-0.8 Comments: Negative <0.9 Equivocal 0.9 - 1.0 Positive >1.0 :48 LDH (LD) (LACTATE DEHYDROGENASE) Comments: PATIENT WAS FASTINGPERFORMED BY: LigandalSaint Barnabas Behavioral Health CenterRlropq6664 [facility] [id number] (47939) LDH 150 [iU]/L (Normal) Range: 0-214 :48 RHEUMATOID FACTOR-QUANT (53329) Comments: PATIENT WAS FASTINGPERFORMED BY: Palatin TechnologiesMunson Healthcare [facility] Hospital6370 [facility] [id number] RA Latex Turbid. 9.7 {IU/mL} (Normal) Range: 0.0-13.9 :48 SED RATE ERYTHROCYTE (39194) Comments: PATIENT WAS FASTINGPERFORMED BY: Palatin TechnologiesM[facility] Healthcare [facility] Hospital6370 [facility] [id number] Sedimentation Rate-Westergren 4 mm/h (Normal) Range: 0-39 3-Mbp-141779:48 C-REACTIVE PROTEIN (03568) Comments: PATIENT WAS FASTINGPERFORMED BY: LigandalUNM Cancer CenterOsftwp6493 [facility] [id number] C-Reactive Protein, Quant 0.9 mg/L (Normal) Range: 0.0-4.9 :48 BRENT (ANTINUCLEAR ANTIBODY) Comments: PATIENT WAS FASTINGPERFORMED BY: Ligandal Hhbnov6308 [facility] [id number] (26009) BRENT Direct Negative (Normal) :48 URINALYSIS, W/ MICRO (40787) Comments: PATIENT WAS FASTINGPERFORMED BY: LigandalSaint Barnabas Behavioral Health CenterLkypdq6185 [facility] [id number] Microscopic Examination See below: (Normal) Microscopic Examination MICRON (Normal) Comments: Microscopic follows if indicated. Nitrite, Urine Negative (Normal) Urobilinogen,Semi-Qn 0.2 mg/dL (Normal) Range: 0.0-1.9 Bilirubin Negative (Normal) Occult Blood Negative (Normal) Ketones Negative (Normal) Glucose Negative (Normal) Protein Negative (Normal) WBC Esterase Negative (Normal) Appearance Clear (Normal) Urine-Color Yellow (Normal) pH 6.5 (Normal) Range: 5.0-7.5 Specific Wilcox 1.010 (Normal) Range: 1.005-1.030 :48 LIPID PANEL (49235) Comments: PATIENT WAS FASTINGPERFORMED BY: Ligandal Euaref1231 [facility] [id number] LDL/HDL Ratio 2.2 {ratio_units} (Normal) Range: 0.0-3.2 LDL Cholesterol Calc 138 mg/dL (Abnormal) Range: 0-99 HDL Cholesterol 63 mg/dL (Normal) Comments: According to ATP-III Guidelines, HDL-C >59 mg/dL is considered anegative risk factor for CHD. VLDL Cholesterol Carlos 17 mg/dL (Normal) Range: 5-40 Triglycerides 86 mg/dL (Normal) Range: 0-149 Cholesterol, Total 218 mg/dL (Abnormal) Range: 100-199 :48 CBC WITH MANUAL DIFF ([id number]) Comments: PATIENT WAS FASTINGPERFORMED BY: Ligandal [id number] [facility] [id number] Immature Grans (Abs) 0.0 {x10E3/uL} (Normal) Range: 0.0-0.1 Immature Granulocytes 0 % (Normal) Range: 0-2 Baso (Absolute) 0.0 {x10E3/uL} (Normal) Range: 0.0-0.2 Eos (Absolute) 0.2 {x10E3/uL} (Normal) Range: 0.0-0.4 Monocytes(Absolute) 0.5 {x10E3/uL} (Normal) Range: 0.1-1.0 Lymphs (Absolute) 1.5 {x10E3/uL} (Normal) Range: 0.7-4.5 Neutrophils (Absolute) 4.2 {x10E3/uL} (Normal) Range: 1.8-7.8 Basos 0 % (Normal) Range: 0-3 Eos 2 % (Normal) Range: 0-7 Monocytes 8 % (Normal) Range: 4-13 Lymphs 24 % (Normal) Range: 14-46 Neutrophils 66 % (Normal) Range: 40-74 Platelets 252 {x10E3/uL} (Normal) Range: 140-415 RDW 13.3 % (Normal) Range: 11.7-15.0 MCHC 32.3 g/dL (Normal) Range: 32.0-36.0 MCH 27.5 pg (Normal) Range: 27.0-34.0 MCV 85 fL (Normal) Range: 80-98 Hematocrit 40.5 % (Normal) Range: 34.0-44.0 Hemoglobin 13.1 g/dL (Normal) Range: 11.5-15.0 RBC 4.77 {x10E6/uL} (Normal) Range: 3.80-5.10 WBC 6.4 {x10E3/uL} (Normal) Range: 4.0-10.5 [id number] METABOLIC PANEL, COMPREHENSIVE Comments: PATIENT WAS FASTINGPERFORMED BY: [facility] [id number] [facility] [id number] ([id number]) ALT (SGPT) 8 [iU]/L (Normal) Range: 0-40 AST (SGOT) 22 [iU]/L (Normal) Range: 0-40 Alkaline Phosphatase, S 54 [iU]/L (Normal) Range: 25-150 Bilirubin, Total 0.4 mg/dL (Normal) Range: 0.0-1.2 A/G Ratio 1.6 (Normal) Range: 1.1-2.5 Globulin, Total 2.8 g/dL (Normal) Range: 1.5-4.5 Albumin, Serum 4.6 g/dL (Normal) Range: 3.5-5.5 Protein, Total, Serum 7.4 g/dL (Normal) Range: 6.0-8.5 Calcium, Serum 9.5 mg/dL (Normal) Range: 8.7-10.2 Carbon Dioxide, Total 22 mmol/L (Normal) Range: 20-32 Chloride, Serum 101 mmol/L (Normal) Range: 97-108 Potassium, Serum 4.2 mmol/L (Normal) Range: 3.5-5.2 Sodium, Serum 135 mmol/L (Normal) Range: 135-145 BUN/Creatinine Ratio 16 (Normal) Range: 8-20 eGFR If Africn Am 98 mL/min/1.73 (Normal) Comments: Note: A persistent eGFR <60 mL/min/1.73 m2 (3 months or more) mayindicate chronic kidney disease. An eGFR >59 mL/min/1.73 m2 with anelevated urine protein also may indicate chronic kidney disease.Calculated using CKD-EPI formula. eGFR If NonAfricn Am 85 mL/min/1.73 (Normal) Creatinine, Serum 0.87 mg/dL (Normal) Range: 0.57-1.00 BUN 14 mg/dL (Normal) Range: 6-20 Glucose, Serum 80 mg/dL (Normal) Range: 65-99 Plan of Care Name Dates Details Instructions Paresthesia : Eprescribed prescriptions (G8553) Indication: Paresthesia Rash : Solu Medrol Injection/ Education Indication: Rash [facility] : Eprescribed prescriptions (G8553) Indication: [facility] BMI between 19-24,adult : Eprescribed prescriptions (G8553) Indication: BMI between 19-24,adult Gastroesophageal reflux disease without esophagitis : Eprescribed prescriptions (G8553) Indication: Gastroesophageal reflux disease without esophagitis [facility] : Eprescribed prescriptions (G8553) Indication: [facility] Elevated blood-pressure reading without diagnosis of hypertension : Heartburn *: gerd Indication: Elevated blood-pressure reading without diagnosis of hypertension Abdominal pain, acute, right upper quadrant : Abdominal Pain: abdominal pain Indication: Abdominal pain, acute, right upper quadrant Sinusitis, acute : *Antibiotic Usage Education - Female Indication: Sinusitis, acute Planned Observations METABOLIC PANEL, COMPREHENSIVE ([id number])Indication: Paresthesia On: 03-Jun-20188:57 Request Comments: stat CBC W/AUTO DIFF WBC ([id number])Indication: Paresthesia On: 03-Jun-20188:57 Request Comments: stat TSH ([id number])Indication: Paresthesia On: 03-Jun-20188:57 Request Comments: stat CBC & PLATELETS (AUTO) ([id number])Indication: Anemia On: 45-Ese-352993:32 Request LIPID PANEL ([id number])Indication: Other and unspecified hyperlipidemia On: 5-Ssh-146894:47 Request HEPATIC FUNCTION PANEL ([id number])Indication: Other and unspecified hyperlipidemia On: 7-Ftn-427430:47 Request HEPATIC FUNCTION PANEL ([id number])Indication: Abnormal liver function On: 89-Opy-85818:55 Request Comments: to be drawn 01/08 D-Dimer ([id number])Indication: CHEST PAIN On: 00-Gdh-519845:08 Request Planned Encounters Medical; [facility] Ex[facility] (DF Nurse) - On: 24-Oct-2018 9:00 [facility] NURSE, DF Medical; [facility] Exam (Doctor) - On: 07-Nov-2018 8:30 [facility] Fast DO, Yanet A Fast DO, Yanet A Planned Procedures MAGNETIC RESONANCE IMAGING OF BRAIN On: 03-Jun-2018 Intent WITH AND WITHOUT CONTRAST ([id number])By: Fast DO, Yanet A Fast DO, Yanet A MRA OF BRAIN, [place] OF PACE, AND On: 03-Jun-2018 Intent CAROTID ARTERIES WITHOUT THEN WITH CONTRAST ([id number])By: Fast DO, Yanet A Fast DO, Yanet A Echo CompleteBy: Fast DO, Yanet A On: 03-Jun-2018 Intent Fast DO, Yanet A CT - Brain/Head (Without On: 03-Jun-2018 Intent Contrast)By: Fast DO, Yanet A Fast Comments: stat call rsults DO, Yanet A Flu Vaccine (Quadrivalent) [id number]: On: 04-May-2018 Intent Fast DO, Yanet A Fast DO, Yanet A Comments: Lot: #[id number]: 01/22/19Site: L dltd, IMDose prefilled syringegiven by: Drea reviewed and ABN signed Solu- Medrol Injection, 125mg On: 14-Apr-2018 Intent ([id number])By: Karen Montes DO Comments: Lot#[id number]:Site given:right gluteal Given By: martina ABN signed Solumedrol Ultrasound - ThyroidBy: Fast DO, On: 01-Nov-2017 Intent Yanet A Fast DO, Yanet A Ultrasound - PelvisBy: Fast DO, On: 01-Nov-2017 Intent Yanet A Fast DO, Yanet A SCREENING DIGITAL TOMOSYNTHESIS OF On: 01-Nov-2017 Intent BREAST ([id number])By: Fast DO, Yanet A Fast DO, Yanet A ELECTROCARDIOGRAM, COMPLETE (ECG) On: 01-Nov-2017 Intent ([id number])By: Fast DO, Yanet A Fast Comments: ekg showed normal sinus rhythym, normal axis, no acute st/t wave changes DO, Yanet A ELECTROCARDIOGRAM, COMPLETE (ECG) On: 01-Sep-2016 Intent ([id number])By: Fast DO, Yanet A Fast Comments: ekg showed normal sinus rhythym, normal axis, no acute st/t wave changes DO, Yanet A Radiology - Chest- PA and LatBy: On: 19-Aug-2016 Intent Fast DO, Yanet A Fast DO, Yanet A PFT - CompleteBy: Fast DO, Yanet A On: 19-Aug-2016 Intent Fast DO, Yanet A SCREENING DIGITAL TOMOSYNTHESIS OF On: 19-Aug-2016 Intent BREAST ([id number])By: Fast DO, Yanet A Comments: end september Fast DO, Yanet A Ultrasound - LiverBy: Fast DO, On: 23-Sep-2015 Intent Yanet A Fast DO, Yanet A MAMMOGRAM, SCREENING, BOTH BREAST On: 18-Sep-2015 Intent ([id number])By: Fast DO, Yanet A Fast DO, Yanet A Ultrasound - GallbladderBy: Fast On: 16-Oct-2014 Intent DO, Yanet A Fast DO, Yanet A Breast Ultrasound - LeftBy: Fast On: 15-Oct-2014 Intent DO, Yanet A Fast DO, Yanet A Breast Screening - BilateralBy: On: 03-May-2013 Intent Fast DO, Yanet A Fast DO, Yanet A Nuclear Medicine - HIDA w/CPKBy: On: 14-Nov-2012 Intent Fast DO, Yanet A Fast DO, Yanet A Spirometry ([id number])By: Fast DO, On: 07-Nov-2012 Intent Yanet A Fast DO, Yanet A Comments: good effort and curve normal Ultrasound - GallbladderBy: Fast On: 07-Nov-2012 Intent DO, Yanet A Fast DO, Yanet A Holter Monitor 24 hrsBy: Fast DO, On: 07-Nov-2012 Intent Yanet A Fast DO, Yanet A Radiology - Chest- PA and LatBy: On: 07-Nov-2012 Intent Fast DO, Yanet A Fast DO, Yanet A CT - NeckBy: Fast DO, Yanet A Fast On: 12-Jun-2011 Intent DO, Yanet A Comments: soft tissue TD Injection , IM ([id number])By: On: 01-Jun-2011 Intent Una Herron Comments: 2009 FLU VAC, SPLIT, >3 YEARS, INTRAMUSC On: 01-Jun-2011 Intent ([id number])By: Una Herron Comments: refuses Planned Medications INJECTION, METHYLPREDNISOLONE SODIUM SUCCINATE, UP TO 125 MG Ordered: 14-Apr-2018 Pending Karen Montes DO Instructions Name Dates Details Paresthesia : How to access health information online Indication: Paresthesia Paresthesia : How to access health information online - Detail Indication: Paresthesia Paresthesia : Patient Instructions Indication: Paresthesia BMI between 19-24,adult : How to access health information online Indication: BMI between 19-24,adult BMI between 19-24,adult : How to access health information online - Detail Indication: BMI between 19-24,adult BMI between 19-24,adult : Patient Instructions Indication: BMI between 19-24,adult [facility] : How to access health information online Indication: [facility] : How to access health information online - Detail Indication: [facility] : Patient Instructions Indication: [facility] BMI between 19-24,adult : How to access health information online Indication: BMI between 19-24,adult BMI between 19-24,adult : How to access health information online - Detail Indication: BMI between 19-24,adult BMI between 19-24,adult : Patient Instructions Indication: BMI between 19-24,adult Gastroesophageal reflux disease without esophagitis : How to access health information online Indication: Gastroesophageal reflux disease without esophagitis Gastroesophageal reflux disease without esophagitis : How to access health information online - Detail Indication: Gastroesophageal reflux disease without esophagitis Gastroesophageal reflux disease without esophagitis : Patient Instructions Indication: Gastroesophageal reflux disease without esophagitis [facility] : How to access health information online Indication: [facility] Physical [facility] : How to access health information online - Detail Indication: [facility] Physical [facility] : Patient Instructions Indication: [facility] Elevated blood-pressure reading without diagnosis of hypertension : How to access health information online Indication: Elevated blood-pressure reading without diagnosis of hypertension Elevated blood-pressure reading without diagnosis of hypertension : How to access health information online - Detail Indication: Elevated blood-pressure reading without diagnosis of hypertension Elevated blood-pressure reading without diagnosis of hypertension : Patient Instructions Indication: Elevated blood-pressure reading without diagnosis of hypertension Abdominal pain, acute, right upper quadrant : Patient Instructions Indication: Abdominal pain, acute, right upper quadrant Gastroesophageal reflux disease without esophagitis : Patient Instructions Indication: Gastroesophageal reflux disease without esophagitis CHEST PAIN : Patient Instructions Indication: CHEST PAIN Encounters Office Visit On: 03-Jun-2018 8:22 Encounter Reason: Leg Numbness - The onset of the leg numbness has been sudden and has been occurring for 2 days (had an ablasion on wednesday and noticed the numbness and tingling on ). The leg numbness is descr End: 03-Jun-2018 9:26 ibed as numbness and tingling. The leg numbness is described as being located in the right dorsal foot (starting in R foot then traveled up into R arm) and radiating to the right thigh, right groin and right foot. Note for Leg numbness: had procedure wed - endometrial ablation- yesterday am numbness in foot then traveled up leg - saw Amalia Garcia and she tested her strength and touch- whic h was normal told her thought was positional- then last night started tingling in arm- and tongue felt thick- took off patch for nausea yesterday am as felt like legs buckling and blurry vision- and paniagua zy once took that got better 2 hours later- tongue felt wierd last night- tongue feels better this am - dry mouth better leg not gone but better arm still bothersome- no robledo and no spine pain - no pain i n arm or leg- not really weak- definitley only one side- no slurred speech- not on omeprazole- and no on control no family hx of stroke-- she was on scopalamine patch-- she leaving at 10 to pick her daughter up from collegeEncounter Diagnosis: Non-smoker, BMI between 19-24,adult, Paresthesia, TIA (transient ischemic attack) [facility] Phone Encounter On: 06-May-2018 13:31 Encounter Diagnosis: Anemia End: 06-May-2018 13:33 [facility] Office Visit On: 04-May-2018 9:41 Encounter Reason: Follow up for chronic medical issues - The patient feels well with minor complaints (having some issues with period. Going every 20 days, will menstrate for 7 days and usually very heavy. Will be seeing End: 04-May-2018 11:00 Dr. yoo next week.), has good energy level (on period will be decreased) and is sleeping well. Patient has been compliant with instructions. Current medication use: no side effects, compliant with dosing regimen and considered effective by patient. Patient sleeps 7 hours per night. Nutrition: balanced diet. The medical issues the patient is following up for include All identified problems below, gastric reflux, high blood pressure (on certain occassion) and high cholesterol. Note for Follow up for chronic medical issues: gerd pretty good with using a dissolveable 20mg - was dilated twice but doing better-rash gone---weight up feels is because she able to eat - no routine palpitations- and periods heavy and frequent periods- breathing has been goodEncounter Diagnosis: Gastroesophageal reflux disease without esophagitis, Non-smoker, Need for prophylactic vaccination and inoculation against influenza (Renamed from Need for immunization against influenza), BMI between 19-24,adult, Other and unspecified hyperlipidemia (272.4), Menorrhagia, Dysphagia, Palpitations [facility] Office Visit On: 14-Apr-2018 11:55 Encounter Reason: Rash - The last clinic visit was 2 week(s) ago. Symptoms include skin blistering, skin bumps, cracking, crusting and draining. The skin rash is located on the right truncal area (most spots are on abdom End: 14-Apr-2018 14:26 en bilateral thighs spots have came up in other random places not painful very itchy). Current treatment includes topical corticosteroids.Encounter Diagnosis: Non- smoker, BMI between 19-24,adult, Rash, Contact dermatitis due to plants, except food, unspecified contact dermatitis type [facility] Office Visit On: 01-Nov-2017 10:06 Encounter Reason: Physical female exam - General health: feels well with minor complaints (still dealing with some reflux issues but has seen a specialist.), has good energy level and is sleeping well (once or twice a we End: 21-Nov-2017 21:20 ek will wake up in the middle of the night andhave a hard time getting back to sleep). The patient's appetite is normal. Nutrition: normal/adequate. Exercises 2 days per week. Sleeps on average 8 hours per night. Normal bowel and bladder habits. Safety measures include appropriate use of safety belts and home smoke detectors. There are no current emotional problems. Note for Physical exam: [facility] Physical--- went to [facility] he did esophagram- and didnt scope her- she couldnt swallow the tab- she saw Dr Ospina and he scoped her ??and had esophageal stricture that he dilated- 10/10- it is bett er than was - but still having issues tad if she rushing around - - she is taking omeprazole at least once daily is supposed to be bid ??it does help- grandma has bad and so does family- she had thyroid issue- periods every twenty days and heavy- and unpredictable and pretty heavy ??super tampon every few hours- no palpitations and urinary freq not that bad not changing not up in middle of night- not bad cramping with the periods Encounter Diagnosis: Non-smoker, BMI between 19-24,adult, [facility] EXAM, Gastroesophageal reflux disease without esophagitis, Encounter for screening mammogram for breast cancer (Renamed from Encounter for screening mammogram f or malignant neoplasm of breast), Other and unspecified hyperlipidemia (272.4), Menorrhagia, Abnormal lung function test, Chronic sinusitis, Dysphagia [facility] Phone Encounter On: 11-Aug-2017 8:01 Encounter Diagnosis: Cardiac dysrhythmia End: 11-Aug-2017 8:04 [facility] Office Visit On: 22-Feb-2017 10:09 Encounter Reason: Follow up for chronic medical issues - The patient feels well with minor complaints (reflux issues continue even though taking nexium- off and on), has good energy level and is sleeping well. Patient robledo End: 22-Feb-2017 11:17 s been compliant with instructions. Current medication use: no side effects, compliant with dosing regimen and considered effective by patient. Patient sleeps 7 hours per night. Nutrition: balanced diet . The medical issues the patient is following up for include All identified problems below, gastric reflux, high blood pressure (on certain occassion) and high cholesterol. Note for Follow up for chron ic medical issues: she is down 6 pounds her reflux still an issue- hasnt stopped her from eating but has to eat smaller amounts- more active- takes otc pepcid maybe some help- no symptoms while on hamzah and victorino notes that worse with being stress- has been walking more and she not feel sob doesnt feel need qvar, [ADDITIONAL REASON] Follow up tests - Diagnostic tests include other (hida scan). Date: (02/16/17). Encounter Diagnosis: Non-smoker , BMI between 19-24,adult, Gastroesophageal reflux disease without esophagitis, Abnormal lung function test, Other and unspecified hyperlipidemia (272.4), Urinary frequency (Renamed from Increased frequency of urination) [facility] Office Visit On: 15-Sep-2016 8:08 Encounter Reason: Follow up Meds - The patient feels well with no complaints, has good energy level and is sleeping well. Patient has been compliant with instructions. Current medication use: no side effects and complian End: 15-Sep-2016 22:50 t with dosing regimen. Patient sleeps 7 hours per night. Note for Follow up Meds: F/u on the dexilant. Pt states for the most part it has resolved most all the issues. Not having episodes daily now.-s he had to reschedule pfts was sick- she has noticed more often maybe trying to catch breath more at night- and occwith walking fast- does have seasonal allergies Encounter Diagnosis: Gastroesophageal reflux disease without esophagitis, BMI between 19-24,adult, Non-smoker, Abnormal lung function test [facility] Office Visit On: 19-Aug-2016 8:09 Encounter Reason: Physical female exam - General health: feels well with no complaints, has good energy level and is sleeping well. The patient's appetite is normal. Nutrition: normal/adequate. Exercises 0 days per week. End: 06-Sep-2016 22:29 Sleeps on average 8 hours per night. Normal bowel and bladder habits. Safety measures include appropriate use of safety belts and home smoke detectors. There are no current emotional problems. Note for Physical exam: [facility]- still getting some reflux off and on- when took nexium- not make big difference- tums will help- happens every day- tried nexium prevacid and another not recal l name and didnt feel well on had egd 2012- and stress test for same- she not exercising rotuinely just takes dog for walk- sleeping pretty good in general - gets 7-8 hours a night- energy is better- mo od been good- fredo is doing female and pap and just had not tooo long agoEncounter Diagnosis: [facility], Non-smoker, BMI between 19-24,adult, Encounter for screening mammogram for breast cancer (Renamed from Encounter for screening mammogram for malignant neoplasm of breast), Gastroesophageal reflux disease without esophagitis, Other and unspecified hyperlipidemia (272.4), Abnormal lung function test [facility] Phone Encounter On: 21-Oct-2015 9:53 Encounter Diagnosis: Abnormal liver function End: 21-Oct-2015 9:55 [facility] Office Visit On: 02-Oct-2015 20:27 Encounter Diagnosis: Abnormal liver function End: 02-Oct-2015 20:27 [facility] Office Visit On: 23-Sep-2015 18:37 Encounter Diagnosis: Abnormal liver function End: 23-Sep-2015 18:38 [facility] Phone Encounter On: 23-Sep-2015 10:01 Encounter Diagnosis: Abnormal liver function End: 23-Sep-2015 10:12 [facility] Office Visit On: 18-Sep-2015 9:22 Encounter Reason: Follow up for chronic medical issues - The patient feels well with no complaints (BP was running high on certain occassions. Recently at urgent care was running high and last fall at OB appt was told it End: 19-Sep-2015 22:08 was high. Also being treated with amoxicillin rght now for ear and sinus infection), has good energy level and is sleeping poorly. Patient has been compliant with instructions. Current medication use: no side effects, compliant with dosing regimen and considered effective by patient. Patient sleeps 7 hours per night. Nutrition: balanced diet. The medical issues the patient is following up for include All identified problems below, gastric reflux, high blood pressure (on certain occassion) and high cholesterol. Note for Follow up for chronic medical issues: - she has been battling little sinus inf ection and when went to walk in clinic- diastolic- bp was 90- she was living on dayquil but hadnt taken any for 24 hours - dad has htn- normally 2 cups of coffee in am- doesnt exercise routinely so enco urage-- and does use salt- doesnt feel the palpitations like before but will feel the heavy heartbeat- Encounter Diagnosis: Elevated blood-pressure reading without diagnosis of hypertension, Gastroesophageal reflux disease without esophagitis, Other and unspecified hyperlipidemia (272.4), Cardiac dysrhythmia, Encounter for screening mammogram for breast cancer (Renamed from Encounter for screening mammogram for malignant neoplasm of breast) [facility] Office Visit On: 16-Oct-2014 10:59 Encounter Reason: Lumps - The onset of the lumps has been sudden and has been occurring in a persistent pattern for 1 week. The course has been constant. The lumps are described as mild. Note for Lumps: left axilla are End: 16-Oct-2014 23:57 a- maybe not as obvious but stillpainful- had mammo and this was midcycle when felt it and now almost done- us scheduled tomorrow- recently cut backon caffeine and carbonation, [ADDITIONAL REASON] Abdominal pain - The onset of the pain has been gradual and has been occurring in a persistent pattern for 2 months. The course has been constant. The pain is described as a moderat e dull ache. The pain is described as being located in the right upper quadrant. The pain radiates to the back. The symptoms are aggravated by meals (1/2 to 1 hour after eating). There has been no assoc iated bloating, constipation, dark urine, diarrhea, dysuria, fever, nausea or vomiting. Note for Pain: Does a lot of belching.- no change in bowels- doesnt have gerd- seems after eats sometimes soon Encounter Diagnosis: Abdominal Pain,RUQ(789.01) , Abnormal mammogram [facility] Phone Encounter On: 15-Oct-2014 9:26 Encounter Diagnosis: Abnormal mammogram End: 15-Oct-2014 9:29 [facility] Phone Encounter On: 03-May-2013 14:14 Encounter Diagnosis: SCREENING FOR BREAST CANCER (V76.10) End: 03-May-2013 14:18 [facility] Office Visit On: 21-Nov-2012 13:35 Encounter Reason: Follow up tests - Diagnostic tests include other (hida scan). Date: (11/16/12). Current symptoms include abdominal pain (continues as before-). Note for Discuss procedure results: she took otc prilosec End: 21-Nov-2012 21:30 for couple months didnt notice difference sonot still taking- palpitations off and on-- - try to encourage continue cut caffeine back- she says still come and go- wakes up feeling well- but midday she getting epigastric pain - not doing fast food Encounter Diagnosis: Gerd (530.81), Symptom, Palpitations (785.1), Elevated Blood Pressure without diagnosis of Hypertension (796.2) [facility] Office Visit On: 14-Nov-2012 11:22 Encounter Diagnosis: CHEST PAIN (786.59) End: 14-Nov-2012 11:25 [facility] Office Visit On: 07-Nov-2012 16:00 Encounter Reason: Palpitations - Past evaluation has included nuclear stress testing (Dr. Reed). Symptoms include forceful heartbeat, irregular heartbeat and skipped beats. Onset was month(s) ago. The symptoms occur int End: 07-Nov-2012 21:36 ermittently (every day or every other day). The patient describes this as worsening (palpitations are a new symptom now. Seems ok in the mornings, gets bad as the day goes on). Associated symptoms inclu de chest pain and nausea (off and on), while associated symptoms do not include weakness, dizziness, syncope or vomiting. Note for Palpitations: Was seen by Dr. Reed in July 2012.- in jun was cesilia ng pressure in chest and jaw- and saw farida and had stress test and was normal and he told her was gerd- so stayed onprilosec- - having pressure on chest and through back- and now palpitations for last few weeks- felt like heart skipping and strong- when having them feeels like taking deeper breath but not sob- when having pain was alot of stress - grandfather sick- no cough or wheeze- feels like stil l having stress or anxiety- had no labs- tried to cut back on caffeine- some chocolate- no diet pills or stimulants- doesnt exercise but active - chest pain did wake from sleep other night radiating to back did eat spicey fatty food that night Encounter Diagnosis: CHEST PAIN (786.59), Symptom, Palpitations (785.1) [facility] Office Visit On: 11-Sep-2011 8:39 Encounter Reason: Upper Respiratory Infection (URI) - The last clinic visit was 2 week(s) ago. No changes in management were made at the last visit. Symptoms include nasal congestion, runny nose, sore throat, hoarseness End: 11-Sep-2011 8:56 and productive cough. Onset was sudden week(s) ago. The symptoms occur constantly. The patient describes this as moderate in severity and worsening. Associated symptoms do not include ear pain or ear pl ugging. The patient is not currently being treated for this problem.Encounter Diagnosis: SINUSITIS, ACUTE NOS (461.9) [facility] Office Visit On: 12-Jun-2011 8:19 Encounter Reason: Follow up tests - Diagnostic tests include other (labs- abn chol). Date: (06/02/11). Follow up visit with no current symptoms. Note for Follow up tests: really sx since- may not changed has low level fatigue- - sx for 6 mos End: 15-Jun-2011 23:16 Encounter Diagnosis: lymphadenopathy (785.3), Elevated Blood Pressure without diagnosis of Hypertension (796.2), Other and unspecified hyperlipidemia (272.4) [facility] Office Visit On: 01-Jun-2011 14:09 Encounter Reason: new patient female physical - Last seen less than 1 month ago. General health: feels well with minor complaints (recurrent lymphadenopathy in neck), has good energy level and is sleeping well. The patie End: 01-Jun-2011 22:18 nt's appetite is normal. Nutrition: normal/adequate. Exercises 0 days per week. Sleeps on average 8 hours per night. Normal bowel and bladder habits. Safety measures include appropriate use of safety be lts and home smoke detectors. There are no current emotional problems. screening, Pap smear (05/2010) and screening, visual acuity (2005)., [ADDITIONAL REASON] Lymphadenopathy - Symptoms include palpable lump and skin lesions (behind left e ar), while symptoms do not include visible lump, breast pain, abdominal pain, sore throat, fever, malaise, weight gain or weight loss. The lymphadenopathy is located in the left cervical region and in t he right cervical region. The nodes are described as firm and non-tender. Onset was gradual 6 month(s) ago. There is no known event that preceded symptom onset. The patient describes this as moderate in severity and unchanged. Symptoms are not relieved by rest, heat, ice or nonsteroidal anti-inflammatory drugs. Associated symptoms do not include breast mass or neck mass. The patient is not currently b eing treated for this problem. Note for Lymphadenopathy: Recurrent problem. Was treated with an atb for a boil behind left ear that [facility] thought was associated with the lymphadenopathy but did nt completely go away.- hasnt gotten bigger or smaller since november- recently uri but not feeling overt fatigue- little joint pain in am- no rashes- - no travel out of the country- no fever no sweats- weig ht is stable- always some sinus issues - mostly front and side glands- had a boil behind ear few weeks ago put on antiobiotic- but hasnt gone completely away- but better- she blood work 6 mos- ago- not sure what it was Encounter Diagnosis: Need for prophylactic vaccination and inoculation against influenza (V04.81), lymphadenopathy (785.3), Elevated Blood Pressure without diagnosis of Hypertension (796.2), family hx of thyroid diseae [facility] Payers Debi FORBES/STEVE VEGA; a guarantor
--- OUTSIDE RECORDS SUMMARY | 2018-08-19 14:22 | XMS RPT_ITS | Continuity of Care Document ---
:1975 Author Organization [facility] Address [address] [address] Phone Care Team Providers Name Role Phone [...] Active Sinusitis, acute (J01.90, 461.9) Status: Active Situational anxiety (F41.8, 300.09) Status: Active TIA (transient ischemic attack) (G45.9, 435.9) Status: Active Urinary frequency (Renamed from Increased frequency of urination) (R35.0, 788.41) Status: Active Medications Name Dates Details LORazepam 1 MG Oral Tablet 1 (one) Tablet uad for 0 days Quantity: 5 {Tablet} Refills: 0 Ordered:29-Jun-2018 Fast DO, Yanet AFast DO, Yanet A Start : 29-Jun-2018 Active Comments:1mg 1 hour prior and if she doesnt feel like she is relaxed with that she can take an extra 1/2 30 min prior to going in MULTIVITAMIN (PO Tab) 1 tab qd Active Omeprazole 20 MG Oral Tablet Delayed Release 1 (one) Tablet bid for 0 days Quantity: 60 {Tablet} Refills: 6 Ordered:04-May-2018 Yanet Mirza DO, DO, Debra A Start : 04-May-2018 Active Comments:please dispense dissolveable tablets AUGMENTIN, 875-125MG (Oral Tablet) 1 Tablet bid for 0 days Quantity: 20 {Tablet} Refills: 0 Ordered:07-Nov-2012 Elva Lacey Start : 11-Sep-2011 End : 07-Nov-2012 Inactive Hyoscyamine Sulfate 0.125 MG Sublingual Tablet Sublingual 1 (one) Tablet before lunch and before dinner for 0 days Quantity: 60 {Tablet} Refills: 1 Ordered:01-Nov-2017 Elva Lacey Start : 22-Feb-2017 End : 01-Nov-2017 Inactive NASONEX, 50MCG/ACT (Nasal Suspension) 2 (two) Suspension each nostril daily for 0 days Quantity: 1 {Suspension} Refills: 0 Ordered:07-Nov-2012 Elva Lacey Start : 11-Sep-2011 End : 07-Nov-2012 Inactive NexIUM 24HR Clear Minis 20 MG Oral Capsule Delayed Release 1 (one) Capsule q am for 30 days Quantity: 30 {Capsule} Refills: 0 Ordered:01-Nov-2017 Elva Lacey Start : 22-Feb-2017 End : 01-Nov-2017 Inactive PredniSONE 10 MG Oral Tablet 2 (two) Tablet bid for 2days then 1bid for 2days then 1qd for 4days for 8 days Refills: 0 Ordered:14-Apr-2018 Karen Montes DO Start : 14-Apr-2018 End : 22-Apr-2018 Inactive Comments:take with food Amoxicillin uad End : 19-Aug-2016 Discontinued Comments:started on ..10 day supply ASPIRIN LOW DOSE, 81MG (Oral [...] days Quantity: 1 {Inhaler} Refills: 0 Ordered:22-Feb-2017 Yanet Mirza DO, DO, Debra A Start : 22-Feb-2017 End : 22-Feb-2017 Discontinued Comments:rinse after use Allergies and Adverse Reactions Name Dates Details Erythromycins (Allergy) Reaction: Nausea Status: Active Past Medical History Name Dates Details Need for prophylactic vaccination and inoculation against influenza (Z23, V04.81) Status: Inactive as of 12-Jun-2011 Procedures Procedure Dates Details Mammogram, Screening Completed Sep-2014 Comments: Dr. Yoo Tonsillectomy Completed Comments: childhood Date Value Details 24-Jun-2018 Echocardiogram Complete Result: Comments: See Note; NOTES: [facility] Cardiovascular Services [address] [place] [address] Echo Complete 06/24/18 1508 MR#: [id number] Acct: [id number] Name: KARYN VEGA Rep #: [id number] : 1975 43 From: Ezequiel Layton MD Attending Dr: Yanet Mirza DO Status: REG CLI Ordering Dr: Yanet Mirza DO Date: 06/24/18 Location: [facility] Sex: F C Admitted: Reason For St udy: TIA Procedure This was a 2D Doppler, Color Flow transthoracic echocardiogram. The study was technically difficult. Exam performed in department. Left Ventricle Normal LV size. Apical false tendon noted. Left ventricular systolic function is normal. The estimated ejection fraction is 60 %. Transmitral doppler flow suggestive of impaired relaxation of left ventricle. No regional wall motion abnor malities noted. Right Ventricle Normal RV size. Normal systolic function. Atria Normal left atrium. Normal right atrium. No doppler evidence for ASD. Bubble contrast study negative for right to left interatrial shunt. Mitral Valve There is no mitral annular calcification. Normal mitral valve. Trivial mitral valve insufficiency. Tricuspid Valve Normal tricuspid valve. Trivial tricuspid valve insuf ficiency. Right ventricular systolic pressure estimated to be 27 mmHg. Aortic Valve Trisinus/trileaflet aortic valve. Normal aortic valve. Pulmonic Valve The pulmonic valve is not well visualized. G reat Vessels Normal sized aortic root. Pericardium/Pleural No pericardial effusion. Medication 22 gauge I.V. with prn adaptor inserted into right arm. Performed a rapid injection of agitated mix of 9 cc saline and 1cc air to assess for atrial septal defect. MMode/2D Measurements AND Calculations LVIDd: 3.9 cm IVSd: 0.66 cm Ao root diam: 2.8 cm LVIDs: 2.5 cm LVPWd: 0.72 cm RVDd: 2.9 cm FS: 34.2 % _ LAV(MOD-bp): 22.9 ml LA A4 area: 10.3 cm2 LA dimension(2D): 2.5 cm LAV(MOD-bp) Indexed: 15.8 ml/m2 LAV(MOD-sp2): 25.1 ml LAV(MOD-sp4): 19.3 ml RA A4 area: 9.5 cm2 Time Measurements MV dec time: 0.30 sec Doppler Measurements AND Calculati ons MV E max kedar: 86.0 cm/sec Lat Peak E' Kedar: 15.0 cm/sec Med Peak E' Kedar: 12.0 cm/sec MV A max kedar: 99.9 cm/sec E/E' lat: 5.7 E/E' med: 7.1 MV E/A: 0.86 Ao V2 max: 123.9 cm/sec LV V1 max: 118.2 cm/sec PA V2 max: 92.0 cm/sec Ao max P.1 mmHg LV V1 max P.6 mmHg TR max kedar: 242.2 cm/sec TR max P.8 mmHg Interpretation Summary The study was technically difficult. Left ventricular systolic function is normal. The estimated eje ction fraction is 60 %. Apical false tendon noted. Trivial mitral valve insufficiency. Trivial tricuspid valve insufficiency. Right ventricular systolic pressure estimated to be 27 mmHg. Transmitral dop pler flow suggestive of impaired relaxation of left ventricle Bubble contrast study negative for right to left interatrial shunt. Ordering Physician: Yanet Mirza Referring Physician: Yanet Mirza Performed By: Chana Phoenix, CARLOS, RVT 06 :31 PM 06/24/181830 Date Ezequiel Layton MD CC: Yanet Mirza DO Date Dictated: 06/24/18 1508 Date Transcribed: 06/24/181830 Hemmer Chainstitch: Signed 03-Jun-2018 Brain/Head without Contrast Result: Comments: See Note; NOTES: [facility] Imaging Services [address] [place] [address] Brain/Head without Contrast MR#: [id number] Acct: [id number] Name: IMANI VEGA ep #: [id number] : 1975 F 43 From: Wilbur King MD PCP: Yanet Mirza DO Status: REG CLI Study: Brain/Head without Contrast Date of Exam: 06/03/18 Exam# [id number] Ordering Dr: Yanet Mirza DO STUDY: CT [...] Wilbur King MD at 9:52 EST Tel [phone], Service support , CC: Yanet Mirza DO Hemmer Chainstitch: Signed 01-Jun-2018 Operative Report Result: Comments: See Note; NOTES: [facility] Medical Records Department [address] [place] [address] Operative Report 06/01/18 1500 MR#: [id number] Acct: [id number] Name: JULIAN VEGA Rep #: [id number] : 1975 43 From: Tracy Yoo MD PCP: Yanet Mirza DO Status: REG [facility] Y Location: [place] [address] Problem List (1) Menorrhagia Status: Acute Operative [...] Discharge Instruction Result: Comments: See Note; NOTES: [facility] Medical Records Department [address] [place] [address] Instructions for Home/Discharge Instructions 06/01/18 1348 MR#: [id number] Acct: [id number] Name: IMANI VEGA Rep #: [id number] : 1975 43 From: Tracy Yoo MD PCP: Yanet Mirza DO Status: REG [facility] Discharge Diet: No Restrictions Discharge Activity: May [...] Follow Up With: Tracy Yoo MD - [phone] When: two weeks for postop check up Proposed Discharge Date: 06/01/18 06/01/18 1353 <Electronically signed by Tracy Yoo MD> Date Tracy Yoo MD CC: Yanet Mirza DO 24-Nov-2017 SCREENING MAMM (CAD), BILAT Result: Comments: See Note; NOTES: [facility] Imaging Services [address] [place] [address] SCREENING MAMM (CAD), BILAT MR#: [id number] Acct: [id number] Name: IMANI VEGA ep #: [id number] : 1975 F 42 From: Clyde Young MD PCP: Yanet Mirza DO Status: REG CLI Study: SCREENING MAMM (CAD), BILAT Date of Exam: 11/24/17 Exam# [id number] Ordering Dr: Yanet Mirza DO MA MMOGRAPHY [...] delay biopsy of a clinically suspicious abnormality. [id number] Electronically Signed: Clyde Young MD at 15:58 EDT Tel , Service support , CC: Yanet Mirza DO Hemmer Chainstitch: Signed 09-Nov-2017 Transvaginal Non- Result: Comments: See Note; NOTES: [facility] Imaging Services [address] [place] [address] Transvaginal Non- MR#: [id number] Acct: [id number] Name: IMANI VEGA Rep #: [id number] : 1975 F 42 From: Cody Pereira PCP: Yanet Mirza DO Status: REG CLI Study: Transvaginal Non- Date of Exam: 11/09/17 Exam# [id number] Ordering Dr: Yanet Mirza DO ADDENDUM by Cody Pereira on 11/10/17 at 2206 US/Transvaginal Non- 11/10/172212 Date cc: Yanet Mirza DO * Signed ADDENDUM by Cody Pereira on 11/10/17 at 2205 === ADDENDUM Impression should read: Fluid within [...] Service support , CC: Yanet Mirza DO Hemmer Chainstitch: Signed 09-Nov-2017 Transvaginal Non- Result: Comments: See Note; NOTES: [facility] Imaging Services [address] [place] [address] Transvaginal Non- MR#: [id number] Acct: [id number] Name: IMANI VEGA Katie Rep #: [id number] : 1975 F 42 From: Cody Pereira PCP: Yanet Mirza DO Status: REG CLI Study: Transvaginal Non- Date of Exam: 11/09/17 Exam# [id number] Ordering Dr: Yanet Mirza DO STUDY: U [...] Service support , CC: Yanet Mirza DO Hemmer Chainstitch: Signed 09-Nov-2017 Pelvic (Non ) Result: Comments: See Note; NOTES: [facility] Imaging Services [address] [place] [address] Pelvic (Non ) MR#: [id number] Acct: [id number] Name: GARYIMANI Katie Rep #: [id number] : 1975 F 42 From: Cody Pereira PCP: Yanet Mirza DO Status: REG CLI Study: Pelvic (Non ) Date of Exam: 11/09/17 Exam# [id number] Ordering Dr: Yanet Mirza DO ADDENDUM by Rodri Pereira on 11/10/17 at 1758 US/Pelvic (Non ) 11/10/17 2213 Date cc: Yanet Mirza DO * Signed ADDENDUM by Cody Pereira on 11/10/17 at 2206 ADDENDUM Impression should read: Fluid within the endometrial canal. 1.5 cm uterine fibroid. Electronically Sign ed: Cody Pereira MD at 22:06 EDT , Service support , 11/10/172205 Date cc: Yanet Fast DO * Signed STUDY: ULTRASOUND OF E FEMALE PELVIS - COMPLETE REASON FOR [...] Service support , CC: Yanet Mirza DO Hemmer Chainstitch: Signed 09-Nov-2017 Pelvic (Non ) Result: Comments: See Note; NOTES: [facility] Imaging Services [address] [place] [address] Pelvic (Non ) MR#: [id number] Acct: [id number] Name: IMANI VEGA Katie Rep #: [id number] : 1975 F 42 From: Cody Pereira PCP: Yanet Mirza DO Status: REG CLI Study: Pelvic (Non ) Date of Exam: 11/09/17 Exam# [id number] Ordering Dr: Yanet Mirza DO STUDY: ULTRASOUN [...] Service support , CC: Yanet Mirza DO Hemmer Chainstitch: Signed 09-Nov-2017 Thyroid Result: Comments: See Note; NOTES: [facility] Imaging Services [address] [place] [address] Thyroid MR#: [id number] Acct: [id number] Name: IMANI VEGA Rep #: [id number] : 1975 F 42 From: Cody Pereira PCP: Yanet Mirza DO Status: REG CLI Study: Thyroid Date of Exam: 11/09/17 Exam# [id number] Ordering Dr: Yanet Mirza DO STUDY: THYROID [...] Service support , CC: Yanet Mirza DO Hemmer Chainstitch: Signed 17-May-2017 Esophagus Only Result: Comments: See Note; NOTES: [facility] Imaging Services [address] [place] [address] Esophagus Only MR#: [id number] Acct: [id number] Name: IMANI VEGA Rep #: [id number] : 1975 F 42 From: Wilbur King MD PCP: Yanet Mirza DO Status: REG CLI Study: Esophagus Only Date of Exam: 05/17/17 Exam# [id number] Ordering Dr: Delbert Spaulding MD STUDY: X-RAY [...] Wilbur King MD at 10:13 EDT Tel [phone], Service support [phone], CC: Yanet Mirza DO; Delbert Spaulding Hemmer Chainstitch: Signed 17-May-2017 Esophagus Only Result: Comments: See Note; NOTES: [facility] Imaging Services [address] [place] [address] Esophagus Only MR#: [id number] Acct: [id number] Name: IMANI VEGA Rep #: [id number] : 1975 F 42 From: Wilbur King MD PCP: Yanet Mirza DO Status: REG CLI Study: Esophagus Only Date of Exam: 05/17/17 Exam# [id number] Ordering Dr: Delbert Spaulding MD ADDENDUM by Wilbur King MD on 05/21/17 at 1341 RAD/Esophagus Only 05/21/17 1348 Date cc: Yanet Mirza DO; Delbert Spaulding * Signed ADDENDUM by Wilbur King MD on 05/21/17 at 1 341 ADDENDUM This is an addendum report. The patient was unable to swallow the 12 mm tablet of caty um. Electronically Signed: Wilbur King MD at 13:41 EDT Tel [phone], Service support , 05/21/17 1341 Date cc: [...] Wilbur King MD at 10:13 EDT Tel [phone], Service support , CC: Yanet Mirza DO; Delbert Spaulding Hemmer Chainstitch: Signed 26-Oct-2016 SCREENING MAMM (CAD), BILAT Result: Comments: See Note; NOTES: [facility] Imaging Services [address] [place] [address] Verdana 4d SCREENING MAMM (CAD), BILAT MR#: [id number] Acct: [id number] Name: JULIAN VEGA Rep #: [id number] : 1975 F 41 From: Wilbur King MD PCP: Yanet Mriza DO Status: REG CLI Study: SCREENING MAMM (CAD), BILAT Date of Exam: 10/26/16 Exam# [id number] Ordering Dr: Yanet Mirza DO MAMMOGRAPHY - [...] delay biopsy of a clinically suspicious abnormality. [id number] Electronically Signed: Wilbur King MD 10/26 at 10:35 EDT Tel [phone], Service support [phone], CC: Yanet Mirza DO Hemmer Chainstitch: Signed 26-Oct-2016 SCREENING MAMM (CAD), BILAT Result: Comments: See Note; NOTES: [facility] Imaging Services [address] [place] [address] Verdana 4d SCREENING MAMM (CAD), BILAT MR#: [id number] Acct: [id number] Name: JULIAN VEGA Rep #: [id number] : 1975 F 41 From: Wilbur King MD PCP: Yanet Mirza DO Status: REG CLI Study: SCREENING MAMM (CAD), BILAT Date of Exam: 10/26/16 Exam# [id number] Ordering Dr: Yanet Mirza DO MAMMOGRAPHY - [...] delay biopsy of a clinically suspicious abnormality. [id number] Electronically Signed: Wilbur King MD 10/26 at 10:35 EDT Tel [phone], Service support [phone], CC: Yanet Mirza DO Hemmer Chainstitch: Signed 09-Oct-2016 Pulmonary Function Report Comp Result: Comments: See Note; NOTES: [facility] Pulmonary Services/Neurology [address] [place] [address] Pulmonary Function Test (Comp) MR#: [id number] Acct: [id number] Name: IMANI VEGA Rep #: [id number] : 1975 41 From: Abel Guadarrama DO Referring Dr: Yanet Mirza DO Status: REG CLI Ordering Dr: Yanet Mirza DO Date: 10/07/16 Location: [facility] Sex: F C DATE OF SERVICE: 10/07 INTRODUCTION: The patient is a 41-year-old female currently being seen by Dr. Mirza that presents for pulmonary function testing secondary to a diagnosis of abnormal PFTs. [facility] reports good patient effort and reports no [...] previous pulmonary function studies available for comparison. Abel Guadarrama DO C C: e referring provider T: NTS JOB: [id number] 10/09/16 1537 <Electronically signed by Abel Guadarrama DO> Date Abel Guadarrama DO CC: Yanet Mirza DO; Sanchez D.O. Date Dictated: 10/07/16 1445 Date Transcribed: 10/07/161444 Hemmer Chainstitch: Signed 19-Aug-2016 Chest PA and Lateral Result: Comments: See Note; NOTES: [facility] Imaging Services [address] [place] [address] Verdana 4d Chest PA and Lateral MR#: [id number] Acct: [id number] Name: IMANI VEGA Rep #: [id number] : 1975 F 41 From: Lj Haney MD PCP: Yanet Mirza DO Status: REG CLI Study: Chest PA and Lateral Date of Exam: 08/19/16 Exam# [id number] Ordering Dr: Yanet Mirza DO ST UDY: [...] 7:56 EST Tel , Service sup port [phone], CC: Yanet Mirza DO Hemmer Chainstitch: Signed 24-Oct-2015 Bilat Scrn Digital AND CAD Result: Comments: See Note; NOTES: [facility] Imaging Services [address] [place] [address] Verdana 4d Bilat Scrn Digital AND CAD MR#: [id number] Acct: [id number] Name: IMANI VEGA Rep #: [id number] : 1975 F 40 From: Wilbur King MD PCP: Yanet Mirza DO Status: REG CLI Study: Bilat Scrn Digital AND CAD Date of Exam: 10/24/15 Exam# [id number] [place] [address] Dr: Yanet Mirza DO MAMMOGRAPHY - BILATERAL [...] delay biopsy of a clinically suspicious abnormality. [id number] Electronically Signed: Wilbur King MD at 11:19 EDT Tel [phone], Service support [phone], Fax CC: Yanet Mirza DO Hemmer Chainstitch: Signed 24-Sep-2015 Liver Result: Comments: See Note; NOTES: [facility] Imaging Services [address] [place] [address] Verdana 4d Liver MR#: [id number] Acct: [id number] Name: IMANI VEGA ep #: [id number] : 1975 F 40 From: Wilbur King MD PCP: Yanet Mirza DO Status: REG CLI Study: Liver Date of Exam: 09/24/15 Exam# [id number] Ordering Dr: Yanet Mirza DO STUDY: ABDOMI [...] Wilbur King MD at 10:09 EST Tel [phone], Service support [phone], CC: Yanet Mirza DO Hemmer Chainstitch: Signed 18-Sep-2015 ELECTROCARDIOGRAM, COMPLETE (ECG) (80115) Comments: ekg showed normal sinus rhythym, normal axis, no acute st/t wave changes poor r wave unchanged Result: [MEASUREMENTS ANALYSIS] Date of Test: 09/18/2015 10:28:56; Heart Rate: 72; MA Interval: 126; QRS: 82; QT Interval: 372; Corrected QT Interval (QTc): 393; P Wave [place]: 66; QRS Wave [place]: 37; T Wave [place]: 40; Blood Pressure: 100/60 [ECG DIAGNOSTIC STATEMENTS] Date of Test: 09/18/2015 10:28:56; Summary: Sinus Rhythm -Poor R-wave progression -nonspecific - consider old anterior infarct. BORDERLINE 19-Oct-2014 Gallbladder Result: Comments: See Note; NOTES: [facility] Imaging Services [address] [place] [address] Ultrasound Report MR#: [id number] Acct: [id number] Name: IMANI VEGA Rep #: [id number] : 1975 F 39 From: Wilbur King MD PCP: Yanet Mirza DO Status: REG CLI Study: Gallbladder Date of Exam: 10/19/14 Exam# [id number] Ordering Dr: Yanet Mirza DO STUDY: ABDOMI [...] Wilbur King MD at 11:30 EDT Tel [phone], Service support [phone], CC: Yanet Mirza DO Hemmer Chainstitch: Signed 17-Oct-2014 [place] Diag Digital AND CAD Result: Comments: See Note; NOTES: [facility] Imaging Services [address] [place] [address] Breast Imaging Report MR#: [id number] Acct: [id number] Name: IMANI VEGA Rep #: [id number] : 1975 F 39 From: Wilbur King MD PCP: Yanet Mirza DO Status: REG CLI Study: Unilat Lt Diag Digital AND CAD Date of Exam: 10/17/14 Exam# [id number] Ordering Dr: Vashti Mirza ra, DO MAMMOGRAPHY [...] Wilbur King MD at 12:43 EDT Tel [phone], Service sup port [phone], CC: Yanet Mirza DO Hemmer Chainstitch: Signed 17-Oct-2014 Breast Limited Unilateral Result: Comments: See Note; NOTES: [facility] Imaging Services [address] [place] [address] Ultrasound Report MR#: [id number] Acct: [id number] Name: IMANI VEGA Rep #: [id number] : 1975 F 39 From: Wilbur King MD PCP: Yanet Mirza DO Status: REG CLI Study: Breast Limited Unilateral Date of Exam: 10/17/14 Exam# [id number] Ordering Dr: Yanet Mirza DO STUDY: ULTRASOUND [...] Wilbur King MD at 12:38 EDT Tel [phone], Service support [phone], CC: Yanet Mirza DO Hemmer Chainstitch: Signed 11-Oct-2014 Bilat Scrn Digital AND CAD Result: Comments: See Note; NOTES: [facility] Imaging Services [address] [place] [address] Breast Imaging Report MR#: [id number] Acct: [id number] Name: IMANI VEGA Rep #: [id number] : 1975 F 39 From: Clyde Young MD PCP: Yanet Mirza DO Status: REG CLI Study: Bilat Scrn Digital AND CAD Date of Exam: 10/11/14 Exam# [id number] Ordering Dr: Yanet Mirza DO MAMMOGRAPHY - [...] at 17:59 EDT Tel , Service support [phone], CC: Yanet Mirza DO Hemmer Chainstitch: Signed 26-May-2013 Breast Unilateral Result: Comments: See Note; NOTES: [facility] Imaging Services [address] [place] [address] Ultrasound Report MR#: [id number] Acct: [id number] Name: IMANI VEGA Rep #: [id number] : 1975 F 38 From: Wilbur King MD PCP: Status: REG CLI Study: Breast Unilateral Date of Exam: 05/26/13 Exam# [id number] Ordering Dr: Yanet Mirza DO STUDY: ULTRASOUND [...] May 26, 2013 at 12:47:27 PM EDT [phone] Electronically Signed GP/GP If you are the referring physician and would like to consult with the radiologist who provi ded this interpretation, please contact Wilbur King M.D. at [phone]. If this radiologist is unavailable, you will be directed to another radiologist to assist. If you are a patient with a question regarding this report, please contact your referring physician directly. Professional Interpretation Provided By: [employer], Phone , These documents con tain legally [...] of these documents. CC: Yanet Mirza DO Hemmer Chainstitch: Signed 23-May-2013 Bilat Scrn Digital & CAD Result: Comments: See Note; NOTES: [facility] Imaging Services [address] [place] [address] Breast Imaging Report MR#: [id number] Acct: [id number] Name: IMANI VEGA Rep #: [id number] : 1975 F 38 From: Wilbur King MD PCP: Status: REG CLI Exam# [id number] Ordering Dr: Yanet Mirza DO MAMMOGRAPHY - [...] May 23 013 at 9:00:06 AM EDT [phone] Electronically Signed GP/GP If you are the referring physician and would like to consult with the radiologist who provided this interpretation, please contact Edu King M.D. at [phone]. If this radiologist is unavailable, you will be directed to another radiologist to assist. If you are a patient with a question regarding this report, please contact your referring physician directly. Professional Interpretation Provided By: [employer], Phone , These documents contain legally protected and confidential h ealt information intended only for the use of [...] of these documents. CC: Yanet Mirza DO Hemmer Chainstitch: Signed Family History Unknown Family Member Name [...] kg/m2 Body Surface Area Calculated 1.45 m2 20-Zbk-755348:00 Temperature 97.4 f Comments: Method: Temporal Pulse [...] kg/m2 Body Surface Area Calculated 1.45 m2 3-Hwl-331897:21 Temperature 98.3 f Pulse 92 /min Comments: [...] 1.44 m2 Results Date Description Value Details 7-Yif-314972:11 CBC W/Diff, Automated Comments: [facility] [address] [place], [place], [id number] Absolute Lymph 0.99 {X10_3/ul} (Normal) Range: 0.83-4.51 [...] 4.2-5.4 WBC 5.3 K/mm3 (Normal) Range: 4.4-11.0 0-Beb-425945:11 Comprehensive Metabolic Profil Comments: [facility] [address] [place], [address] GAP 6 (Normal) Range: 5-15 CO2 27.0 [...] Comments: Please note revised GLUCOSE reference range xzosqvjos71/02/2018. 2-Pjc-452739:11 Thyroid Stim Hormone (TSH) Comments: [facility] [address] [place], [address] TSH 0.99 {uIU/mL} (Normal) Range: 0.358-3.74 4-Ivp-325397:11 VITAMIN B-12 (CYANOCOBALAMIN) Comments: stat; [facility] [address] [place], [address] ([id number]) Vitamin B12 623 pg/mL (Normal) Range: 211-911 5-Pxu-397900:16 ,Urine Comments: [facility] [address] [place], [address] HCGUQUAL Negative {Negative} Comments: Very dilute urine specimens, as indicated by a low specificgravity, may not contain wine sales representative levels of hCG.If is still suspected, a first morning urinespecimen should be collected 48 hours later and tested. (Normal) 01-Jun-20180: ENDOMETRIAL See Note (Normal) Comments: [facility] [address] [place], [address] 00 BX/CURETTINGS Comments: Patient: IMANI VEGA : 1975 (43/F) Acct Num: [id number] Phys: Tracy Yoo MD Unit Num: [id number] Loc: [facility] Specimen: [id number] Received: 06/01/18 - 1544 Spec Typ e: ENDOM BX/C TISSUES 1 TISSUES: Endometrium, NOS GROSS DESCRIPTION Received in fixative is one container labeled with the patient's name and designated endometrial curetting s. The specimen consists of multiple fragments of hemorrhagic soft tissue mixed with mucoid tissue that in aggregate measure 3 x 2.5 x 0.3 cm. The specimen is totally submitted in one cassette. /RASHEL: luis e 06/02/18 TC:4 CPT: 21495 HEADER OPERATION: Hysteroscopy, D AND C, Nirmala PRE-OP DIAGNOSIS: Menorrhagia TISSUE SUBMITTED: Endometrial curettings MICROSCOPIC DESCRIPTION Slides are revi ewed. MICROSCOPIC DIAGNOSIS Endometrial curettings: Secretory endometrium. SJ:luis e 06/03/18 Signed Huber Keller 06/03/18 <signature on file> :37 CBC W/AUTO DIFF WBC (01428) Comments: PATIENT WAS FASTINGPERFORMED BY: [facility]6370 [facility] [id number] Immature Grans (Abs) 0.0 {x10E3/uL} (Normal) Range: [...] 3.77-5.28 WBC 6.2 {x10E3/uL} (Normal) Range: 3.4-10.8 :37 METABOLIC PANEL, COMPREHENSIVE Comments: PATIENT WAS FASTINGPERFORMED BY: [facility]CoIn[facility] WoodburyEliwqe2175 [facility] [id number] (23213) ALT (SGPT) 9 [iU]/L (Normal) Range: 0-32 [...] 6-24 Glucose 79 mg/dL (Normal) Range: 65-99 61-Ffw-394699:37 LIPID PANEL (18413) Comments: PATIENT WAS FASTINGPERFORMED BY: [facility]CoIn[facility] WoodburyRswqxb9449 [facility] [id number] LDL/HDL Ratio 1.7 {ratio} (Normal) Range: 0.0-3.2 [...] be changing to: Male Female 40 - 357014 50 - 961241 Triglycerides 101 mg/dL (Normal) Range: 0-149 Cholesterol, Total 206 mg/dL (Abnormal) Range: 100-199 0-Uaf-793978:34 METABOLIC PANEL, Comments: PATIENT NOT FASTINGPERFORMED BY: CB [facility] Dlzmjf1173 [facility] [id number] BY: BN [facility] Apmjzbicpd7248 [facility] [id number] COMPREHENSIVE (44738) ALT (SGPT) 9 [iU]/L (Normal) Range: 0-32 [...] 6-24 Glucose 88 mg/dL (Normal) Range: 65-99 0-Qtg-638640:34 TESTOSTERONE FREE (70806) Comments: PATIENT NOT FASTINGPERFORMED BY: [place] 4300170 [facility] [id number] BY: [address] [id number] Free Testosterone(Direct) 0.8 pg/mL (Normal) Range: 0.0-4.2 2-Lzc-504701:34 PROLACTIN (51054) Comments: PATIENT NOT FASTINGPERFORMED BY: [address] [id number] BY: [address] [id number] Prolactin 5.6 ng/mL (Normal) Range: 4.8-23.3 4-Owu-193522:34 PT (PROTHROMBIN TIME) Comments: PATIENT NOT FASTINGPERFORMED BY: [address] [id number] BY: [address] [id number] (84626) Prothrombin Time 10.2 {sec} (Normal) Range: 9.1-12.0 INR 1.0 (Normal) Range: 0.8-1.2 Comments: Reference interval is for non-anticoagulated patients. . Suggested INR therapeutic range for Vitamin K anta gonist therapy: Standard Dose (moderate intensity therapeutic range): 2.0 - 3.0 Higher intensity therapeutic range 2.5 - 3.5 1-Jtr-728391:34 PTT (ACTIVATED PARTIAL Comments: PATIENT NOT FASTINGPERFORMED BY: [address] [id number] BY: [address] [id number] THROMBOPLASTIN TIME) (91493) aPTT 26 {sec} (Normal) Range: 24-33 Comments: This test has not been validated for monitoring unfractionated heparintherapy. aPTT-based therapeutic ranges for unfractionated heparintherapy have not been established. For general guidelines onHeparin monitoring, refer to the [facility] Directory of Services. 5-Inp-098359:34 CBC W/AUTO DIFF WBC Comments: PATIENT NOT FASTINGPERFORMED BY: [facility]CoIn[facility] WoodburyPqdffm5778 [facility] [id number] BY: Lab[address] [id number] (05321) Immature Grans (Abs) 0.0 {x10E3/uL} (Normal) Range: [...] 3.77-5.28 WBC 6.8 {x10E3/uL} (Normal) Range: 3.4-10.8 73-Ltj-84048:34 METABOLIC PANEL, COMPREHENSIVE Comments: PATIENT NOT FASTINGPERFORMED BY: [facility]CoIn[facility] WoodburyFdfnzf7014 [facility] [id number] (08792) ALT (SGPT) 6 [iU]/L (Normal) Range: 0-32 [...] Glucose, Serum 95 mg/dL (Normal) Range: 65-99 66-Jfh-18333:34 CBC, PLATELETS & MANUAL DIFF Comments: PATIENT NOT FASTINGPERFORMED BY: [facility]CoIn[facility] WoodburyYnuqpo9912 [facility] [id number] (96537) Immature Grans (Abs) 0.0 {x10E3/uL} (Normal) Range: [...] 3.77-5.28 WBC 6.1 {x10E3/uL} (Normal) Range: 3.4-10.8 :45 PAP I-G w/rfx hrHPV Comments: CYTOLOGY INFORMATION:- CLINICAL INFORMATION:- DATE LMP/MENOPAUSE: 04/27/17 LMP- COLLECTION VIAL: Thin Prep Vial- NURSE EPIDEMIOLOGIST SOURCE: CERVICAL/ENDOCERVICAL- COLLECTION TECHNIQUE: BRUSH/SPATULASpecimen Comment: [id number] Comment: No. of containers..01 ThinPrep VialLabCorp (refer to report for specific site)refer to report for address and phone number HPV RFLX Comment (Normal) Comments: The HPV DNA reflex criteria were not met with this specimenresult therefore, no HPV testing was performed.Performed at: [address] [id number] Director: Hazel Azul MD, Phone: [phone] PAPSMR Comment (Normal) Comments: The Pap smear [...] system. PERFORM Comment (Normal) Comments: Torrey Marquis, J2Ee Application Developer (ASCP) ADEQ Comment (Normal) Comments: Satisfactory for evaluation. Endocervical and/or squamous metaplasticcells (endocervical component) are present. DIAGN Comment (Normal) Comments: NEGATIVE FOR INTRAEPITHELIAL LESION AND MALIGNANCY. 02-Osh-054699:03 Urinalysis, Office (99980) UA - LEUKOCYTE ESTERASE Negative (Normal) UA - NITRITE Negative (Normal) URINE UROBILINGN DANISHA TIMED Normal mg/dL (Normal) UA - PROTEIN Negative mg/dL (Normal) UA - PH 7 (Normal) UA - BLOOD Negative (Normal) UA - SPECIFIC GRAVITY 1.010 (Normal) UA - KETONES Negative mg/dL (Normal) UA - BILIRUBIN Negative (Normal) UA - GLUCOSE Negative (Normal) 71-Uam-120092:23 URINE SHAYAN CULTURE-IDENTIFICATN Comments: PATIENT NOT FASTINGPERFORMED BY: [employer]70 [facility] [id number] Information: SRC:UC ([id number]) Result 1 MUG (Normal) Comments: Mixed urogenital flora10,000-25,000 colony forming units per mL Urine Final report (Normal) Culture,Comprehensive 73-Wlv-43560:17 CBC W/AUTO DIFF WBC Comments: PATIENT WAS FASTINGPERFORMED BY: [place] [address] [id number] BY: eMithilaHaatlin6370 Redeem[employer]Get [facility] HospitalWorldStoresAtrium Health Lincoln [id number] ([id number]) Immature Grans (Abs) 0.0 {x10E3/uL} (Normal) Range: [...] 3.77-5.28 WBC 6.2 {x10E3/uL} (Normal) Range: 3.4-10.8 71-Nvr-72111:17 METABOLIC PANEL, Comments: PATIENT WAS FASTINGPERFORMED BY: BN [facility] [address] [id number] BY: CB [facility] Gldmiw9956 [facility] [id number] [facility] (71824) ALT (SGPT) 6 [iU]/L (Normal) Range: 0-32 [...] Glucose, Serum 76 mg/dL (Normal) Range: 65-99 27-Dgq-48212:17 LIPOPROTEIN, BLD, BY NMR Comments: PATIENT WAS FASTINGPERFORMED BY: BN [facility] [address] [id number] BY: CB [facility] Dtzlss7910 [facility] [id number] (55662) LP-IR Score <25 (Normal) Comments: INSULIN RESISTANCE MARKER <--Insulin Sensitive Insulin Resistant--> Percentile in Reference PopulationInsulin Resistance ScoreLP-IR Score Low 25th 50th 75th High <27 27 45 63 >63LP-IR Score is inaccurate if patient is non-fasting. .The LP-IR score is a laboratory developed i [facility] that has beenassociated with insulin resistance and [...] were developed and their performance characteristicsdetermined by [employer]. These assays have not been cleared by [...] 1600 - 2000 Very High > 2000 36-Iib-061572:37 HEPATIC FUNCTION PANEL Comments: PATIENT NOT FASTINGPERFORMED BY: [facility] Kqhmhy7779 [facility] [id number] Information: [id number] (54245) ALT (SGPT) 11 [iU]/L (Normal) Range: 0-32 AST (SGOT) 17 [iU]/L (Normal) Range: 0-40 Alkaline Phosphatase, S 45 [iU]/L (Normal) Range: 39-117 Bilirubin, Direct 0.12 mg/dL (Normal) Range: 0.00-0.40 Bilirubin, Total 0.4 mg/dL (Normal) Range: 0.0-1.2 Albumin, Serum 4.3 g/dL (Normal) Range: 3.5-5.5 Protein, Total, Serum 6.9 g/dL (Normal) Range: 6.0-8.5 :34 BRENT (ANTINUCLEAR ANTIBODY) Comments: PATIENT NOT FASTINGPERFORMED BY: MARK Borrero Nuyubm7863 [facility] [id number] (30289) BRENT Direct Negative (Normal) :34 ANTI-LIVER/KIDNEY MICROSOMAL Comments: PATIENT NOT FASTINGPERFORMED BY: [facility] Bbtwxb5172 [facility] [id number] ANTIBODY (69293) Thyroid Peroxidase (TPO) Ab 7 {IU/mL} (Normal) Range: 0-34 :34 ASM (ANTI SMOOTH MUSCLE Comments: PATIENT NOT FASTINGPERFORMED BY: MARK [facility]Post[facility] Yodibh0729 [facility] [id number] ANTIBODY) (62766) Actin (Smooth Muscle) Antibody 9 {Units} (Normal) Range: 0-19 Comments: Negative 0 - 19 Weak positive 20 - 30 Moderate to strong positive >30 . Actin Antibodies are found in 52-85% of patients with autoimmune hepatitis or chronic active hepatitis and in 22% of patients with primary biliary cirrhosis. :34 CERULOPLASMIN (30832) Comments: PATIENT NOT FASTINGPERFORMED BY: MARK [facility]zKind[facility] Hospital Erqmce9680 [facility] [id number] Ceruloplasmin 26.5 mg/dL (Normal) Range: 19.0-39.0 :34 FERRITIN (05978) Comments: PATIENT NOT FASTINGPERFORMED BY: [facility] Rmttyw9839 [facility] [id number] Ferritin, Serum 16 ng/mL (Normal) Range: 15-150 :34 TRANSFERRIN (18193) Comments: PATIENT NOT FASTINGPERFORMED BY: [facility] Bwxgdx9235 [facility] [id number] Transferrin 356 mg/dL (Normal) Range: 200-370 :34 ANTIMITOCHONDRIAL ANTIBODY Comments: PATIENT NOT FASTINGPERFORMED BY: [facility] Kxqwtj0105 [facility] [id number] (61099) Mitochondrial (M2) Antibody <20.0 {Units} (Normal) Range: 0.0-20.0 Comments: Negative 0.0 - 20.0 Equivocal 20.1 - 24.9 Positive >24.9 . Mitochondrial (M2) Antibodies are found in 90-96% of patients with primary biliary cirrhosis. :34 HEPATITIS PANEL (63231) Comments: PATIENT NOT FASTINGPERFORMED BY: Clean Wave TechnologiesZuni HospitalKehpcb1845 [facility] [id number] Hep C Virus Ab <0.1 {s/co_ratio} (Normal) Range: 0.0-0.9 Comments: Negative: < 0.8 Indeterminate: 0.8 - 0.9 Positive: > 0.9 . The CDC recommends that a positive HCV antibody result be followed up with a HCV Nucleic Acid Amplification test (839111). Hep B Core Ab, IgM Negative (Normal) HBsAg Screen Negative (Normal) Hep A Ab, IgM Negative (Normal) :34 HEPATIC FUNCTION PANEL Comments: PATIENT NOT FASTINGPERFORMED BY: Clean Wave TechnologiesTammy Ville 5570970 [facility] [id number] Information: [id number] (58329) ALT (SGPT) 51 [iU]/L (Abnormal) Range: 0-32 AST (SGOT) 23 [iU]/L (Normal) Range: 0-40 Alkaline Phosphatase, S 64 [iU]/L (Normal) Range: 39-117 Bilirubin, Direct 0.10 mg/dL (Normal) Range: 0.00-0.40 Bilirubin, Total 0.4 mg/dL (Normal) Range: 0.0-1.2 Albumin, Serum 4.7 g/dL (Normal) Range: 3.5-5.5 Protein, Total, Serum 7.3 g/dL (Normal) Range: 6.0-8.5 :49 Magnesium (01964) Comments: PATIENT WAS FASTINGPERFORMED BY: U [employer] Ul[address]ceo[address] [id number] Magnesium, Serum 2.1 mg/dL (Normal) Range: 1.6-2.3 :49 LIPID PANEL (72750) Comments: PATIENT WAS FASTINGPERFORMED BY: U [employer]atch That Marketing AgencyInspira Medical Center WoodburyJvxabu3985 [facility] [id number] LDL/HDL Ratio 1.8 {ratio_units} (Normal) Range: 0.0-3.2 [...] DIFF WBC Comments: PATIENT WAS FASTINGPERFORMED BY: [facility] Mikkqe3940 [facility] [id number] Information: [id number] (90139) Immature Grans (Abs) 0.0 {x10E3/uL} (Normal) Range: [...] 3.77-5.28 WBC 10.0 {x10E3/uL} (Normal) Range: 3.4-10.8 16-Qee-813545:49 METABOLIC PANEL, COMPREHENSIVE Comments: PATIENT WAS FASTINGPERFORMED BY: LabCoInsp[facility] Center WoodburyCuubap6014 [facility] [id number] (03598) ALT (SGPT) 160 [iU]/L (Abnormal) Range: 0-32 [...] Glucose, Serum 80 mg/dL (Normal) Range: 65-99 33-Crb-797285:49 TSH (93281) Comments: PATIENT WAS FASTINGPERFORMED BY: MARK [facility] Jxvglk8929 [place] [id number] TSH 0.807 {uIU/mL} (Normal) Range: 0.450-4.500 12-Uwt-93714:40 HEPATOBILLIARY IMG W/PHARM INT Radiology Report See [...] Cholecystokinin (0.02 ug/kg) was administered intravenously over r36-jmvqxa period. The post CCK gallbladder ejection fr action invxuxpjjuqq09 minutes following Cholecystokinin administration was noted to [...] cystic duct syndrome) to be low. (Uriel Purvis,Journal of Nuclear Medicine 32:1695, 1990). 2. 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 35, 1981). Signed:Arsen Hunt M.D.November 16, 2012 at 10:16:20 PM [id number] Signed RB/RB If you are the referr ing physician and would like to consult with theradiologist who provided this interpretation, please contact Rolly Ryan. at [phone]. If this radiologist is unavailable, you will bedirected to another radiologist to assist. If you are a patient with a question regarding this report, pleasecontactyour referring physician directly. Professional Interpretation Provided By: [employer], Phone , These documents contain legally protected [...] on 11/16/12 Sign by: Arsen Hunt DO 64-Jfn-07577:53 GALLBLADDER Radiology Report See Note (Normal) Comments: [...] of the right kidney. T he right lhrhaqvdmwcdhs91.1 cm. Normal renal cortex. The right cortex measures 1.1 cm. Thereisno demonstrated renal mass or cyst. There is no right hydronephrosis. IMPRESSION:Normal right upper quad rant ultrasound examination. Signed:Wilbur King M.D.November 11, 2012 at 10:17:23 AM [id number] Signed GP/GP If you are the referring physician and would like to consult with the radiologist who provided this interpretation, please contact Shaq Renteria at [phone]. If this radiologist is unavailable, youwill be directed to another radiologist to assist. If you are a patient with a question regarding this report, pleasecontactyour referring physician directly. Professional Interpretation Provided By: [employer], Phone , These docume nts contain legally [...] destructionofthese documents. Dictated on 11/11/12 0914 by Amie King MDscribed on 11/11/12 1018 by ITS IMPORTSign by Wilbur King MD on 11/11/12 1019 Sign by: Wilbur King MD 08-Nov-2012 DDIMQ 0.45 {FEUug/mL} Range: 0.22-0.48 9:29 (Normal) Comments: NORMAL D-Dimer level indicates no DVT or PE. 16-Qne-61881:31 CHEST PA AND LATERAL Radiology Report See [...] Colon D.O.November 08, 2012 at 3:51:32 PM [id number] Signed DS/DS If you are the referring p hysician and would like to consult with theradiologist who provided this interpretation, please contact Timmy Colon D.O. at [phone]. If this radiologist is unavailable, you will bedirected to [facility] radiologist to assist. If you are a patient with a question regarding this report, pleasecontactyour referring physician directly. Professional Interpretation Provided By: [employer], Phone , These documents contain legally protected [...] return or destructionofthese documents. Dictated on 11/08/12 5425 by Alejandro Goldman DOribed on 11/08/12 1553 by ITS IMPORTSign by Dereje Goldman DO on 11/08/12 1554 Sign by: Dereje Goldman DO :30 T3, FREE (TRIDOTHYRONINE) (14431) Comments: PATIENT WAS FASTINGPERFORMED BY: [facility]6370 [facility] [id number] Triiodothyronine,Free,Serum 3.5 pg/mL (Normal) Range: 2.0-4.4 :30 T4, FREE (THYROXINE) (99695) Comments: PATIENT WAS FASTINGPERFORMED BY: [facility]6370 [facility] [id number] T4,Free(Direct) 1.23 ng/dL (Normal) Range: 0.82-1.77 :30 TSH (15802) Comments: PATIENT WAS FASTINGPERFORMED BY: [facility]6370 [facility] [id number] TSH 1.470 {uIU/mL} (Normal) Range: 0.450-4.500 :30 CBC WITH MANUAL DIFF Comments: PATIENT WAS FASTINGPERFORMED BY: [facility]6370 [facility] [id number] Information: [id number] (93153) Immature Grans (Abs) 0.0 {x10E3/uL} (Normal) Range: [...] 3.77-5.28 WBC 6.1 {x10E3/uL} (Normal) Range: 4.0-10.5 00-Yoc-33281:30 METABOLIC PANEL, COMPREHENSIVE Comments: PATIENT WAS FASTINGPERFORMED BY: LabCoInsp[facility] Center WoodburyFwzlva8547 [facility] [id number] (19036) ALT (SGPT) 11 [iU]/L (Normal) Range: 0-32 [...] Glucose, Serum 82 mg/dL (Normal) Range: 65-99 42-Cln-790265:48 SOFT TISSUE NECK WITH CONTRAST Radiology Report [...] of normal. Dictated on 06/22/11 1301 by Elayne Allen MDTranscribed on 06/23/11 0917 by ITS IMPORTSign by Elayne Allen MD on 06/23/11 0918 Sign by: _ Elayne Allen MD 6-Fzm-450450:48 Microscopic Examination Comments: PATIENT WAS FASTINGPERFORMED BY: [facility]6370 [facility] [id number] Bacteria Few (Normal) Mucus Threads Present (Normal) Epithelial Cells (non renal) 0-10 {/hpf} (Normal) Range: 0 - 10 RBC None seen {/hpf} (Normal) Range: 0 - 3 WBC 0-5 {/hpf} (Normal) Range: 0 - 5 :37 SHAYAN CULTURE-OTHER (50172) Comments: PATIENT NOT FASTINGPERFORMED BY: [employer] Ttvjhe5746 [facility] [id number] Information: SRC:BRADY [id number] Result 1 RRF (Normal) Comments: Routine respiratory kaylin Upper Respiratory Culture Final report (Normal) :48 TSH (79799) Comments: PATIENT WAS FASTINGPERFORMED BY: Self-A-r-T6370 [facility] [id number] TSH 0.917 {uIU/mL} (Normal) Range: 0.450-4.500 :48 EBV Panel (38491) Comments: PATIENT WAS FASTINGPERFORMED BY: [employer]70 [facility] [id number] Interpretation: SPRCS (Normal) Comments: EBV Interpretation Chart [...] (LACTATE DEHYDROGENASE) Comments: PATIENT WAS FASTINGPERFORMED BY: PerfectPostMetropolitan Saint Louis Psychiatric CenterAqnhcw5089 [facility] [id number] (97601) LDH 150 [iU]/L (Normal) Range: 0-214 :48 RHEUMATOID FACTOR-QUANT (92293) Comments: PATIENT WAS FASTINGPERFORMED BY: [facility]PostM[facility]6370 [facility] [id number] RA Latex Turbid. 9.7 {IU/mL} (Normal) Range: 0.0-13.9 :48 SED RATE ERYTHROCYTE (47914) Comments: PATIENT WAS FASTINGPERFORMED BY: [facility]PostM[facility]6370 [facility] [id number] Sedimentation Rate-Westergren 4 mm/h (Normal) Range: 0-39 :48 C-REACTIVE PROTEIN (82522) Comments: PATIENT WAS FASTINGPERFORMED BY: [facility]PostM[facility]6370 [facility] [id number] C-Reactive Protein, Quant 0.9 mg/L (Normal) Range: 0.0-4.9 :48 BRENT (ANTINUCLEAR ANTIBODY) Comments: PATIENT WAS FASTINGPERFORMED BY: [facility]6370 [facility] [id number] (77230) BRENT Direct Negative (Normal) :48 URINALYSIS, W/ MICRO (90954) Comments: PATIENT WAS FASTINGPERFORMED BY: [facility]6370 [facility] [id number] Microscopic Examination See below: (Normal) Microscopic Examination MICRON (Normal) Comments: Microscopic follows if indicated. Nitrite, Urine Negative (Normal) Urobilinogen,Semi-Qn 0.2 mg/dL (Normal) Range: 0.0-1.9 Bilirubin Negative (Normal) Occult Blood Negative (Normal) Ketones Negative (Normal) Glucose Negative (Normal) Protein Negative (Normal) WBC Esterase Negative (Normal) Appearance Clear (Normal) Urine-Color Yellow (Normal) pH 6.5 (Normal) Range: 5.0-7.5 Specific Caldwell 1.010 (Normal) Range: 1.005-1.030 :48 LIPID PANEL (60592) Comments: PATIENT WAS FASTINGPERFORMED BY: U [employer] That Marketing AgencyInspira Medical Center WoodburyGfhpim8647 [facility] [id number] LDL/HDL Ratio 2.2 {ratio_units} (Normal) Range: 0.0-3.2 LDL Cholesterol Calc 138 mg/dL (Abnormal) Range: 0-99 HDL Cholesterol 63 mg/dL (Normal) Comments: According to ATP-III Guidelines, HDL-C >59 mg/dL is considered anegative risk factor for CHD. VLDL Cholesterol Carlos 17 mg/dL (Normal) Range: 5-40 Triglycerides 86 mg/dL (Normal) Range: 0-149 Cholesterol, Total 218 mg/dL (Abnormal) Range: 100-199 :48 CBC WITH MANUAL DIFF (16011) Comments: PATIENT WAS FASTINGPERFORMED BY: Self-A-r-T6370 [facility] [id number] Immature Grans (Abs) 0.0 {x10E3/uL} (Normal) Range: [...] 3.80-5.10 WBC 6.4 {x10E3/uL} (Normal) Range: 4.0-10.5 9-Iwx-387612:48 METABOLIC PANEL, COMPREHENSIVE Comments: PATIENT WAS FASTINGPERFORMED BY: LabCoInspira Medical Center WoodburyEqkanl9574 [facility] [id number] (14407) ALT (SGPT) 8 [iU]/L (Normal) Range: 0-40 [...] Sinusitis, acute Planned Observations METABOLIC PANEL, COMPREHENSIVE (37205)Indication: Paresthesia On: :57 Request Comments: stat CBC W/AUTO DIFF WBC (37283)Indication: Paresthesia On: 03-Jun-20188:57 Request Comments: stat TSH (21072)Indication: Paresthesia On: 03-Jun-20188:57 Request Comments: stat CBC & PLATELETS (AUTO) (56120)Indication: Anemia On: 39-Qjf-130326:32 Request LIPID PANEL (70772)Indication: Other and unspecified hyperlipidemia On: 8-Yzv-726215:47 Request HEPATIC FUNCTION PANEL (23463)Indication: Other and unspecified hyperlipidemia On: 4-Kkz-304782:47 Request HEPATIC FUNCTION PANEL (53054)Indication: Abnormal liver function On: 19-Gxl-97647:55 Request Comments: to be drawn 01/08 D-Dimer (61862)Indication: CHEST PAIN On: 03-Goi-728146:08 Request Planned Encounters Medical; [facility] Pre Wellness Exam (DF Nurse) - On: 24-Oct-2018 9:00 [facility] NURSE, DF Medical; [facility] Wellness Exam (Doctor) - On: 07-Nov-2018 8:30 [facility] Fast DO, Yanet A Fast DO, Yanet A Planned Procedures MAGNETIC RESONANCE IMAGING OF BRAIN On: 03-Jun-2018 Intent WITH AND WITHOUT CONTRAST (92910)By: Fast DO, Yanet A Fast DO, Yanet A MRA OF BRAIN, APACHE OF PACE, AND On: 03-Jun-2018 Intent CAROTID ARTERIES WITHOUT THEN WITH CONTRAST (12433)By: Fast DO, Yanet A Fast DO, Yanet A Echo CompleteBy: Fast DO, Yanet A On: 03-Jun-2018 Intent Fast DO, Yanet A CT - Brain/Head (Without On: 03-Jun-2018 Intent Contrast)By: Fast DO, Yanet A Fast Comments: stat call rsults DO, Yanet A Flu Vaccine (Quadrivalent) 55711Gc: On: 04-May-2018 Intent Fast DO, Yanet A Fast DO, Yanet A Comments: Lot: #[id number]: 01/22/19Site: L dltd, IMDose prefilled syringegiven by: Drea reviewed and ABN signed Solu- Medrol Injection, 125mg On: 14-Apr-2018 Intent (J2930)By: Karen Montes DO Comments: Lot#[id number]:Site given:right gluteal Given By: martina ABN signed Solumedrol Ultrasound - ThyroidBy: Fast DO, On: 01-Nov-2017 Intent Yanet A Fast DO, Yanet A Ultrasound - PelvisBy: Fast DO, On: 01-Nov-2017 Intent Yanet A Fast DO, Yanet A SCREENING DIGITAL TOMOSYNTHESIS OF On: 01-Nov-2017 Intent BREAST (03940)By: Fast DO, Yanet A Fast DO, Yanet A ELECTROCARDIOGRAM, COMPLETE (ECG) On: 01-Nov-2017 Intent (34256)By: Fast DO, Yanet A Fast Comments: ekg showed normal sinus rhythym, normal axis, no acute st/t wave changes DO, Yanet A ELECTROCARDIOGRAM, COMPLETE (ECG) On: 01-Sep-2016 Intent (46624)By: Fast DO, Yanet A Fast Comments: ekg showed normal sinus rhythym, normal axis, no acute st/t wave changes DO, Yanet A Radiology - Chest- PA and LatBy: On: 19-Aug-2016 Intent Fast DO, Yanet A Fast DO, Yanet A PFT - CompleteBy: Fast DO, Yanet A On: 19-Aug-2016 Intent Fast DO, Yanet A SCREENING DIGITAL TOMOSYNTHESIS OF On: 19-Aug-2016 Intent BREAST (77283)By: Fast DO, Yanet A Comments: end september Fast DO, Yanet A Ultrasound - LiverBy: Fast DO, On: 23-Sep-2015 Intent Yanet A Fast DO, Yanet A MAMMOGRAM, SCREENING, BOTH BREAST On: 18-Sep-2015 Intent (48945)By: Fast DO, Yanet A Fast DO, Yanet [...] Yanet A Fast DO, Yanet A Spirometry (33566)By: Fast DO, On: 07-Nov-2012 Intent Yanet A [...] Comments: soft tissue TD Injection , IM (27559)By: On: 01-Jun-2011 Intent Una Herron Comments: 2009 FLU VAC, SPLIT, >3 YEARS, INTRAMUSC On: 01-Jun-2011 Intent (98636)By: Una Herron Comments: refuses Planned Medications INJECTION, [...] How to access health information online Indication: [facility] [facility] Physical : How to access health information online - Detail Indication: [facility] : Patient Instructions Indication: [facility] Elevated blood-pressure reading without diagnosis [...] : Patient Instructions Indication: CHEST PAIN Encounters Phone Encounter On: 29-Jun-2018 15:02 Encounter Diagnosis: Situational anxiety End: 29-Jun-2018 15:23 [facility] Office Visit On: 03-Jun-2018 8:22 Encounter Reason: [...] [facility]: Non-smoker, BMI between 19-24,adult, Paresthesia, TIA [...] Physical exam: [facility]--- went to [facility] he did esophagram- and didnt scope her- [...] current emotional problems. Note for Physical exam: [facility]- still getting some reflux off [...] bp was 90- she was living on dayil but hadnt taken any for 24 hours [...] for Follow up tests: really sx since- november not changed has low level fatigue- - [...]
--- OUTSIDE RECORDS SUMMARY | 2018-08-19 14:23 | XMS RPT_ITS | Continuity of Care Document ---
:1975 Author Organization [facility] Address [address] [facility] [address] [place] [address] Phone Care Team Providers Name Role Phone Yanet Mirza DO Unavailable Elva Lacey Unavailable Unavailable Una Herron Unavailable Unavailable Unavailable Unavailable Problems Name Dates Details Abdominal pain, acute, right upper quadrant (R10.11, 789.01) Status: Active Abnormal liver function (K76.89, 573.9) Status: Active Abnormal lung function test (R94.2, 794.2) Status: Active Abnormal mammogram (R92.8, 793.80) Comments: us scheduled Status: Active BMI between 19-24,adult (V85.1) Status: [...] Comments: chronic stable-continue present regimen Status: Active Pregnancies () Comments: 2. Status: Active Rash (R21, 782.1) Status: Active Screening for breast cancer (Z12.39, V76.10) Status: Active Sinusitis, acute (J01.90, 461.9) Status: Active Urinary frequency (Renamed from Increased frequency of urination) (R35.0, 788.41) Status: Active Medications Name Dates Details MULTIVITAMIN (PO Tab) Active 1 tab qd Omeprazole 20 MG Oral Tablet Delayed Release 1 (one) Tablet bid for 0 days Quantity: 60 {Tablet} Refills: 6 Ordered:04-May-2018 Fast DO, Yanet AFast DO, Yanet A Start : 04-May-2018 [...] 1 {Inhaler} Refills: 0 Ordered:22-Feb-2017 Yanet Mirza DO AFYanet coughlin DO Start : 22-Feb-2017 End : 22-Feb-2017 Discontinued Comments:rinse after use Allergies and Adverse Reactions Name Dates Details Erythromycins (Allergy) Reaction: Nausea Status: Active Past Medical History Name Dates Details Need for prophylactic vaccination and inoculation against influenza (Z23, V04.81) Status: Inactive as of 12-Jun-2011 Procedures Procedure Dates Details Mammogram, Screening Completed Sep-2014 Comments: Dr. Yoo Tonsillectomy Completed Comments: childhood Date Value Details -Nov-2017 SCREENING MAMM (CAD), BILAT Result: Comments: See Note; NOTES: [facility] Imaging Services [address] [place] [address] SCREENING MAMM (CAD), BILAT MR#: [id number] Acct: [id number] Name: IMANI VEGA Katie Padron #: [id number] : 1975 F 42 From: Cldye Young MD PCP: Yanet Mirza DO Status: REG CLI Study: SCREENING MAMM (CAD), BILAT Date of Exam: 11/24/17 Exam# [id number] Ordering Dr: Yanet Mirza DO MA MMOGRAPHY [...] delay biopsy of a clinically suspicious abnormality. [id number] Electronically Signed: Clyde Young MD at 15:58 EDT Tel , Service support , CC: Yanet Mirza DO Director Safety Council: Signed 09-Nov-2017 Transvaginal Non- Result: Comments: See Note; NOTES: [facility] Imaging Services [address] [place] [address] Transvaginal Non- MR#: [id number] Acct: [id number] Name: IMANI VEGA Rep #: [id number] : 1975 F 42 From: Cody Pereira PCP: Yanet Mirza DO Status: REG CLI Study: Transvaginal Non- Date of Exam: 11/09/17 Exam# [id number] Ordering Dr: Yanet Mirza DO ADDENDUM by [...] Service support , CC: Yanet Mirza DO Director Safety Council: Signed 09-Nov-2017 Transvaginal Non- Result: Comments: See Note; NOTES: [facility] Imaging Services [address] [place], [place] [address] [place] [address] Transvaginal Non- MR#: [id number] Acct: [id number] Name: IMANI VEGA Rep #: [id number] : 1975 F 42 From: Cody Pereira PCP: Yanet Mirza DO Status: REG CLI Study: Transvaginal Non- Date of Exam: 11/09/17 Exam# [id number] Ordering Dr: Yanet Mirza DO STUDY: U [...] Service support , CC: Yanet Mirza DO Director Safety Council: Signed 09-Nov-2017 Pelvic (Non ) Result: Comments: See Note; NOTES: [facility] Imaging Services [address] [place] [address] Pelvic (Non ) MR#: [id number] Acct: [id number] Name: IMANI VEGA Rep #: [id number] : 1975 F 42 From: Cody Pereira PCP: Yanet Mirza DO Status: REG CLI Study: Pelvic (Non ) Date of Exam: 11/09/17 Exam# [id number] Ordering Dr: Yanet Mirza DO ADDENDUM by [...] Service support , CC: Yanet Mirza DO Director Safety Council: Signed 09-Nov-2017 Pelvic (Non ) Result: Comments: See Note; NOTES: [facility] Imaging Services [address] [place] [address] Pelvic (Non ) MR#: [id number] Acct: [id number] Name: IMANI VEGA Rep #: [id number] : 1975 F 42 From: Cody Pereira PCP: Yanet Mirza DO Status: REG CLI Study: Pelvic (Non ) Date of Exam: 11/09/17 Exam# [id number] Ordering Dr: Yanet Mirza DO STUDY: ULTRASOUN [...] Service support , CC: Yanet Mirza DO Director Safety Council: Signed 09-Nov-2017 Thyroid Result: Comments: See Note; NOTES: [facility] Imaging Services [address] [place] [address] Thyroid MR#: [id number] Acct: [id number] Name: GARYIMANI Rep #: [id number] : 1975 F 42 From: Cody Pereira PCP: Yanet Mirza DO Status: REG CLI Study: Thyroid Date of Exam: 11/09/17 Exam# [id number] Ordering Dr: Yanet Mirza DO STUDY: THYROID [...] Service support , CC: Yanet Mirza DO Director Safety Council: Signed 17-May-2017 Esophagus Only Result: Comments: See Note; NOTES: [facility] Imaging Services [address] [place] [address] Esophagus Only MR#: [id number] Acct: [id number] Name: IMANI VEGA Rep #: [id number] : 1975 F 42 From: Wilbur King MD PCP: Yanet Mirza DO Status: REG CLI Study: Esophagus Only Date of Exam: 05/17/17 Exam# [id number] Ordering Dr: Delbert Spaulding MD STUDY: X-RAY [...] Wilbur King MD at 10:13 EDT Tel [phone], Service support [phone], CC: Yanet Mirza DO; Delbert Spaulding Director Safety Council: Signed 17-May-2017 Esophagus Only Result: Comments: See Note; NOTES: [facility] Imaging Services [address] [place] [address] Esophagus Only MR#: [id number] Acct: [id number] Name: IMANI VEGA Rep #: [id number] : 1975 F 42 From: Wilbur King MD PCP: Yanet Mirza DO Status: REG CLI Study: Esophagus Only Date of Exam: 05/17/17 Exam# [id number] Ordering Dr: Delbert Spaulding MD ADDENDUM by Wilbur King MD on 05/21/17 at 1341 RAD/Esophagus Only 05/21/171347 Date cc: Yanet Mirza DO; Delbert Spaulding * Signed ADDENDUM by Wilbur King MD on 05/21/17 at 1 341 ADDENDUM This is an addendum report. The patient was unable to swallow the 12 mm tablet of caty um. Electronically Signed: Wilbur King MD at 13:41 EDT Tel [phone], Service support , 05/21/17 1341 Date cc: [...] Wilbur King MD at 10:13 EDT Tel [phone], Service support , CC: Yanet Mirza DO; Dlebert Spaulding Director Safety Council: Signed 26-Oct-2016 SCREENING MAMM (CAD), BILAT Result: Comments: See Note; NOTES: [facility] Imaging Services [address] [place] [address] Verdana 4d SCREENING MAMM (CAD), BILAT MR#: [id number] Acct: [id number] Name: JULIAN VEGA Rep #: [id number] : 1975 F 41 From: Wilbur King MD PCP: Yanet Mirza DO Status: REG CLI Study: SCREENING MAMM (CAD), BILAT Date of Exam: 10/26/16 Exam# [id number] Ordering Dr: Yanet Mirza DO MAMMOGRAPHY - [...] delay biopsy of a clinically suspicious abnormality. [id number] Electronically Signed: Wilbur King MD 10/26 at 10:35 EDT Tel [phone], Service support [phone], CC: Yanet Mirza DO Director Safety Council: Signed 26-Oct-2016 SCREENING MAMM (CAD), BILAT Result: Comments: See Note; NOTES: [facility] Imaging Services [address] [place] [address] Verdana 4d SCREENING MAMM (CAD), BILAT MR#: [id number] Acct: [id number] Name: JULIAN VEGA Rep #: [id number] : 1975 F 41 From: Wilbur King MD PCP: Yanet Mirza DO Status: REG CLI Study: SCREENING MAMM (CAD), BILAT Date of Exam: 10/26/16 Exam# [id number] Ordering Dr: Yanet Mirza DO MAMMOGRAPHY - [...] delay biopsy of a clinically suspicious abnormality. [id number] Electronically Signed: Wilbur King MD 10/26 at 10:35 EDT Tel [phone], Service support [phone], CC: Yanet Mirza DO Director Safety Council: Signed 09-Oct-2016 Pulmonary Function Report Comp Result: Comments: See Note; NOTES: [facility] Pulmonary Services/Neurology [address] [place] [address] Pulmonary Function Test (Comp) MR#: [id number] Acct: [id number] Name: IMANI VEGA Rep #: [id number] : 1975 41 From: Abel Guadarrama DO Referring Dr: Yanet Mirza DO Status: REG CLI Ordering Dr: Yanet Mirza DO Date: 10/07/16 Location: [facility] Sex: F C DATE OF SERVICE: 10/07 INTRODUCTION: The patient is a 41-year-old female currently being seen by Dr. Mirza that presents for pulmonary function testing secondary to a diagnosis of abnormal PFTs. [facility] reports good patient effort and reports no [...] available for comparison. DO Mahendra Coker C: Rickey yadav referring provider T: NTS JOB: [id number] 10/09/16 1537 <Electronically signed by Abel Guadarrama DO> Date Abel Guadarrama DO CC: Yanet Mirza DO; Sanchez D.O. Date Dictated: 10/07/161444 Date Transcribed: 10/07/161444 Director Safety Council: Signed 19-Aug-2016 Chest PA and Lateral Result: Comments: See Note; NOTES: [facility] Imaging Services [address] [place] [address] Verdana 4d Chest PA and Lateral MR#: [id number] Acct: [id number] Name: IMANI VEGA Rep #: [id number] : 1975 F 41 From: Lj Haney MD PCP: Yanet Mirza DO Status: REG CLI Study: Chest PA and Lateral Date of Exam: 08/19/16 Exam# [id number] Ordering Dr: Yanet Mirza DO ST UDY: [...] 7:56 EST Tel , Service sup port [phone], CC: Yanet Mirza DO Director Safety Council: Signed 24-Oct-2015 Bilat Scrn Digital AND CAD Result: Comments: See Note; NOTES: [facility] Imaging Services [address] [place] [address] Verdana 4d Bilat Scrn Digital AND CAD MR#: [id number] Acct: [id number] Name: IMANI VEGA Rep #: [id number] : 1975 F 40 From: Wilbur King MD PCP: Yanet Mirza DO Status: REG CLI Study: Bilat Scrn Digital AND CAD Date of Exam: 10/24/15 Exam# [id number] Ord ering Dr: Yanet Mirza DO MAMMOGRAPHY [...] delay biopsy of a clinically suspicious abnormality. [id number] Electronically Signed: Wilbur King MD at 11:19 EDT Tel [phone], Service support [phone], Fax CC: Yanet Mirza DO Director Safety Council: Signed 24-Sep-2015 Liver Result: Comments: See Note; NOTES: [facility] Imaging Services [address] [place] [address] Verdana 4d Liver MR#: [id number] Acct: [id number] Name: VEGAIMANI ep #: [id number] : 1975 F 40 From: Wilbur King MD PCP: Yanet Mirza DO Status: REG CLI Study: Liver Date of Exam: 09/24/15 Exam# [id number] Ordering Dr: Yanet Mirza DO STUDY: ABDOMI [...] Wilbur King MD at 10:09 EST Tel [phone], Service support [phone], CC: Yanet Mirza DO Director Safety Council: Signed 18-Sep-2015 ELECTROCARDIOGRAM, COMPLETE (ECG) (02997) Comments: ekg showed normal sinus rhythym, normal axis, no acute st/t wave changes poor r wave unchanged Result: [MEASUREMENTS ANALYSIS] Date of Test: 09/18/2015 10:28:56; Heart Rate: 72; UT Interval: 126; QRS: 82; QT Interval: 372; Corrected QT Interval (QTc): 393; P Wave [place]: 66; QRS Wave [place]: 37; T Wave [place]: 40; Blood Pressure: 100/60 [ECG DIAGNOSTIC STATEMENTS] Date of Test: 09/18/2015 10:28:56; Summary: Sinus Rhythm -Poor R-wave progression -nonspecific - consider old anterior infarct. BORDERLINE 19-Oct-2014 Gallbladder Result: Comments: See Note; NOTES: [facility] Imaging Services [address] [place] [address] Ultrasound Report MR#: [id number] Acct: [id number] Name: IMANI VEGA Rep #: [id number] : 1975 F 39 From: Wilbur King MD PCP: Yanet Mirza DO Status: REG CLI Study: Gallbladder Date of Exam: 10/19/14 Exam# [id number] Ordering Dr: Yanet Mirza DO STUDY: ABDOMI [...] Wilbur King MD at 11:30 EDT Tel [phone], Service support [phone], CC: Yanet Mirza DO Director Safety Council: Signed 17-Oct-2014 Sami Diag Digital AND CAD Result: Comments: See Note; NOTES: [facility] Imaging Services [address] [place] [address] Breast Imaging Report MR#: [id number] Acct: [id number] Name: IMANI VEGA Rep #: [id number] : 1975 F 39 From: Wilbur King MD PCP: Yanet Mirza DO Status: REG CLI Study: Unilat Lt Diag Digital AND CAD Date of Exam: 10/17/14 Exam# [id number] Ordering Dr: Vashti Mirza ra, DO MAMMOGRAPHY [...] Wilbur King MD at 12:43 EDT Tel [phone], Service sup port [phone], CC: Yanet Mirza DO Director Safety Council: Signed 17-Oct-2014 Breast Limited Unilateral Result: Comments: See Note; NOTES: [facility] Imaging Services [address] [place] [address] Ultrasound Report MR#: [id number] Acct: [id number] Name: IMANI VEGA Rep #: [id number] : 1975 F 39 From: Wilbur King MD PCP: Yanet Mirza DO Status: REG CLI Study: Breast Limited Unilateral Date of Exam: 10/17/14 Exam# [id number] Ordering Dr: Yanet Mirza DO STUDY: ULTRASOUND [...] Wilbur King MD at 12:38 EDT Tel [phone], Service support [phone], CC: Yanet Mirza DO Director Safety Council: Signed 11-Oct-2014 Bilat Scrn Digital AND CAD Result: Comments: See Note; NOTES: [facility] Imaging Services [address] [place] [address] Breast Imaging Report MR#: [id number] Acct: [id number] Name: IMANI VEGA Rep #: [id number] : 1975 F 39 From: Clyde Young MD PCP: Yanet Mirza DO Status: REG CLI Study: Bilat Scrn Digital AND CAD Date of Exam: 10/11/14 Exam# [id number] Ordering Dr: Yanet Mirza DO MAMMOGRAPHY - [...] at 17:59 EDT Tel , Service support [phone], CC: Yanet Mirza DO Director Safety Council: Signed 26-May-2013 Breast Unilateral Result: Comments: See Note; NOTES: [facility] Imaging Services [address] [place] [address] Ultrasound Report MR#: [id number] Acct: [id number] Name: IMANI VEGA Rep #: [id number] : 1975 F 38 From: Wilbur King MD PCP: Status: REG CLI Study: Breast Unilateral Date of Exam: 05/26/13 Exam# [id number] Ordering Dr: Fast, Yanet DO STUDY: ULTRASOUND HOTRENCIA AST(S) - RIGHT REASON FOR EXAM: Female, [...] May 26, 2013 at 12:47:27 PM EDT [phone] Electronically Signed GP/GP If you are the referring physician and would like to consult with the radiologist who provi ded this interpretation, please contact Wilbur King M.D. at [phone]. If this radiologist is unavailable, you will be directed to another radiologist to assist. If you are a patient with a question regarding this report, please contact your referring physician directly. Professional Interpretation Provided By: [employer], Phone , These documents con tain legally [...] of these documents. CC: Yanet Mirza DO Director Safety Council: Signed 23-May-2013 Bilat Scrn Digital & CAD Result: Comments: See Note; NOTES: [facility] Imaging Services [address] [place] [address] Breast Imaging Report MR#: [id number] Acct: [id number] Name: MIANI VEGA Rep #: [id number] : 1975 F 38 From: Wilbur King MD PCP: Status: REG CLI Exam# [id number] Ordering Dr: Yanet Mirza DO MAMMOGRAPHY - [...] May 23 013 at 9:00:06 AM EDT [phone] Electronically Signed GP/GP If you are the referring physician and would like to consult with the radiologist who provided this interpretation, please contact Edu King M.D. at [phone]. If this radiologist is unavailable, you will be directed to another radiologist to assist. If you are a patient with a question regarding this report, please contact your referring physician directly. Professional Interpretation Provided By: [employer], Phone , These documents contain legally protected [...] of these documents. CC: Yanet Mirza DO Director Safety Council: Signed Family History Unknown Family Member Name [...] smoker Vital Signs Date Test Result Details 92-Xlj-96404:47 Temperature 98 f Comments: Method: Temporal Pulse [...] kg/m2 Body Surface Area Calculated 1.45 m2 62-Zfh-500471:00 Temperature 97.4 f Comments: Method: Temporal Pulse [...] 1.44 m2 Results Date Description Value Details 3-Ojq-794283:34 METABOLIC PANEL, Comments: PATIENT NOT FASTINGPERFORMED BY: CB [facility] Gdzdcm1539 [facility] [id number] BY: BN [facility] [address] [id number] COMPREHENSIVE (60303) ALT (SGPT) 9 [iU]/L (Normal) Range: 0-32 [...] 6-24 Glucose 88 mg/dL (Normal) Range: 65-99 0-Ltn-199422:34 TESTOSTERONE FREE (57566) Comments: PATIENT NOT FASTINGPERFORMED BY: [employer] Oufnvq5144 [facility] [id number] BY: [address] [id number] Free Testosterone(Direct) 0.8 pg/mL (Normal) Range: 0.0-4.2 6-Wvr-134211:34 PROLACTIN (64426) Comments: PATIENT NOT FASTINGPERFORMED BY: [employer] Moefxd9850 [facility] [id number] BY: [address] [id number] Prolactin 5.6 ng/mL (Normal) Range: 4.8-23.3 9-Gyf-440979:34 PT (PROTHROMBIN TIME) Comments: PATIENT NOT FASTINGPERFORMED BY: RendeevooVirtua Our [facility] Lour[facility] Medical CenterNxkxcl3260 [facility] [id number] BY: [address] [id number] (61615) Prothrombin Time 10.2 {sec} (Normal) Range: 9.1-12.0 INR 1.0 (Normal) Range: 0.8-1.2 Comments: Reference interval is for non-anticoagulated patients. . Suggested INR therapeutic range for Vitamin K anta gonist therapy: Standard Dose (moderate intensity therapeutic range): 2.0 - 3.0 Higher intensity therapeutic range 2.5 - 3.5 4-Kfm-004427:34 PTT (ACTIVATED PARTIAL Comments: PATIENT NOT FASTINGPERFORMED BY: [facility] NeurosciencesRachel [place] 5580370 [facility] [id number] BY: [address] [id number] THROMBOPLASTIN TIME) (13263) aPTT 26 {sec} (Normal) Range: 24-33 Comments: This test has not been validated for monitoring unfractionated heparintherapy. aPTT-based therapeutic ranges for unfractionated heparintherapy have not been established. For general guidelines onHeparin monitoring, refer to the [facility] Directory of Services. 2-Dzr-950965:34 CBC W/AUTO DIFF WBC Comments: PATIENT NOT FASTINGPERFORMED BY: [facility]sciencesM[facility]6370 [facility] [id number] BY: [address] [id number] (15390) Immature Grans (Abs) 0.0 {x10E3/uL} (Normal) Range: [...] 3.77-5.28 WBC 6.8 {x10E3/uL} (Normal) Range: 3.4-10.8 50-Tnx-33845:34 METABOLIC PANEL, COMPREHENSIVE Comments: PATIENT NOT FASTINGPERFORMED BY: LabCoVirtua [facility] Medical CenterXgsomp2132 [facility] [id number] (60720) ALT (SGPT) 6 [iU]/L (Normal) Range: 0-32 [...] Glucose, Serum 95 mg/dL (Normal) Range: 65-99 :34 CBC, PLATELETS & MANUAL DIFF Comments: PATIENT NOT FASTINGPERFORMED BY: LabCoVirt[facility] Medical CenterAiywpv5978 [facility] [id number] (56542) Immature Grans (Abs) 0.0 {x10E3/uL} (Normal) Range: [...] 04/27/17 LMP- COLLECTION VIAL: Thin Prep Vial- GRADES 1 THROUGH 6 TEACHER SOURCE: CERVICAL/ENDOCERVICAL- COLLECTION TECHNIQUE: BRUSH/SPATULASpecimen Comment: [id number] Comment: No. of containers..01 ThinPrep VialLabCorp (refer to report for specific site)refer to report for address and phone number HPV RFLX Comment (Normal) Comments: The HPV DNA reflex criteria were not met with this specimenresult therefore, no HPV testing was performed.Performed at: [address] [id number] Director: Hazel Azul MD, Phone: [phone] PAPSMR Comment (Normal) Comments: The Pap smear [...] system. PERFORM Comment (Normal) Comments: Torrey Marquis, Switchboard Operator Assistant (ASCP) ADEQ Comment (Normal) Comments: Satisfactory for evaluation. Endocervical and/or squamous metaplasticcells (endocervical component) are present. DIAGN Comment (Normal) Comments: NEGATIVE FOR INTRAEPITHELIAL LESION AND MALIGNANCY. 66-Fsf-017895:03 Urinalysis, Office (98698) UA - LEUKOCYTE ESTERASE Negative (Normal) UA - NITRITE Negative (Normal) URINE UROBILINGN DANISHA TIMED Normal mg/dL (Normal) UA - PROTEIN Negative mg/dL (Normal) UA - PH 7 (Normal) UA - BLOOD Negative (Normal) UA - SPECIFIC GRAVITY 1.010 (Normal) UA - KETONES Negative mg/dL (Normal) UA - BILIRUBIN Negative (Normal) UA - GLUCOSE Negative (Normal) 65-Tdy-114124:23 URINE SHAYAN CULTURE-IDENTIFICATN Comments: PATIENT NOT FASTINGPERFORMED BY: [facility]CoV[facility] CenterEzvpmy5630 [facility] [id number] Information: SRC:FLORES (18856) Result 1 MUG (Normal) Comments: Mixed urogenital flora10,000-25,000 colony forming units per mL Urine Final report (Normal) Culture,Comprehensive :17 CBC W/AUTO DIFF WBC Comments: PATIENT WAS FASTINGPERFORMED BY: [facility] Ywndzowtpt7987 [facility] [id number] BY: [facility] Viyfxt0134 [facility] [id number] (14193) Immature Grans (Abs) 0.0 {x10E3/uL} (Normal) Range: [...] 3.77-5.28 WBC 6.2 {x10E3/uL} (Normal) Range: 3.4-10.8 43-Lna-12832:17 METABOLIC PANEL, Comments: PATIENT WAS FASTINGPERFORMED BY: [employer] [address] [id number] BY: [facility] PETVirtua Our Lady of Lourdes Medical CenterYiujpl7502 [facility] [id number] COMPREHENSIVE (04179) ALT (SGPT) 6 [iU]/L (Normal) Range: 0-32 [...] Glucose, Serum 76 mg/dL (Normal) Range: 65-99 24-Yuj-66250:17 LIPOPROTEIN, BLD, BY NMR Comments: PATIENT WAS FASTINGPERFORMED BY: [employer] [address] [id number] BY: [facility] PETJul[place] 9806470 [facility] [id number] (85944) LP-IR Score <25 (Normal) Comments: INSULIN RESISTANCE MARKER <--Insulin Sensitive Insulin Resistant--> Percentile in Reference PopulationInsulin Resistance ScoreLP-IR Score Low 25th 50th 75th High <27 27 45 63 >63LP-IR Score is inaccurate if patient is non-fasting. .The LP-IR score is a laboratory developed i [facility] that has beenassociated with insulin [...] were developed and their performance characteristicsdetermined by [facility] [place]. These assays have not been cleared by [...] 1600 - 2000 Very High > 2000 05-Lvc-937603:37 HEPATIC FUNCTION PANEL Comments: PATIENT NOT FASTINGPERFORMED BY: [employer] [facility] [id number] Information: 210909,T89621 (69340) ALT (SGPT) 11 [iU]/L (Normal) Range: 0-32 AST (SGOT) 17 [iU]/L (Normal) Range: 0-40 Alkaline Phosphatase, S 45 [iU]/L (Normal) Range: 39-117 Bilirubin, Direct 0.12 mg/dL (Normal) Range: 0.00-0.40 Bilirubin, Total 0.4 mg/dL (Normal) Range: 0.0-1.2 Albumin, Serum 4.3 g/dL (Normal) Range: 3.5-5.5 Protein, Total, Serum 6.9 g/dL (Normal) Range: 6.0-8.5 :34 BRENT (ANTINUCLEAR ANTIBODY) Comments: PATIENT NOT FASTINGPERFORMED BY: [employer] [facility] [id number] (32272) BRENT Direct Negative (Normal) :34 ANTI-LIVER/KIDNEY MICROSOMAL Comments: PATIENT NOT FASTINGPERFORMED BY: [employer] [facility] [id number] ANTIBODY (13947) Thyroid Peroxidase (TPO) Ab 7 {IU/mL} (Normal) Range: 0-34 :34 ASM (ANTI SMOOTH MUSCLE Comments: PATIENT NOT FASTINGPERFORMED BY: [employer] [facility] [id number] ANTIBODY) (42078) Actin (Smooth Muscle) Antibody 9 {Units} (Normal) Range: 0-19 Comments: Negative 0 - 19 Weak positive 20 - 30 Moderate to strong positive >30 . Actin Antibodies are found in 52-85% of patients with autoimmune hepatitis or chronic active hepatitis and in 22% of patients with primary biliary cirrhosis. :34 CERULOPLASMIN (46439) Comments: PATIENT NOT FASTINGPERFORMED BY: MARK Borrero Vqmkof7626 [facility] [id number] Ceruloplasmin 26.5 mg/dL (Normal) Range: 19.0-39.0 :34 FERRITIN (42562) Comments: PATIENT NOT FASTINGPERFORMED BY: [address] [id number] Ferritin, Serum 16 ng/mL (Normal) Range: 15-150 :34 TRANSFERRIN (34984) Comments: PATIENT NOT FASTINGPERFORMED BY: MARK [place]zR[place] 5580370 [facility] [id number] Transferrin 356 mg/dL (Normal) Range: 200-370 :34 ANTIMITOCHONDRIAL ANTIBODY Comments: PATIENT NOT FASTINGPERFORMED BY: [place] [id number] [facility] [id number] ([id number]) Mitochondrial (M2) Antibody <20.0 {Units} (Normal) Range: 0.0-20.0 Comments: Negative 0.0 - 20.0 Equivocal 20.1 - 24.9 Positive >24.9 . Mitochondrial (M2) Antibodies are found in 90-96% of patients with primary biliary cirrhosis. :34 HEPATITIS PANEL ([id number]) Comments: PATIENT NOT FASTINGPERFORMED BY: [place] [id number] [facility] [id number] Hep C Virus Ab <0.1 {s/co_ratio} (Normal) Range: 0.0-0.9 Comments: Negative: < 0.8 Indeterminate: 0.8 - 0.9 Positive: > 0.9 . The CDC recommends that a positive HCV antibody result be followed up with a HCV Nucleic Acid Amplification test (010791). Hep B Core Ab, IgM Negative (Normal) HBsAg Screen Negative (Normal) Hep A Ab, IgM Negative (Normal) :34 HEPATIC FUNCTION PANEL Comments: PATIENT NOT FASTINGPERFORMED BY: [place] [id number] [facility] [id number] Information: [id number] ([id number]) ALT (SGPT) 51 [iU]/L (Abnormal) Range: 0-32 AST (SGOT) 23 [iU]/L (Normal) Range: 0-40 Alkaline Phosphatase, S 64 [iU]/L (Normal) Range: 39-117 Bilirubin, Direct 0.10 mg/dL (Normal) Range: 0.00-0.40 Bilirubin, Total 0.4 mg/dL (Normal) Range: 0.0-1.2 Albumin, Serum 4.7 g/dL (Normal) Range: 3.5-5.5 Protein, Total, Serum 7.3 g/dL (Normal) Range: 6.0-8.5 :49 Magnesium (68897) Comments: PATIENT WAS FASTINGPERFORMED BY: Beegit6370 [facility] [id number] Magnesium, Serum 2.1 mg/dL (Normal) Range: 1.6-2.3 88-Gud-136115:49 LIPID PANEL (40575) Comments: PATIENT WAS FASTINGPERFORMED BY: MECLUB6370 [facility] [id number] LDL/HDL Ratio 1.8 {ratio_units} (Normal) Range: 0.0-3.2 [...] DIFF WBC Comments: PATIENT WAS FASTINGPERFORMED BY: Oculeve Ojcnia8871 [facility] [id number] Information: [id number] (70964) Immature Grans (Abs) 0.0 {x10E3/uL} (Normal) Range: [...] 3.77-5.28 WBC 10.0 {x10E3/uL} (Normal) Range: 3.4-10.8 57-Pia-478901:49 METABOLIC PANEL, COMPREHENSIVE Comments: PATIENT WAS FASTINGPERFORMED BY: LabCoJulie [place] [id number] [facility] [id number] ([id number]) ALT (SGPT) 160 [iU]/L (Abnormal) Range: 0-32 [...] Glucose, Serum 80 mg/dL (Normal) Range: 65-99 27-Ree-592745:49 TSH (67185) Comments: PATIENT WAS FASTINGPERFORMED BY: [facility]CoVirtua [facility] CenterQnfkkv2817 [facility] [id number] TSH 0.807 {uIU/mL} (Normal) Range: 0.450-4.500 66-Czu-05131:40 HEPATOBILLIARY IMG W/PHARM INT Radiology Report See [...] Cholecystokinin (0.02 ug/kg) was administered intravenously over m68-kmdswt period. The post CCK gallbladder ejection fr action zauiviiwnvwq30 minutes following Cholecystokinin administration was noted to [...] Hunt M.D.November 16, 2012 at 10:16:20 PM [id number] Signed RB/RB If you are the referr ing physician and would like to consult with theradiologist who provided this interpretation, please contact Shaq Ryan at [phone]. If this radiologist is unavailable, you will bedirected to another radiologist to assist. If you are a patient with a question regarding this report, pleasecontactyour referring physician directly. Professional Interpretation Provided By: [employer], Phone , These documents contain legally protected [...] destructionofthese documents. Dictated on 11/16/12 0624 by Gilbert GARGArsenTranscribed on 11/16/128 by ITS IMPORTSign by Gilbert GARGArsen on 11/16/12 Sign by: Arsen Hunt DO [...] of the right kidney. T he right kptkunpmzzsgzn30.1 cm. Normal renal cortex. The right cortex measures 1.1 cm. Thereisno demonstrated renal mass or cyst. There is no right hydronephrosis. IMPRESSION:Normal right upper quad rant ultrasound examination. Signed:Wilbur King M.D.November 11, 2012 at 10:17:23 AM [id number] Signed GP/GP If you are the referring physician and would like to consult with the radiologist who provided this interpretation, please contact Shaq Renteria at [phone]. If this radiologist is unavailable, youwill be directed to another radiologist to assist. If you are a patient with a question regarding this report, pleasecontactyour referring physician directly. Professional Interpretation Provided By: [employer], Phone , These docume nts contain legally [...] destructionofthese documents. Dictated on 11/11/12 0914 by Ford King MDrieleTranscribed on 11/11/12 1018 by ITS IMPORTSign by Wilbur King MD on 11/11/12 1019 Sign by: Wilbur King MD 08-Nov-2012 DDIMQ 0.45 {FEUug/mL} Range: 0.22-0.48 9:29 (Normal) Comments: NORMAL D-Dimer level indicates no DVT or PE. 61-Fdq-78672:31 CHEST PA AND LATERAL Radiology Report See [...] Colon D.O.November 08, 2012 at 3:51:32 PM [id number] Signed DS/DS If you are the referring p hysician and would like to consult with theradiologist who provided this interpretation, please contact Timmy Colon D.O. at [phone]. If this radiologist is unavailable, you will bedirected to [facility] radiologist to assist. If you are a [...] return or destructionofthese documents. Dictated on 11/08/12 3245 by Michel Goldman DOscribed on 11/08/12 1553 by ITS IMPORTSign by Dereje Goldman DO on 11/08/12 1554 Sign by: Dereje Goldman DO :30 T3, FREE (TRIDOTHYRONINE) (91096) Comments: PATIENT WAS FASTINGPERFORMED BY: Oculeve Dqyzef5823 [facility] [id number] Triiodothyronine,Free,Serum 3.5 pg/mL (Normal) Range: 2.0-4.4 :30 T4, FREE (THYROXINE) (90076) Comments: PATIENT WAS FASTINGPERFORMED BY: Oculeve Ulxhpk4082 [facility] [id number] T4,Free(Direct) 1.23 ng/dL (Normal) Range: 0.82-1.77 :30 TSH (36879) Comments: PATIENT WAS FASTINGPERFORMED BY: ASSURED INFORMATION SECURITY [facility] Irozoi8722 multiBIND biotecin [place] [id number] TSH 1.470 {uIU/mL} (Normal) Range: 0.450-4.500 :30 CBC WITH MANUAL DIFF Comments: PATIENT WAS FASTINGPERFORMED BY: Oculeve Aeaekf4435 [facility] [id number] Information: [id number] ([id number]) Immature Grans (Abs) 0.0 {x10E3/uL} (Normal) Range: [...] 3.77-5.28 WBC 6.1 {x10E3/uL} (Normal) Range: 4.0-10.5 71-Lim-05850:30 METABOLIC PANEL, COMPREHENSIVE Comments: PATIENT WAS FASTINGPERFORMED BY: [facility] CenterIgkecv2205 [facility] [id number] ([id number]) ALT (SGPT) 11 [iU]/L (Normal) Range: 0-32 [...] Glucose, Serum 82 mg/dL (Normal) Range: 65-99 22-Zmg-261350:48 SOFT TISSUE NECK WITH CONTRAST Radiology Report [...] 06/23/11917 Sign by: _ Elayne Allen MD 2-Qzn-848357:48 Microscopic Examination Comments: PATIENT WAS FASTINGPERFORMED BY: Rendeevoo Cirmia1682 [facility] [id number] Bacteria Few (Normal) Mucus Threads Present (Normal) Epithelial Cells (non renal) 0-10 {/hpf} (Normal) Range: 0 - 10 RBC None seen {/hpf} (Normal) Range: 0 - 3 WBC 0-5 {/hpf} (Normal) Range: 0 - 5 3-Jcw-246617:37 SHAYAN CULTURE-OTHER (89356) Comments: PATIENT NOT FASTINGPERFORMED BY: ASSURED INFORMATION SECURITY [facility] Vzdoth3990 [facility] [id number] Information: SRC:THRT [id number] Result 1 RRF (Normal) Comments: Routine respiratory kaylin Upper Respiratory Culture Final report (Normal) 7-Yxr-894113:48 TSH ([id number]) Comments: PATIENT WAS FASTINGPERFORMED BY: ASSURED INFORMATION SECURITY [facility] Kikpqb3110 [facility] [id number] TSH 0.917 {uIU/mL} (Normal) Range: 0.450-4.500 0-Ybu-834488:48 EBV Panel (55931) Comments: PATIENT WAS FASTINGPERFORMED BY: [facility] Jtvqex3637 [facility] [id number] Interpretation: SPRCS (Normal) Comments: EBV Interpretation Chart [...] <0.9 Equivocal 0.9 - 1.0 Positive >1.0 4-Eoo-867686:48 LDH (LD) (LACTATE DEHYDROGENASE) Comments: PATIENT WAS FASTINGPERFORMED BY: [facility] [id number] (03077) LDH 150 [iU]/L (Normal) Range: 0-214 6-Ywp-271536:48 RHEUMATOID FACTOR-QUANT (36054) Comments: PATIENT WAS FASTINGPERFORMED BY: Cubeacon70 [facility] [id number] RA Latex Turbid. 9.7 {IU/mL} (Normal) Range: 0.0-13.9 :48 SED RATE ERYTHROCYTE (09355) Comments: PATIENT WAS FASTINGPERFORMED BY: [facility] [id number] Sedimentation Rate-Westergren 4 mm/h (Normal) Range: 0-39 6-Aew-352997:48 C-REACTIVE PROTEIN (77800) Comments: PATIENT WAS FASTINGPERFORMED BY: [employer] [facility] [id number] C-Reactive Protein, Quant 0.9 mg/L (Normal) Range: 0.0-4.9 :48 BRENT (ANTINUCLEAR ANTIBODY) Comments: PATIENT WAS FASTINGPERFORMED BY: [place] [id number] [facility] [id number] (74903) BRENT Direct Negative (Normal) :48 URINALYSIS, W/ MICRO (99269) Comments: PATIENT WAS FASTINGPERFORMED BY: [place] [id number] [facility] [id number] Microscopic Examination See below: (Normal) Microscopic Examination MICRON (Normal) Comments: Microscopic follows if indicated. Nitrite, Urine Negative (Normal) Urobilinogen,Semi-Qn 0.2 mg/dL (Normal) Range: 0.0-1.9 Bilirubin Negative (Normal) Occult Blood Negative (Normal) Ketones Negative (Normal) Glucose Negative (Normal) Protein Negative (Normal) WBC Esterase Negative (Normal) Appearance Clear (Normal) Urine-Color Yellow (Normal) pH 6.5 (Normal) Range: 5.0-7.5 Specific [place] 1.010 (Normal) Range: 1.005-1.030 :48 LIPID PANEL (00178) Comments: PATIENT WAS FASTINGPERFORMED BY: [facility]6370 [facility] [id number] LDL/HDL Ratio 2.2 {ratio_units} (Normal) Range: 0.0-3.2 LDL Cholesterol Calc 138 mg/dL (Abnormal) Range: 0-99 HDL Cholesterol 63 mg/dL (Normal) Comments: According to ATP-III Guidelines, HDL-C >59 mg/dL is considered anegative risk factor for CHD. VLDL Cholesterol Carlos 17 mg/dL (Normal) Range: 5-40 Triglycerides 86 mg/dL (Normal) Range: 0-149 Cholesterol, Total 218 mg/dL (Abnormal) Range: 100-199 :48 CBC WITH MANUAL DIFF (72972) Comments: PATIENT WAS FASTINGPERFORMED BY: [place] [id number] [facility] [id number] Immature Grans (Abs) 0.0 {x10E3/uL} (Normal) Range: [...] 3.80-5.10 WBC 6.4 {x10E3/uL} (Normal) Range: 4.0-10.5 4-Zci-975313:48 METABOLIC PANEL, COMPREHENSIVE Comments: PATIENT WAS FASTINGPERFORMED BY: [facility] CenterDrbwxu2921 [facility] [id number] ([id number]) ALT (SGPT) 8 [iU]/L (Normal) Range: 0-40 [...] Plan of Care Name Dates Details Instructions Rash : Solu Medrol Injection/ Education Indication: [...] - Female Indication: Sinusitis, acute Planned Observations CBC W/AUTO DIFF WBC (55700)Indication: Menorrhagia On: 90-Led-081467:03 Request METABOLIC PANEL, COMPREHENSIVE (65131)Indication: Gastroesophageal reflux disease without esophagitis On: 04-Lev-230243:03 Request LIPID PANEL (56899)Indication: Other and unspecified hyperlipidemia On: 61-Ynz-330955:03 Request LIPID PANEL (66207)Indication: Other and unspecified hyperlipidemia On: 2-Wtq-229640:47 Request HEPATIC FUNCTION PANEL (36610)Indication: Other and unspecified hyperlipidemia On: 4-Xro-532951:47 Request HEPATIC FUNCTION PANEL (28854)Indication: Abnormal liver function On: 74-Aah-40835:55 Request Comments: to be drawn 01/08 D-Dimer (49402)Indication: CHEST PAIN On: 90-Tlc-253476:08 Request Planned Encounters Medical; [facility]ness Exam (DF Nurse) - On: 24-Oct-2018 9:00 [facility] NURSE, DF Medical; [facility] Exam (Doctor) - On: 07-Nov-2018 8:30 [facility] Fast DO, Yanet A Fast DO, Yanet A Planned Procedures Flu Vaccine (Quadrivalent) 60976Qg: On: 04-May-2018 Intent Fast DO, Yanet A Fast DO, Yanet A Comments: Lot: [id number]: 01/22/19Site: L dltd, IMDose prefilled syringegiven by: Drea reviewed and ABN signed Solu- Medrol Injection, 125mg On: 14-Apr-2018 Intent (J2930)By: Karen Montes DO Comments: Lot#[id number]:Site given:right gluteal Given By: martina ABN signed Solumedrol Ultrasound - ThyroidBy: Fast DO, On: 01-Nov-2017 Intent Yanet A Fast DO, Yanet A Ultrasound - PelvisBy: Fast DO, On: 01-Nov-2017 Intent Yanet A Fast DO, Yanet A SCREENING DIGITAL TOMOSYNTHESIS OF On: 01-Nov-2017 Intent BREAST (59203)By: Fast DO, Yanet A Fast DO, Yanet A ELECTROCARDIOGRAM, COMPLETE (ECG) On: 01-Nov-2017 Intent (05122)By: Fast DO, Yanet A Fast DO, Comments: ekg showed normal sinus rhythym, normal axis, no acute st/t wave changes Yanet A ELECTROCARDIOGRAM, COMPLETE (ECG) On: 01-Sep-2016 Intent (59621)By: Fast DO, Yanet A Fast DO, Comments: ekg showed normal sinus rhythym, normal axis, no acute st/t wave changes Yanet A Radiology - Chest- PA and LatBy: On: 19-Aug-2016 Intent Fast DO, Yanet A Fast DO, Yanet A PFT - CompleteBy: Fast DO, Yanet A On: 19-Aug-2016 Intent Fast DO, Yanet A SCREENING DIGITAL TOMOSYNTHESIS OF On: 19-Aug-2016 Intent BREAST (65205)By: Fast DO, Yanet A Comments: end september Fast DO, Yanet A Ultrasound - LiverBy: Fast DO, Yanet On: 23-Sep-2015 Intent A Fast DO, Yanet A MAMMOGRAM, SCREENING, BOTH BREAST On: 18-Sep-2015 Intent (86022)By: Fast DO, Yanet A Fast DO, Yanet A Ultrasound - GallbladderBy: Fast DO, On: 16-Oct-2014 Intent Yanet A Fast DO, Yanet A Breast Ultrasound - LeftBy: Fast DO, On: 15-Oct-2014 Intent Yanet A Fast DO, Yanet A Breast Screening - BilateralBy: Fast On: 03-May-2013 Intent DO, Yanet A Fast DO, Yanet A Nuclear Medicine - HIDA w/CPKBy: On: 14-Nov-2012 Intent Fast DO, Yanet A Fast DO, Yanet A Spirometry (14504)By: Fast DO, On: 07-Nov-2012 Intent Yanet A Fast DO, Yanet A Comments: good effort and curve normal Ultrasound - GallbladderBy: Fast DO, On: 07-Nov-2012 Intent Yanet A Fast DO, Yanet A Holter Monitor 24 hrsBy: Fast DO, On: 07-Nov-2012 Intent Yanet A Fast DO, Yanet A Radiology - Chest- PA and LatBy: On: 07-Nov-2012 Intent Fast DO, Yanet A Fast DO, Yanet A CT - NeckBy: Fast DO, Yanet A Fast On: 12-Jun-2011 Intent DO, Yanet A Comments: soft tissue TD Injection , IM (36207)By: On: 01-Jun-2011 Intent Una Herron Comments: 2009 FLU VAC, SPLIT, >3 YEARS, INTRAMUSC On: 01-Jun-2011 Intent (71038)By: Una Herron Comments: refuses Planned Medications INJECTION, METHYLPREDNISOLONE SODIUM SUCCINATE, UP TO 125 MG Ordered: 14-Apr-2018 Pending Karen Montes DO Instructions Name Dates Details BMI between 19-24,adult : How to access [...] Indication: CHEST PAIN Encounters Office Visit On: 04-May-2018 9:41 Encounter Reason: [...] Physical exam: [facility] Physical--- went to [facility] he did esophagram- and didnt scope [...] periods Encounter Diagnosis: Non-smoker, BMI between 19-24,adult, [facility] WELLNESS EXAM, Gastroesophageal reflux disease without esophagitis, [...] current emotional problems. Note for Physical exam: [facility] Physical- still getting some reflux off [...] Reed in July 2012.- in jun was havi ng pressure in chest and jaw- and [...]
--- OUTSIDE RECORDS SUMMARY | 2018-08-19 14:24 | XMS RPT_ITS ---
:1975 Author Organization [facility] Care Team Providers Name Role Phone Fast DO, Yaent A Attending Unavailable Fast DO, Yanet A Referring Unavailable Fast DO, Yanet A Consulting Unavailable Fast, Yanet Attending Unavailable Fast, Yanet Referring Unavailable Fast, Yanet Primary Care Unavailable Fast, Yanet Attending Unavailable Fast, Yanet Primary Care Unavailable Benekos, Tracy Attending Unavailable Benekos, Tracy Referring Unavailable Fast, Yanet Primary Care Unavailable Fast, Yanet Attending Unavailable Fast, Yanet Referring Unavailable Fast, Yanet Primary Care Unavailable Fast, Yanet Attending Unavailable Fast, Yanet Referring Unavailable Fast, Yanet Primary Care Unavailable PROBLEMS PROBLEMS DATE TYPE CONDITION / CODE ATTENDING STATUS SOURCE 06/03/2018 Unknown R20.2 - Fast, Yanet Active [place] Paresthesia of Community skin / Hospital R20.2(ICD-10) Repository 06/01/2018 Unknown R10.9 - OzkosTracy Active [place] Unspecified Community abdominal pain / Hospital R10.9(ICD-10) Repository 11/24/2017 Unknown Z12.31 - Encounter Fast, Yanet Active [place] for screening Community mammogram for Hospital malignant neoplasm Repository of breast / Z12.31(ICD-10) 11/09/2017 Unknown N92.0 - Excessive Fast, Yanet Active [place] and frequent Community menstruation with Hospital regular cycle / Repository N92.0(ICD-10) 11/09/2017 Unknown R13.10 - Fast, Yanet Active [place] Dysphagia, Community unspecified / Hospital R13.10(ICD-10) Repository PROCEDURES PROCEDURES No Procedure Records FoundRESULTS RESULTS ECHOCARDIOGRAM COMPLETE Observed: 06/24/2018 Status: F Source: [place] 6:31 PM [facility] REPOSITORY [facility] Cardiovascular Services [address] [place] [address] Echo Complete 06/24/18 1508 MR#: [id number] Acct: [id number] Name: IMANI VEGA Rep #: [id number] : 1975 43 From: Ezequiel Layton MD Attending Dr: Yanet Mirza DO Status: REG CLI Ordering Dr: Yanet Mirza DO Date: 06/24/18 Location: [facility] Sex: F C Admitted: Reason For Study: TIA Procedure This was a 2D Doppler, Color Flow transthoracic echocardiogram. The study was technically difficult. Exam performed in department. Left Ventricle Normal LV size. Apical false tendon noted. Left ventricular systolic function is normal. The estimated ejection fraction is 60 %. Transmitral doppler flow suggestive of impaired relaxation of left ventricle. No regional wall motion abnormalities noted. Right Ventricle Normal RV size. Normal systolic function. Atria Normal left atrium. Normal right atrium. No doppler evidence for ASD. Bubble contrast study negative for right to left interatrial shunt. Mitral Valve There is no mitral annular calcification. Normal mitral valve. Trivial mitral valve insufficiency. Tricuspid Valve Normal tricuspid valve. Trivial tricuspid valve insufficiency. Right ventricular systolic pressure estimated to be 27 mmHg. Aortic Valve Trisinus/trileaflet aortic valve. Normal aortic valve. Pulmonic Valve The pulmonic valve is not well visualized. Great Vessels Normal sized aortic root. Pericardium/Pleural No [...] cm RVDd: 2.9 cm FS: 34.2 % LAV(MOD-bp): 22.9 ml LA A4 area: 10.3 cm2 LA dimension(2D): 2.5 cm LAV(MOD-bp) Indexed: 15.8 ml/m2 LAV(MOD-sp2): 25.1 ml LAV(MOD-sp4): 19.3 ml RA A4 area: 9.5 cm2 Time Measurements MV dec time: 0.30 sec Doppler Measurements AND Calculations MV E max angel: 86.0 cm/sec Lat Peak E' Angel: 15.0 cm/sec Med Peak E' Angel: 12.0 cm/sec MV A max angel: 99.9 cm/sec E/E' lat: 5.7 E/E' med: 7.1 MV E/A: 0.86 Ao V2 max: 123.9 cm/sec LV V1 max: 118.2 cm/sec PA V2 max: 92.0 cm/sec Ao max P.1 mmHg LV V1 max P.6 mmHg TR max angel: 242.2 cm/sec TR max P.8 mmHg Interpretation Summary The study was technically difficult. Left ventricular systolic function is normal. The estimated ejection fraction is 60 %. Apical false tendon noted. Trivial mitral valve insufficiency. Trivial tricuspid valve insufficiency. Right ventricular systolic pressure estimated to be 27 mmHg. Transmitral doppler flow suggestive of impaired relaxation of left ventricle Bubble contrast study negative for right to left interatrial shunt. Ordering Physician: Yanet Mirza Referring Physician: Yanet Mirza Performed By: Chana Phoenix, CARLOS, RVT 06/24/181830 Date Ezequiel Layton MD CC: Yanet Mirza DO Date Dictated: 06/24/18 1508 Date Transcribed: 06/24/181830 Relay Tester: Signed CBC W/DIFF, AUTOMATED Collected: 06/03/2018 Status: F Source: [place] 10:11 AM [facility] REPOSITORY TYPE CODE TESTS RESULT OUT OF RANGE REFERENCE UNITS LAB L100.1000 4.4-11.0 K/mm3 Normal WBC 5.3 LAB L100.1200 4.2-5.4 M/mm3 Normal RBC 4.47 LAB L100.1300 12.0-15.0 g/dl Low HGB 11.7 LAB L100.1400 37-47 % Low HCT 36.7 LAB L100.1500 81-99 fL Normal MCV 82.1 LAB L100.1600 27.0-32.0 pg Low MCH 26.2 LAB L100.1700 32-36 g/gl Low MCHC 31.9 LAB L100.1810 11.6-14.6 % High RDW CV 16.4 LAB L100.1820 35.1-43.9 fl High RDW SD 49.8 LAB L100.1900 150-450 K/mm3 Normal PLT 192 LAB L100.2000 6.2-12.0 fl Normal MPV 11.4 LAB L100.2100 47-70 % Normal NEUT% 65.9 LAB L100.2200 19-41 % Low LY% 18.9 LAB L100.2300 0-10 % High MONO% 13.1 LAB L100.2400 0-5 % Normal EO% 1.9 LAB L100.2500 0-1 % Normal BASO% 0.2 LAB L100.2550 0.0-0.9 % Normal IM GRAN % 0.000 Result Comment: IG% - Immature Granulocytes (promyelocytes, myelocytes and metamyelocytes) > 1% indicates that a LEFT SHIFT is Present. LAB L100.2620 2.0-7.7 X10 3/uL Normal Absolute Neut 3.5 LAB L100.2720 0.83-4.51 X10 3/ul Normal Absolute Lymph 0.99 Performed By: #### L100.0100, L503.0105, L500.4050, L501.9520 #### [facility] [address] [place], [place], [address] VITAMIN B12 Collected: 06/03/2018 Status: F Source: [place] 10:11 AM [facility] REPOSITORY TYPE CODE TESTS RESULT OUT OF RANGE REFERENCE UNITS LAB L503.0105 211-911 pg/mL Normal Vitamin B12 623 Performed By: #### L100.0100, L503.0105, L500.4050, L501.9520 #### [facility] [address] [place], [address] COMPREHENSIVE METABOLIC Collected: 06/03/2018 Status: F Source: [place] URENA 10:11 AM [facility] REPOSITORY TYPE CODE TESTS RESULT OUT OF RANGE REFERENCE UNITS LAB L501.0100 74-106 mg/dL Low GLU 66 Result Comment: Please note revised GLUCOSE reference range effective 2017. LAB L501.1000 7-18 mg/dL Normal BUN 11 LAB L501.1100 0.55-1.02 mg/dL Normal CREAT,SERUM 0.83 Result Comment: The validity of the calculated GFR AND GFRAA in patients over 70 years has not been determined. Clinical correlation is essential. LAB L501.1110 >60 mL/min Normal EST GFR 79 Result Comment: Non- GFR Calc LAB L501.1115 >60 mL/min Normal EST GFR - AA 96 Result Comment: GFR Calc LAB L501.1300 10-20 RATIO Normal BUN/CRE 13.3 LAB L501.1500 6.4-8.2 g/dL T Normal PROT 7.2 LAB L501.1800 3.2-5.0 g/dL Normal ALB 3.8 LAB L501.1950 2.2-4.2 g/dL Normal GLOB 3.4 LAB L501.2000 0.9-2.4 RATIO Normal A/G 1.1 LAB L501.2200 8.5-10.1 mg/dL CA Normal 8.8 LAB L501.4100 15-37 U/L Normal AST 19 LAB L501.4305 45-117 U/L Normal ALK P 47 LAB L501.4405 13-56 U/L Normal ALT 16 LAB L501.4600 0.20-1.00 mg/dL T Normal BILI 0.50 LAB L501.5300 136-145 mmol/L NA Normal 139 LAB L501.5600 3.5-5.1 mmol/L K Normal 4.3 LAB L501.5900 98-107 mmol/L CL Normal 106 LAB L501.6100 21.0-32.0 mmol/L Normal CO2 27.0 LAB L501.6200 5-15 Normal GAP 6 Performed By: #### L100.0100, L503.0105, L500.4050, L501.9520 #### [facility] [address] [place], [address] THYROID STIM HORMONE Collected: 06/03/2018 Status: F Source: [place] (TSH) 10:11 AM [facility] REPOSITORY TYPE CODE TESTS RESULT OUT OF RANGE REFERENCE UNITS LAB L501.9520 0.358-3.74 uIU/mL Normal TSH 0.99 Performed By: #### L100.0100, L503.0105, L500.4050, L501.9520 #### [place] [facility] [address] [place], [address] BRAIN/HEAD WITHOUT Observed: 06/03/2018 Status: F Source: [place] CONTRAST 9:21 AM [facility] REPOSITORY [facility] Imaging Services [address] [place] [address] Brain/Head without Contrast MR#: [id number] Acct: [id number] Name: IMANI VEGA Katie Rep #: [id number] : 1975 F 43 From: Wilbur King MD PCP: Yanet Mirza DO Status: REG CLI Study: Brain/Head without Contrast Date of Exam: 06/03/18 Exam# [id number] Ordering Dr: Yanet Mirza DO STUDY: CT BRAIN WITHOUT CONTRAST REASON FOR EXAM: Female, 43 years old. Paresthesia of the right arm and right lower extremity. RADIATION DOSAGE (If Supplied By Facility): CTDIvol = ( 44.99 ) mGy, DLP = ( 745.49 ) mGycm TECHNIQUE: Transaxial CT imaging of the brain was performed without administration of intravenous contrast material. Individualized dose optimization techniques were used for this CT. COMPARISON: None. FINDINGS: Normal soft tissue structures. Normal calvarium. Normal size ventricles and extra-axial spaces for the patient's age. Normal white matter tracts of the cerebral hemispheres. Normal basal ganglia and thalami. Normal brainstem. Normal cerebellum. There is no intracranial hemorrhage. There are no findings of an acute ischemic infarction. Normal visualized paranasal sinuses. CT/Brain/Head without Contrast IMPRESSION: Normal unenhanced CT scan of the brain. Electronically Signed: Wilbur King MD at 9:52 EST Tel [phone], Service support , CC: Yanet Mirza DO Relay Tester: Signed OPERATIVE REPORT Observed: 06/01/2018 Status: F Source: [place] 3:05 PM [facility] REPOSITORY [facility] Medical Records Department [address] [place] [address] Operative Report 06/01/18 1500 MR#: [id number] Acct: [id number] Name: IMANI VEGA Rep #: [id number] : 1975 43 From: Tracy Sylvester MD PCP: Yanet Mirza DO Status: REG [facility] Y Location: [place] [address] Problem List (1) Menorrhagia Status: Acute Operative Report Date of Procedure: 06/01/18 PROCEDURE: Hysteroscopy, Dilation and curettage, Nirmala endometrial ablation Preoperative Diagnosis: Excessive bleeding in premenopause, menorrhagia Postop diagnosis: Excessive bleeding in premenopause, menorrhagia Anesthesia: MAC IV sedation, Dr Roach Paracervical block of 10cc 1% lidocaine with 1:100,000 epinephrine Surgeon: [place] Sylvester MD EBL: Minimal for case Drains: Red Rivera, minimal clear yellow urine Complications: none Fluids: replacement Findings: normal appearing cervix Normal appearing , fluffy endometrium. Tubal ostia visualized bilaterally. Narrative account After the R,B,Alternatives of the procedure were reviewed with the patient and her mother, informed consent was obtained. The patient was taken to the operating room with an IV running and placed in dorsal supine position on the operating table. She was given MAC IV sedation . and repositioned to the dorsal lithotomy position and prepped and draped in the usual sterile fashion. A graves speculum was placed into the vagina and the cervix was brought into view. The cervix was parous appearing. A 10cc paracervical block of 1% lidocaine with 1:100,000 epinephrine was instilled. A single toothed tenaculum was applied to the anterior lip of the cervix. The cervix was then sequentially dilated to allow admission of the hysteroscope into the endometrial cavity. The hysteroscopy was performed with findings noted as above. Photos were taken. [...] The procedure was terminated. The speculum was removed. The patient was returned to dorsal supine position and awakened from IV sedation, and transferred to the recovery room bed in stable condition after tolerating the procedure well. Sponge, lap, needle and instrument counts were correct x two. Medications given intraoperatively included 10 cc of 1% lidocaine with 1:100,000 epinephrine, and Toradol 30 mg IV x one. For a complete listing of the medications given intraoperatively, please see the anesthesia record. 06/01/18 1505 <Electronically signed by [place] Sylvester MD> Date Tracy Sylvester MD CC: Yanet Mirza DO; Tracy Sylvester MD Signed DISCHARGE INSTRUCTION Observed: 06/01/2018 Status: F Source: [place] 1:53 PM [facility] REPOSITORY [facility] Medical Records Department [address] [place] [address] Instructions for Home/Discharge Instructions 06/01/18 1348 MR#: [id number] Acct: [id number] Name: IMANI VEGA Rep #: [id number] : 1975 43 From: [place] Sylvester MD PCP: Yanet Mirza DO Status: REG [facility] Discharge Diet: No Restrictions Discharge Activity: May not drive while taking narcotic pain medications., May Shower, May Take a Tub Bath Return to work on:: 06/03/18 May resume sexual activity in: No Restrictions - when comfortable Weight Bearing Status: Weight bearing as tolerated Call your doctor if you observe: Fever of 101 or Higher, Inability to have a bowel movement, Using more than one pad per hour, Uncontrolled pain Additional Instructions: You make take three (200 mg each) Ibuprofen or two Aleve every 8 hrs as needed for milder pain. Add Tylenol 500 mg tablets 1-2 every 6 hrs . Take OxyIR for more severe pain. Allergies/Adverse Reactions: Allergies erythromycin base Adverse Reaction (Verified 05/24/18 09:40) Vomiting Medications to take at Discharge Multivitamin with Iron [Children's Vitamins with Iron] 1 each PO DAILY 05/24/18 Omeprazole [Prilosec] 20 mg PO DAILY 05/24/18 Oxycodone [Oxyir] 5 - 10 mg PO Q6H PRN PRN 2 Days #10 tablet 06/01/18 The following prescriptions were given: Oxycodone [Oxyir] 5 - 10 mg PO Q6H PRN PRN 2 Days #10 tablet PRN Reason: Mod-Severe Pain (4-10/10) Primary Care Physician: Yanet Mirza DO [Primary Care Provider] - Test Results: Test results from this visit will be discussed in further detail at your follow-up appointment, if applicable. Please Follow Up With: [place] Sylvester MD - [phone] When: two weeks for postop check up Proposed Discharge Date: 06/01/18 06/01/18 2763 <Electronically signed by [place] Sylvester MD> Date [place] Sylvester MD CC: Yanet Mirza DO ,URINE Collected: 06/01/2018 Status: F Source: [place] 12:16 PM [facility] REPOSITORY TYPE CODE TESTS RESULT OUT OF REFERENCE UNITS RANGE LAB L400.8000 Negative Normal HCGUQUAL Negative Result Comment: Very dilute urine specimens, as indicated by a low specific gravity, may not contain credit representative levels of hCG. If is still suspected, a first morning urine specimen should be collected 48 hours later and tested. Performed By: #### L400.7600 #### [facility] [address] [place], [address] ENDOMETRIAL BX/CURETTINGS Observed: 06/01/2018 Status: F Source: [place] 12:00 AM [facility] REPOSITORY Patient: IMANI VEGA : 1975 (43/F) Acct Num: [id number] Phys: Nga BUSTOS,Tr[place] Unit Num: [id number] Loc: [facility] Specimen: [id number] Received: 06/01/18 - 1544 Spec Type: ENDOM BX/C TISSUES 1 TISSUES: Endometrium, NOS GROSS DESCRIPTION Received in fixative is one container labeled with the patient's name and designated endometrial curettings. The specimen consists of multiple fragments of hemorrhagic soft tissue mixed with mucoid tissue that in aggregate measure 3 x 2.5 x 0.3 cm. The specimen is totally submitted in one cassette. / SJ:luis e 06/02/18 TC:4 CPT: 51243 HEADER OPERATION: Hysteroscopy, D AND C, Nirmala PRE-OP DIAGNOSIS: Menorrhagia TISSUE SUBMITTED: Endometrial curettings MICROSCOPIC DESCRIPTION Slides are reviewed. MICROSCOPIC DIAGNOSIS Endometrial curettings: Secretory endometrium. SJ:luis e 06/03/18 Signed Huber Keller 06/03/18 <signature on file> Performed By: #### PEMB #### [facility] [address] [place], [address] SCREENING MAMM (CAD), Observed: 11/24/2017 Status: F Source: [place] BIL 7:57 AM [facility] REPOSITORY [facility] Imaging Services [address] [place] [address] SCREENING MAMM (CAD), BILAT MR#: [id number] Acct: [id number] Name: IMANI VEGA Rep #: [id number] : 1975 F 42 From: Clyde Young MD PCP: Yanet Mirza DO Status: REG CLI Study: SCREENING MAMM (CAD), BILAT Date of Exam: 11/24/17 Exam# [id number] Ordering Dr: Yanet Mirza DO MAMMOGRAPHY - BILATERAL SCREENING REASON FOR EXAM: Female, 42 years old. Routine annual screening examination. PERTINENT HISTORY: NO FAM HX NO SX TECHNIQUE: Digital bilateral breast rodrigo (3D mammographic acquisition) in the CC and [...] significant abnormalities are identified. BI/SCREENING MAMM (CAD), BILAT IMPRESSION: Stable bilateral screening mammogram. Yearly follow-up mammogram recommended. (A) ASSESSMENT CATEGORY: BIRADS Category 2: Benign. A letter regarding these results will be sent to the patient by the facility within 30 days. Approximately 10% of breast cancers are not detected by mammography. A normal mammogram should not delay biopsy of a clinically suspicious abnormality. [id number] Electronically Signed: Clyde Young MD at 15:58 EDT Tel , Service support , CC: Yanet Mirza DO Relay Tester: Signed TRANSVAGINAL Observed: 11/09/2017 Status: F Source: [place] NON- 8:12 AM [facility] REPOSITORY [facility] Imaging Services [address] [place] [address] Transvaginal Non- MR#: [id number] Acct: [id number] Name: IMANI VEGA Rep #: [id number] : 1975 F 42 From: Cody Pereira PCP: Yanet Mirza DO Status: REG CLI Study: Transvaginal Non- Date of Exam: 11/09/17 Exam# [id number] Ordering Dr: Yanet Mirza DO ADDENDUM by Cody Pereira on 11/10/17 at 2206 US/Transvaginal Non- 11/10/172212 Date cc: Yanet Mirza DO * Signed ADDENDUM by Cody Pereira on 11/10/17 at 2206 ADDENDUM Impression should read: Fluid within the endometrial canal. 1.5 cm uterine fibroid. Electronically Signed: Cody Pereira MD at 22:06 EDT , Service support , 11/10/172205 Date cc: Yanet Mirza DO * Signed STUDY: ULTRASOUND OF THE FEMALE PELVIS - COMPLETE REASON [...] Service support , CC: Yanet Mirza DO Relay Tester: Signed THYROID Observed: 11/09/2017 Status: F Source: [place] 7:50 AM [facility] REPOSITORY [facility] Imaging Services [address] [place] [address] Thyroid MR#: [id number] Acct: [id number] Name: IMANI VEGA Rep #: [id number] : 1975 F 42 From: Cody Pereira PCP: Yanet Mirza DO Status: REG CLI Study: Thyroid Date of Exam: 11/09/17 Exam# [id number] Ordering Dr: Yanet Mirza DO STUDY: THYROID ULTRASOUND REASON FOR EXAM: Female, 42 years old. Dysphasia. TECHNIQUE: Ultrasound evaluation of the thyroid was performed with real-time and static holliday-scale imaging. COMPARISON: None. FINDINGS: RIGHT LOBE: The right lobe of the thyroid gland measures 4.6 x 1.5 x 1.1 cm. There is a homogeneous echotexture. There are no demonstrated solid, cystic or complex lesions. LEFT LOBE: The left lobe of the thyroid gland measures 4.3 x 1.2 x 1.2 cm. There is a homogeneous echotexture. There are no demonstrated solid, cystic or complex lesions. ISTHMUS: The isthmus measures 1 mm which is normal . The regional lymph nodes are normal. US/Thyroid IMPRESSION: Mildly enlarged thyroid gland right lobe greater than left. No nodules or cysts identified. Electronically Signed: Cody Pereira MD at 3:55 EDT , Service support , CC: Yanet Mirza DO Relay Tester: Signed PELVIC (NON ) Observed: 11/09/2017 Status: F Source: [place] 7:50 AM [facility] REPOSITORY [facility] Imaging Services [address] [place] [address] Pelvic (Non ) MR#: [id number] Acct: [id number] Name: IMANI VEGA Rep #: [id number] : 1975 F 42 From: Cody Pereira PCP: Yanet Mirza DO Status: REG CLI Study: Pelvic (Non ) Date of Exam: 11/09/17 Exam# [id number] Ordering Dr: Yanet Mirza DO ADDENDUM by Cody Pereira on 11/10/17 at 2206 US/Pelvic (Non ) 11/10/172212 Date cc: Yanet Mirza DO * Signed ADDENDUM by Cody Pereira on 11/10/17 at 2206 ADDENDUM Impression should read: Fluid within the endometrial canal. 1.5 cm uterine fibroid. Electronically Signed: Cody Pereira MD at 22:06 EDT , Service support , 11/10/172205 Date cc: Yanet Mirza DO * Signed STUDY: ULTRASOUND OF THE FEMALE PELVIS - COMPLETE REASON [...] Service support , CC: Yanet Mirza DO Relay Tester: Signed ALLERGIES ALLERGIES DATE TYPE / CODE NAME / CODE REACTION SEVERITY SOURCE 05/24/2018 Drug erythromycin Vomiting Unknown [place] Allergy/416 base/[id number](RXN [facility] [address] CT) Repository ENCOUNTERS ENCOUNTERS ADMIT/DISCHARGE ACCOUNT ADMITTING ENCOUNTER LOCATION SOURCE NUMBER CLASS 06/24/2018 [id number] Ambulatory [place] 4 [facility] ing:[facility] Repository 06/03/2018 [id number] Ambulatory [place] 7 [facility] ing:CT Repository 06/03/2018 [address] Ambulatory Building:[facility] [place] Pract[facility] Repository 06/01/2018/ [id number] Ambulatory [place] 8 1 [facility] ing:SDCRoom: Repository AC08 11/24/2017 [id number] Ambulatory [place] 4 [facility] ing:OPBI Repository 11/09/2017 [id number] Ambulatory [place] 5 [facility] ing:OPUS Repository PAYERS PAYERS ENCOUNTER GUARANTOR PAYER SUBSCRIBER SOURCE 06/24/2018 [place] Primary BEN [place] [id number] Insurance:ANTHEMPolic SCHNEIDERDOB: [facility] y Number: [id number] [id number] Repository [address]Yrm: 330) Date:0748-34-67AM [phone] () 1707[address]PBDJHGK, [place] [address]ZU: 06/24/2018 Secondary NOT GIVENUNK [place] Insurance:SELF PAY [facility] Number: Effective Repository Date:2018-06-03 06/03/2018 [place] Primary BEN [place] [id number] Insurance:ANTHEMPolic SCHNEIDERDOB: Community STEEPLE BHAKTI y Number: [id number] [id number] Repository [address]Ksx: ([phone]) Date:8706-15-63YJ [phone] (HP) [id number], [place] [address]MI: 06/03/2018 Secondary NOT GIVENUNK [place] Insurance:SELF PAY [facility] Number: Effective Repository Date:2018-06-03 06/03/2018 IMANI Wilson Primary [facility] Practices SCHNEIDERDOB: Insurance:[place] SchneiderDOB: Repository /[facility] Number: [id number] Steeple Bhakti [id number] [place], [place] Date:2094-13-82XmhzThousand Palms, [place] [address]Wdu: 330) Name:[facility] [address] [address]Cjz: [address], [place] [phone] () (HP)Tel: [phone]: () [phone] 06/03/2018 Secondary [facility] Practices Insurance:United SchneiderDOB: Repository [facility] [id number] Number: 5 Steeple Bhakti [id number] [place], [place] Date:2009-07-17 [address]Ksy: [phone] () Name:[facility] [address] [address]YwlnEast [place], [place] [address]WU: 06/01/2018 [place] Primary BEN [place] [id number] Insurance:ANTHEMPolic SCHNEIDERDOB: Community STEEPLE BHAKTI y Number: [id number] [place], [place] [id number] Repository [address]Wpa: 330) Date:6752-90-68JN [phone] (HP) [id number], [place] [address]MN: 06/01/2018 Secondary NOT GIVENUNK [place] Insurance:SELF PAY [facility] Number: Effective Repository Date:2018-05-17 11/24/2017 [place] Primary BEN [id number] Insurance:ANTHEMPolic SCHNEIDERDOB: Community STEEPLE BHAKTI y Number: [id number] [place], [place] [id number] Repository [address]Gix: ([phone]) Date:0488-55-41UF [phone] () [id number], [place] [address]ON: 11/24/2017 Secondary NOT GIVENUNK [place] Insurance:SELF PAY [facility] Number: Effective Repository Date:2017-11-01 11/09/2017 PA[place] Primary BEN [id number] Insurance:ANTHEMPolic SCHNEIDERDOB: Community STEEPLE BHAKTI y Number: [id number], [place] [id number] Repository [address]Vhs: ([phone]) Date:3810-31-51WD [phone] () [id number], [place] [address]SK: 11/09/2017 Secondary NOT GIVENUNK [place] Insurance:SELF PAY [facility] Number: Effective Repository Date:2017-11-01
--- OUTSIDE RECORDS SUMMARY | 2018-08-19 14:24 | XMS RPT_ITS | Continuity of Care Document ---
:1975 Author Organization [facility] Address [address] [facility] [address] [place] [address] Phone Care Team Providers Name Role Phone [...] {Tablet} Refills: 6 Ordered:04-May-2018 Fast DO, Yanet AFmadyson DOAngela A Start : 04-May-2018 Active Comments:please dispense dissolveable tablets AUGMENTIN, 875-125MG (Oral Tablet) 1 Tablet bid for 0 days Quantity: 20 {Tablet} Refills: 0 Ordered:07-Nov-2012 Elva Lacey Start : 11-Sep-2011 End : 07-Nov-2012 Inactive Hyoscyamine Sulfate 0.125 MG Sublingual Tablet Sublingual 1 (one) Tablet before lunch and before dinner for 0 days Quantity: 60 {Tablet} Refills: 1 Ordered:01-Nov-2017 Abhijit Elva Start : 22-Feb-2017 End : 01-Nov-2017 Inactive NASONEX, 50MCG/ACT (Nasal Suspension) 2 (two) Suspension each nostril daily for 0 days Quantity: 1 {Suspension} Refills: 0 Ordered:07-Nov-2012 Elva Lacey Start : 11-Sep-2011 End : 07-Nov-2012 Inactive NexIUM 24HR Clear Minis 20 MG Oral Capsule Delayed Release 1 (one) Capsule q am for 30 days Quantity: 30 {Capsule} Refills: 0 Ordered:01-Nov-2017 DebrapeggyElva Start : 22-Feb-2017 End : 01-Nov-2017 Inactive [...] Tonsillectomy Completed Comments: childhood Date Value Details 24-Nov-2017 SCREENING MAMM (CAD), BILAT Result: Comments: See Note; NOTES: [facility] Imaging Services [address] [place] [address] SCREENING MAMM (CAD), BILAT MR#: [id number] Acct: [id number] Name: KARYN VEGAASHLEY Padron ep #: [id number] : 1975 F 42 From: Clyde Young MD PCP: Yanet Mirza DO Status: REG CLI Study: SCREENING MAMM (CAD), BILAT Date of Exam: 11/24/17 Exam# [id number] Ordering Dr: Yanet Mirza DO MA MMOGRAPHY [...] delay biopsy of a clinically suspicious abnormality. [id number] Electronically Signed: Clyde Young MD at 15:58 EDT Tel , Service support , CC: Yanet Mirza DO Boiler Out: Signed 09-Nov-2017 Transvaginal Non- Result: Comments: See Note; NOTES: [facility] [address] [address] Transvaginal Non- MR#: [id number] Acct: [id number] Name: VEGAIMANI L Rep #: [id number] : 1975 F 42 From: Cody Pereira PCP: Yanet Mirza DO Status: REG CLI Study: Transvaginal Non- Date of Exam: 11/09/17 Exam# [id number] Ordering Dr: Yanet Mirza DO ADDENDUM by [...] Service support , CC: Yanet Mirza DO Boiler Out: Signed 09-Nov-2017 Transvaginal Non- Result: Comments: See Note; NOTES: [facility] Imaging Services [facility] [place] [address] Transvaginal Non- MR#: [id number] Acct: [id number] Name: IMANI VEGA Rep #: [id number] : 1975 F 42 From: Cody Pereira PCP: Yanet Mirza DO Status: REG CLI Study: Transvaginal Non- Date of Exam: 11/09/17 Exam# [id number] Ordering Dr: Yanet Mirza DO STUDY: U [...] Service support , CC: Yanet Mirza DO Boiler Out: Signed 09-Nov-2017 Pelvic (Non ) Result: Comments: See Note; NOTES: [facility] [address] [place] [address] Pelvic (Non ) MR#: [id number] Acct: [id number] Name: IMANI VEGA Rep #: [id number] : 1975 F 42 From: Cody Pereira PCP: Yanet Mirza DO Status: REG CLI Study: Pelvic (Non ) Date of Exam: 11/09/17 Exam# [id number] Ordering Dr: Yanet Mirza DO ADDENDUM by [...] Service support , CC: Yanet Mirza DO Boiler Out: Signed 09-Nov-2017 Pelvic (Non ) Result: Comments: See Note; NOTES: [facility] Services [address] [place] [address] Pelvic (Non ) MR#: [id number] Acct: [id number] Name: IMANI VEGA Rep #: [id number] : 1975 F 42 From: Cody Pereira PCP: Yanet Mirza DO Status: REG CLI Study: Pelvic (Non ) Date of Exam: 11/09/17 Exam# [id number] Ordering Dr: Yanet Mirza DO STUDY: ULTRASOUN [...] Service support , CC: Yanet Mirza DO Boiler Out: Signed 09-Nov-2017 Thyroid Result: Comments: See Note; NOTES: [facility] [address] [place] [address] Thyroid MR#: [id number] Acct: [id number] Name: IMANI VEGA Rep #: [id number] : 1975 F 42 From: Cody Pereira PCP: Yanet Mirza DO Status: REG CLI Study: Thyroid Date of Exam: 11/09/17 Exam# [id number] Ordering Dr: Yanet Mirza DO STUDY: THYROID [...] Service support , CC: Yanet Mirza DO Boiler Out: Signed 17-May-2017 Esophagus Only Result: Comments: See Note; NOTES: [facility] [address] [place] [address] Esophagus Only MR#: [id number] Acct: [id number] Name: IMANI VEGA Rep #: [id number] : 1975 F 42 From: Wilbur King MD PCP: Yanet Mirza DO Status: REG CLI Study: Esophagus Only Date of Exam: 05/17/17 Exam# [id number] Ordering Dr: Delbert Spaulding MD STUDY: X-RAY [...] Wilbur King MD at 10:13 EDT Tel [phone], Service support [phone], CC: Yanet Mirza DO; Delbert Spaulding Boiler Out: Signed 17-May-2017 Esophagus Only Result: Comments: See Note; NOTES: [facility] [address] [facility] [place] [address] Esophagus Only MR#: [id number] Acct: [id number] Name: IMANI VEGA Rep #: [id number] : 1975 F 42 From: Wilbur King MD PCP: Yanet Mirza DO Status: REG CLI Study: Esophagus Only Date of Exam: 05/17/17 Exam# [id number] Ordering Dr: Delbert Spaulding MD ADDENDUM by [...] Wilbur King MD at 13:41 EDT Tel [phone], Service support , 05/21/17 1341 Date cc: [...] Wilbur King MD at 10:13 EDT Tel [phone], Service support , CC: Yanet Mirza DO; Delbert Spaulding Boiler Out: Signed 26-Oct-2016 SCREENING MAMM (CAD), BILAT Result: Comments: See Note; NOTES: [facility] [address] [place] [address] Verdana 4d SCREENING MAMM (CAD), BILAT MR#: [id number] Acct: [id number] Name: JULIAN VEGA Rep #: [id number] : 1975 F 41 From: Wilbur King MD PCP: Yanet Mirza DO Status: REG CLI Study: SCREENING MAMM (CAD), BILAT Date of Exam: 10/26/16 Exam# [id number] Ordering Dr: Yanet Mirza DO MAMMOGRAPHY - [...] delay biopsy of a clinically suspicious abnormality. [id number] Electronically Signed: Wilbur King MD 10/26 at 10:35 EDT Tel [phone], Service support [phone], CC: Yanet Mirza DO Boiler Out: Signed 26-Oct-2016 SCREENING MAMM (CAD), BILAT Result: Comments: See Note; NOTES: [facility] Imaging Services [address] [place] [address] Verdana 4d SCREENING MAMM (CAD), BILAT MR#: [id number] Acct: [id number] Name: JULIAN VEGA Rep #: [id number] : 1975 F 41 From: Wilbur King MD PCP: Yanet Mirza DO Status: REG CLI Study: SCREENING MAMM (CAD), BILAT Date of Exam: 10/26/16 Exam# [id number] Ordering Dr: Yanet Mirza DO MAMMOGRAPHY - [...] delay biopsy of a clinically suspicious abnormality. [id number] Electronically Signed: Wilbur King MD 10/26 at 10:35 EDT Tel [phone], Service support [phone], CC: Yanet Mirza DO Boiler Out: Signed 09-Oct-2016 Pulmonary Function Report Comp Result: Comments: See Note; NOTES: [facility] Pulmonary Services/Neurology [address] [place] [address] Pulmonary Function Test (Comp) MR#: [id number] Acct: [id number] Name: IMANI VEGA Rep #: [id number] : 1975 41 From: Abel Guadarrama DO Referring Dr: Yanet Mirza DO Status: REG CLI Ordering Dr: Yanet Mirza DO Date: 10/07/16 Location: [facility] Sex: F C DATE OF SERVICE: 10/07 INTRODUCTION: The patient is a 41-year-old female currently being seen by Dr. Mirza that presents for pulmonary function testing secondary to a diagnosis of abnormal PFTs. Respiratory erapy reports good patient effort and reports no [...] for comparison. DO Mahendra Coker C: Th e referring provider T: NTS JOB: [id number] 10/09/16 1537 <Electronically signed by Abel Guadarrama DO> Date Abel Guadarrama DO CC: Yanet Mirza DO; Sanchez D.O. Date Dictated: 10/07/161444 Date Transcribed: 10/07/161444 Boiler Out: Signed 19-Aug-2016 Chest PA and Lateral Result: Comments: See Note; NOTES: [facility] Imaging Services [address] [place] [address] Verdana 4d Chest PA and Lateral MR#: [id number] Acct: [id number] Name: IMANI VEGA Rep #: [id number] : 1975 F 41 From: Lj Haney MD PCP: Yanet Mirza DO Status: REG CLI Study: Chest PA and Lateral Date of Exam: 08/19/16 Exam# [id number] Ordering Dr: Yanet Mirza DO ST UDY: [...] 7:56 EST Tel , Service sup port [phone], CC: Yanet Mirza DO Boiler Out: Signed 24-Oct-2015 Bilat Scrn Digital AND CAD Result: Comments: See Note; NOTES: [facility] [address] [place] [address] Verdana 4d Bilat Scrn Digital AND CAD MR#: [id number] Acct: [id number] Name: IMANI VEGA Rep #: [id number] : 1975 F 40 From: Wilbur King MD PCP: Yanet Mirza DO Status: REG CLI Study: Bilat Scrn Digital AND CAD Date of Exam: 10/24/15 Exam# [id number] Gene haro Dr: Yanet Mirza DO MAMMOGRAPHY - BILATERAL [...] delay biopsy of a clinically suspicious abnormality. [id number] Electronically Signed: Wilbur King MD at 11:19 EDT Tel [phone], Service support [phone], Fax CC: Yanet Mirza DO Boiler Out: Signed 24-Sep-2015 Liver Result: Comments: See Note; NOTES: [facility] [address] [place] [address] Verdana 4d Liver MR#: [id number] Acct: [id number] Name: IMANI VEGA Vito ep #: [id number] : 1975 F 40 From: Wilbur King MD PCP: Yanet Mirza DO Status: REG CLI Study: Liver Date of Exam: 09/24/15 Exam# [id number] Ordering Dr: Yanet Mirza DO STUDY: ABDOMI [...] Wilbur King MD at 10:09 EST Tel [phone], Service support [phone], CC: Yanet Mirza DO Boiler Out: Signed 18-Sep-2015 ELECTROCARDIOGRAM, COMPLETE (ECG) (30700) Comments: ekg showed normal sinus rhythym, normal axis, no acute st/t wave changes poor r wave unchanged Result: [MEASUREMENTS ANALYSIS] Date of Test: 09/18/2015 10:28:56; Heart Rate: 72; AK Interval: 126; QRS: 82; QT Interval: 372; Corrected QT Interval (QTc): 393; P [place]: 66; QRS [place]: 37; T [place]: 40; Blood Pressure: 100/60 [ECG DIAGNOSTIC STATEMENTS] Date of Test: 09/18/2015 10:28:56; Summary: Sinus Rhythm -Poor R-wave progression -nonspecific - consider old anterior infarct. BORDERLINE 19-Oct-2014 Gallbladder Result: Comments: See Note; NOTES: [facility] [address] [place] [address] Ultrasound Report MR#: [id number] Acct: [id number] Name: IMANI VEGA Rep #: [id number] : 1975 F 39 From: Wilbur King MD PCP: Yanet Mirza DO Status: REG CLI Study: Gallbladder Date of Exam: 10/19/14 Exam# [id number] Ordering Dr: Yanet Mirza DO STUDY: ABDOMI [...] Wilbur King MD at 11:30 EDT Tel [phone], Service support [phone], CC: Yanet Mirza DO Boiler Out: Signed 17-Oct-2014 Unilat Lt Diag Digital AND CAD Result: Comments: See Note; NOTES: [facility] Imaging Services [address] [place] [address] Breast Imaging Report MR#: [id number] Acct: [id number] Name: IMANI VEGA Rep #: [id number] : 1975 F 39 From: Wilbur King MD PCP: Yanet Mirza DO Status: REG CLI Study: Unilat Lt Diag Digital AND CAD Date of Exam: 10/17/14 Exam# [id number] Ordering Dr: Vashti Mirza ra, DO MAMMOGRAPHY [...] Wilbur King MD at 12:43 EDT Tel [phone], Service sup port [phone], CC: Yanet Mirza DO Boiler Out: Signed 17-Oct-2014 Breast Limited Unilateral Result: Comments: See Note; NOTES: [facility] Services [address] [place] [address] Ultrasound Report MR#: [id number] Acct: [id number] Name: IMANI VEGA Rep #: [id number] : 1975 F 39 From: Wilbur King MD PCP: Yanet Mirza DO Status: REG CLI Study: Breast Limited Unilateral Date of Exam: 10/17/14 Exam# [id number] Ordering Dr: Yanet Mirza DO STUDY: ULTRASOUND [...] Wilbur King MD at 12:38 EDT Tel [phone], Service support [phone], CC: Yanet Mirza DO Boiler Out: Signed 11-Oct-2014 Bilat Scrn Digital AND CAD Result: Comments: See Note; NOTES: [facility] Services [address] [place] [address] Breast Imaging Report MR#: [id number] Acct: [id number] Name: IMANI VEGA Rep #: [id number] : 1975 F 39 From: Clyde Young MD PCP: Yanet Mirza DO Status: REG CLI Study: Bilat Scrn Digital AND CAD Date of Exam: 10/11/14 Exam# [id number] Ordering Dr: Yanet Mirza DO MAMMOGRAPHY - [...] at 17:59 EDT Tel , Service support [phone], CC: Yanet Mirza DO Boiler Out: Signed 26-May-2013 Breast Unilateral Result: Comments: See Note; NOTES: [facility] [address] [place] [address] Ultrasound Report MR#: [id number] Acct: [id number] Name: IMANI VEGA Rep #: [id number] : 1975 F 38 From: Wilbur King MD PCP: Status: REG CLI Study: Breast Unilateral Date of Exam: 05/26/13 Exam# [id number] Ordering Dr: Yanet Mirza DO STUDY: ULTRASOUND HORTENICA AST(S) - RIGHT REASON FOR EXAM: Female, [...] May 26, 2013 at 12:47:27 PM EDT [phone] Electronically Signed GP/GP If you are the referring physician and would like to consult with the radiologist who provi ded this interpretation, please contact Wilbur King M.D. at [phone]. If this radiologist is unavailable, you will be directed to another radiologist to assist. If you are a patient with a question regarding this report, please contact your referring physician directly. Professional Interpretation Provided By: [employer], Phone , These documents con tain legally [...] of these documents. CC: Yanet Mirza DO Boiler Out: Signed 23-May-2013 Khris Lyn Digital & CAD Result: Comments: See Note; NOTES: [facility] Services [address] [place] [address] Breast Imaging Report MR#: [id number] Acct: [id number] Name: IMANI VEGA Rep #: [id number] : 1975 F 38 From: Wilbur King MD PCP: Status: REG CLI Exam# [id number] Ordering Dr: Yanet Mirza DO MAMMOGRAPHY - [...] May 23 013 at 9:00:06 AM EDT [phone] Electronically Signed GP/GP If you are the referring physician and would like to consult with the radiologist who provided this interpretation, please contact Edu King M.D. at [phone]. If this radiologist is unavailable, you will be directed to another radiologist to assist. If you are a patient with a question regarding this report, please contact your referring physician directly. Professional Interpretation Provided By: [employer], Phone , These documents contain legally protected [...] of these documents. CC: Yanet Mirza DO Boiler Out: Signed Family History Unknown Family Member Name [...] smoker Vital Signs Date Test Result Details 49-Tkz-70847:47 Temperature 98 f Comments: Method: Temporal Pulse [...] kg/m2 Body Surface Area Calculated 1.45 m2 21-Aiz-954537:00 Temperature 97.4 f Comments: Method: Temporal Pulse [...] 1.44 m2 Results Date Description Value Details 92-Awo-484549:37 CBC W/AUTO DIFF WBC (46354) Comments: PATIENT WAS FASTINGPERFORMED BY: [facility] HospitalGjqloz3271 [facility] [id number] Immature Grans (Abs) 0.0 {x10E3/uL} (Normal) Range: [...] 3.77-5.28 WBC 6.2 {x10E3/uL} (Normal) Range: 3.4-10.8 43-Thz-603298:37 METABOLIC PANEL, COMPREHENSIVE Comments: PATIENT WAS FASTINGPERFORMED BY: [facility]CoSt[facility] HospitalWjuerf9273 [facility] [id number] (04740) ALT (SGPT) 9 [iU]/L (Normal) Range: 0-32 [...] 6-24 Glucose 79 mg/dL (Normal) Range: 65-99 62-Zjo-978802:37 LIPID PANEL (77582) Comments: PATIENT WAS FASTINGPERFORMED BY: SCYNEXISSt[facility] HospitalUmtgvl3315 [facility] [id number] LDL/HDL Ratio 1.7 {ratio} (Normal) Range: 0.0-3.2 [...] be changing to: Male Female 40 - 437222 50 - 551183 Triglycerides 101 mg/dL (Normal) Range: 0-149 Cholesterol, Total 206 mg/dL (Abnormal) Range: 100-199 2-Dph-365452:34 METABOLIC PANEL, Comments: PATIENT NOT FASTINGPERFORMED BY: SCYNEXISSt[facility] HospitalJwalpv5315 [facility] [id number] BY: [address] [id number] COMPREHENSIVE (63416) ALT (SGPT) 9 [iU]/L (Normal) Range: 0-32 [...] 6-24 Glucose 88 mg/dL (Normal) Range: 65-99 0-Krx-624924:34 TESTOSTERONE FREE (62784) Comments: PATIENT NOT FASTINGPERFORMED BY: [employer] Qdcakj0898 [facility] [id number] BY: [address] [id number] Free Testosterone(Direct) 0.8 pg/mL (Normal) Range: 0.0-4.2 1-Heq-642612:34 PROLACTIN (48129) Comments: PATIENT NOT FASTINGPERFORMED BY: [employer] Fiqebs8603 [facility] [id number] BY: [address] [id number] Prolactin 5.6 ng/mL (Normal) Range: 4.8-23.3 8-Gux-604648:34 PT (PROTHROMBIN TIME) Comments: PATIENT NOT FASTINGPERFORMED BY: [employer] Bgesba5293 [facility] [id number] BY: [address] [id number] (70961) Prothrombin Time 10.2 {sec} (Normal) Range: 9.1-12.0 INR 1.0 (Normal) Range: 0.8-1.2 Comments: Reference interval is for non-anticoagulated patients. . Suggested INR therapeutic range for Vitamin K anta gonist therapy: Standard Dose (moderate intensity therapeutic range): 2.0 - 3.0 Higher intensity therapeutic range 2.5 - 3.5 4-Lwa-532542:34 PTT (ACTIVATED PARTIAL Comments: PATIENT NOT FASTINGPERFORMED BY: [address] [id number] BY: [address] [id number] THROMBOPLASTIN TIME) (21113) aPTT 26 {sec} (Normal) Range: 24-33 Comments: This test has not been validated for monitoring unfractionated heparintherapy. aPTT-based therapeutic ranges for unfractionated heparintherapy have not been established. For general guidelines onHeparin monitoring, refer to the [facility] Directory of Services. 2-Kmt-578450:34 CBC W/AUTO DIFF WBC Comments: PATIENT NOT FASTINGPERFORMED BY: [address] [id number] BY: [address] [id number] (76350) Immature Grans (Abs) 0.0 {x10E3/uL} (Normal) Range: [...] 3.77-5.28 WBC 6.8 {x10E3/uL} (Normal) Range: 3.4-10.8 95-Cen-57508:34 METABOLIC PANEL, COMPREHENSIVE Comments: PATIENT NOT FASTINGPERFORMED BY: [facility]CoSt[facility] HospitalJzshtc1692 [facility] [id number] (41160) ALT (SGPT) 6 [iU]/L (Normal) Range: 0-32 [...] Glucose, Serum 95 mg/dL (Normal) Range: 65-99 48-Vzi-64509:34 CBC, PLATELETS & MANUAL DIFF Comments: PATIENT NOT FASTINGPERFORMED BY: [facility] Onrmef8856 [facility] [id number] (13409) Immature Grans (Abs) 0.0 {x10E3/uL} (Normal) Range: [...] 04/27/17 LMP- COLLECTION VIAL: Thin Prep Vial- MAT REPAIRER SOURCE: CERVICAL/ENDOCERVICAL- COLLECTION TECHNIQUE: BRUSH/SPATULASpecimen Comment: [id number] Comment: No. of containers..01 ThinPrep VialLabCorp (refer to report for specific site)refer to report for address and phone number HPV RFLX Comment (Normal) Comments: The HPV DNA reflex criteria were not met with this specimenresult therefore, no HPV testing was performed.Performed at: [address] [id number] Director: Hazel Azul MD, Phone: [phone] PAPSMR Comment (Normal) Comments: The Pap smear [...] system. PERFORM Comment (Normal) Comments: Torrey Marquis, Data Integrity Consultant (ASCP) ADEQ Comment (Normal) Comments: Satisfactory for evaluation. Endocervical and/or squamous metaplasticcells (endocervical component) are present. DIAGN Comment (Normal) Comments: NEGATIVE FOR INTRAEPITHELIAL LESION AND MALIGNANCY. 30-Tog-423709:03 Urinalysis, Office (70555) UA - LEUKOCYTE ESTERASE Negative (Normal) UA - NITRITE Negative (Normal) URINE UROBILINGN DANISHA TIMED Normal mg/dL (Normal) UA - PROTEIN Negative mg/dL (Normal) UA - PH 7 (Normal) UA - BLOOD Negative (Normal) UA - SPECIFIC GRAVITY 1.010 (Normal) UA - KETONES Negative mg/dL (Normal) UA - BILIRUBIN Negative (Normal) UA - GLUCOSE Negative (Normal) 05-Ojt-313939:23 URINE SHAYAN CULTURE-IDENTIFICATN Comments: PATIENT NOT FASTINGPERFORMED BY: [facility]6370 [facility] [id number] Information: SRC:UC (85570) Result 1 MUG (Normal) Comments: Mixed urogenital flora10,000-25,000 colony forming units per mL Urine Final report (Normal) Culture,Comprehensive 91-Qqj-92713:17 CBC W/AUTO DIFF WBC Comments: PATIENT WAS FASTINGPERFORMED BY: [facility] [id number] BY: MARK [facility] [place]6370 [facility] [id number] (29042) Immature Grans (Abs) 0.0 {x10E3/uL} (Normal) Range: [...] METABOLIC PANEL, Comments: PATIENT WAS FASTINGPERFORMED BY: [facility]Co[address] [id number] BY: [facility]CoSt. [facility] HospitalCjlzzh2215 [facility] [id number] COMPREHENSIVE (53613) ALT (SGPT) 6 [iU]/L (Normal) Range: 0-32 [...] BY NMR Comments: PATIENT WAS FASTINGPERFORMED BY: [facility] [id number] BY: [facility]CoSt. [facility] HospitalLpgihw8955 [facility] [id number] (53272) LP-IR Score <25 (Normal) Comments: INSULIN RESISTANCE MARKER <--Insulin Sensitive Insulin Resistant--> Percentile in Reference PopulationInsulin Resistance ScoreLP-IR Score Low 25th 50th 75th High <27 27 45 63 >63LP-IR Score is inaccurate if patient is non-fasting. .The LP-IR score is a laboratory developed i [facility] that has beenassociated with insulin resistance [...] were developed and their performance characteristicsdetermined by [employer]. These assays have not been cleared by [...] 1600 - 2000 Very High > 2000 89-Uji-363635:37 HEPATIC FUNCTION PANEL Comments: PATIENT NOT FASTINGPERFORMED BY: [facility] [id number] Information: 150846,Q23848 (80584) ALT (SGPT) 11 [iU]/L (Normal) Range: 0-32 AST (SGOT) 17 [iU]/L (Normal) Range: 0-40 Alkaline Phosphatase, S 45 [iU]/L (Normal) Range: 39-117 Bilirubin, Direct 0.12 mg/dL (Normal) Range: 0.00-0.40 Bilirubin, Total 0.4 mg/dL (Normal) Range: 0.0-1.2 Albumin, Serum 4.3 g/dL (Normal) Range: 3.5-5.5 Protein, Total, Serum 6.9 g/dL (Normal) Range: 6.0-8.5 :34 BRENT (ANTINUCLEAR ANTIBODY) Comments: PATIENT NOT FASTINGPERFORMED BY: [facility]aceuticalsEC[facility] [id number] (84847) BRENT Direct Negative (Normal) :34 ANTI-LIVER/KIDNEY MICROSOMAL Comments: PATIENT NOT FASTINGPERFORMED BY: [facility]EC[facility] [id number] ANTIBODY (55870) Thyroid Peroxidase (TPO) Ab 7 {IU/mL} (Normal) Range: 0-34 :34 ASM (ANTI SMOOTH MUSCLE Comments: PATIENT NOT FASTINGPERFORMED BY: [employer] [facility] [id number] ANTIBODY) (32047) Actin (Smooth Muscle) Antibody 9 {Units} (Normal) Range: 0-19 Comments: Negative 0 - 19 Weak positive 20 - 30 Moderate to strong positive >30 . Actin Antibodies are found in 52-85% of patients with autoimmune hepatitis or chronic active hepatitis and in 22% of patients with primary biliary cirrhosis. :34 CERULOPLASMIN (31362) Comments: PATIENT NOT FASTINGPERFORMED BY: [employer] Hsdymt7817 [facility] [id number] Ceruloplasmin 26.5 mg/dL (Normal) Range: 19.0-39.0 :34 FERRITIN (88240) Comments: PATIENT NOT FASTINGPERFORMED BY: [employer] Ddgiqp9480 [facility] [id number] Ferritin, Serum 16 ng/mL (Normal) Range: 15-150 :34 TRANSFERRIN (62149) Comments: PATIENT NOT FASTINGPERFORMED BY: [employer]6370 [facility] [id number] Transferrin 356 mg/dL (Normal) Range: 200-370 :34 ANTIMITOCHONDRIAL ANTIBODY Comments: PATIENT NOT FASTINGPERFORMED BY: [employer] Uocxkk5812 [facility] [id number] (29400) Mitochondrial (M2) Antibody <20.0 {Units} (Normal) Range: 0.0-20.0 Comments: Negative 0.0 - 20.0 Equivocal 20.1 - 24.9 Positive >24.9 . Mitochondrial (M2) Antibodies are found in 90-96% of patients with primary biliary cirrhosis. :34 HEPATITIS PANEL (39270) Comments: PATIENT NOT FASTINGPERFORMED BY: [employer] Gwdjpy1240 [facility] [id number] Hep C Virus Ab <0.1 {s/co_ratio} (Normal) Range: 0.0-0.9 Comments: Negative: < 0.8 Indeterminate: 0.8 - 0.9 Positive: > 0.9 . The CDC recommends that a positive HCV antibody result be followed up with a HCV Nucleic Acid Amplification test ([id number]). Hep B Core Ab, IgM Negative (Normal) HBsAg Screen Negative (Normal) Hep A Ab, IgM Negative (Normal) :34 HEPATIC FUNCTION PANEL Comments: PATIENT NOT FASTINGPERFORMED BY: [facility] [place] [facility] [id number] Information: [id number] ([id number]) ALT (SGPT) 51 [iU]/L (Abnormal) Range: 0-32 AST (SGOT) 23 [iU]/L (Normal) Range: 0-40 Alkaline Phosphatase, S 64 [iU]/L (Normal) Range: 39-117 Bilirubin, Direct 0.10 mg/dL (Normal) Range: 0.00-0.40 Bilirubin, Total 0.4 mg/dL (Normal) Range: 0.0-1.2 Albumin, Serum 4.7 g/dL (Normal) Range: 3.5-5.5 Protein, Total, Serum 7.3 g/dL (Normal) Range: 6.0-8.5 :49 Magnesium (42602) Comments: PATIENT WAS FASTINGPERFORMED BY: [place]Kim[place] [id number] [facility] [id number] Magnesium, Serum 2.1 mg/dL (Normal) Range: 1.6-2.3 :49 LIPID PANEL (77387) Comments: PATIENT WAS FASTINGPERFORMED BY: SCYNEXISSt. Luke[facility] Warren HospitalNnvtjq2409 [facility] [id number] LDL/HDL Ratio 1.8 {ratio_units} (Normal) Range: 0.0-3.2 [...] DIFF WBC Comments: PATIENT WAS FASTINGPERFORMED BY: [facility]6370 [facility] [id number] Information: [id number] (16410) Immature Grans (Abs) 0.0 {x10E3/uL} (Normal) Range: [...] 3.77-5.28 WBC 10.0 {x10E3/uL} (Normal) Range: 3.4-10.8 47-Tmd-238547:49 METABOLIC PANEL, COMPREHENSIVE Comments: PATIENT WAS FASTINGPERFORMED BY: [facility]6370 [facility] [id number] ([id number]) ALT (SGPT) 160 [iU]/L (Abnormal) Range: 0-32 [...] Glucose, Serum 80 mg/dL (Normal) Range: 65-99 92-Wft-799171:49 TSH (21110) Comments: PATIENT WAS FASTINGPERFORMED BY: [facility] [id number] TSH 0.807 {uIU/mL} (Normal) Range: 0.450-4.500 60-Ern-35928:40 HEPATOBILLIARY IMG W/PHARM INT Radiology Report See [...] Cholecystokinin (0.02 ug/kg) was administered intravenously over l12-imumeb period. The post CCK gallbladder ejection fr action mhbrkxrhcall04 minutes following Cholecystokinin administration was noted to [...] Hunt M.D.November 16, 2012 at 10:16:20 PM [id number] Signed RB/RB If you are the referr ing physician and would like to consult with theradiologist who provided this interpretation, please contact Shaq Ryan at [phone]. If this radiologist is unavailable, you will bedirected to another radiologist to assist. If you are a patient with a question regarding this report, pleasecontactyour referring physician directly. Professional Interpretation Provided By: [employer], Phone , These documents contain legally protected [...] on 11/16/12 Sign by: Arsen Hunt DO 66-Hdv-85189:53 GALLBLADDER Radiology Report See Note (Normal) Comments: [...] of the right kidney. T he right ntujxdshjkmsiz42.1 cm. Normal renal cortex. The right cortex measures 1.1 cm. Thereisno demonstrated renal mass or cyst. There is no right hydronephrosis. IMPRESSION:Normal right upper quad rant ultrasound examination. Signed:Wilbur King M.D.November 11, 2012 at 10:17:23 AM [id number] Signed GP/GP If you are the referring physician and would like to consult with the radiologist who provided this interpretation, please contact Shaq Renteria at [phone]. If this radiologist is unavailable, youwill be directed to another radiologist to assist. If you are a patient with a question regarding this report, pleasecontactyour referring physician directly. Professional Interpretation Provided By: [employer], Phone , These docume nts contain legally [...] documents. Dictated on 11/11/12 0914 by Christine BUSTOS,Joyceranscribed on 11/11/12 1018 by ITS IMPORTSign by Wilbur King MD on 11/11/12 1019 Sign by: Wilbur King MD 08-Nov-2012 DDIMQ 0.45 {FEUug/mL} Range: 0.22-0.48 9:29 (Normal) Comments: NORMAL D-Dimer level indicates no DVT or PE. 78-Rgc-34494:31 CHEST PA AND LATERAL Radiology Report See [...] Colon D.O.November 08, 2012 at 3:51:32 PM [id number] Signed DS/DS If you are the referring p hysician and would like to consult with theradiologist who provided this interpretation, please contact Timmy Colon D.O. at [phone]. If this radiologist is unavailable, you will bedirected to [facility] radiologist to assist. If you are [...] Dereje Goldman DO :30 T3, FREE (TRIDOTHYRONINE) ([id number]) Comments: PATIENT WAS FASTINGPERFORMED BY: SCYNEXISCarrie Tingley HospitalFldukl6688 [facility] [id number] Triiodothyronine,Free,Serum 3.5 pg/mL (Normal) Range: 2.0-4.4 :30 T4, FREE (THYROXINE) (46876) Comments: PATIENT WAS FASTINGPERFORMED BY: SCYNEXIS Lxnkjb4170 [facility] [id number] T4,Free(Direct) 1.23 ng/dL (Normal) Range: 0.82-1.77 :30 TSH (50033) Comments: PATIENT WAS FASTINGPERFORMED BY: Neuralitic SystemsCarrie Tingley HospitalQhhela0449 [facility] [id number] TSH 1.470 {uIU/mL} (Normal) Range: 0.450-4.500 :30 CBC WITH MANUAL DIFF Comments: PATIENT WAS FASTINGPERFORMED BY: Neuralitic SystemsSt. Luke's Warren HospitalKmttgi9861 [facility] [id number] Information: [id number] (72165) Immature Grans (Abs) 0.0 {x10E3/uL} (Normal) Range: [...] 3.77-5.28 WBC 6.1 {x10E3/uL} (Normal) Range: 4.0-10.5 91-Gkx-30311:30 METABOLIC PANEL, COMPREHENSIVE Comments: PATIENT WAS FASTINGPERFORMED BY: MARK LabCoSt. Luke's Warren HospitalBgvalj3143 [facility] [id number] (55967) ALT (SGPT) 11 [iU]/L (Normal) Range: 0-32 [...] Glucose, Serum 82 mg/dL (Normal) Range: 65-99 57-Ynq-269835:48 SOFT TISSUE NECK WITH CONTRAST Radiology Report [...] normal. Dictated on 06/22/11 1301 by Alejandro BUSTOS,ElayneTranscribed on 06/23/11916 by ITS IMPORTSign by Alejandro BUSTOS,Elayne on 06/23/11917 Sign by: _ Elayne Allen MD 4-Lvg-024553:48 Microscopic Examination Comments: PATIENT WAS FASTINGPERFORMED BY: F[facility]BohSaint [facility] [id number] Bacteria Few (Normal) Mucus Threads Present (Normal) Epithelial Cells (non renal) 0-10 {/hpf} (Normal) Range: 0 - 10 RBC None seen {/hpf} (Normal) Range: 0 - 3 WBC 0-5 {/hpf} (Normal) Range: 0 - 5 4-Yry-862068:37 SHAYAN CULTURE-OTHER (11846) Comments: PATIENT NOT FASTINGPERFORMED BY: [employer]70 [place] resmioECU Health Bert[facility] Hospital [id number] Information: SRC:THRT [id number] Result 1 RRF (Normal) Comments: Routine respiratory kaylin Upper Respiratory Culture Final report (Normal) 7-Bnx-995801:48 TSH (76497) Comments: PATIENT WAS FASTINGPERFORMED BY: [employer] LouisGuestCrew.comECU Health [facility] Hospital [id number] TSH 0.917 {uIU/mL} (Normal) Range: 0.450-4.500 0-Xhx-117257:48 EBV Panel (15326) Comments: PATIENT WAS FASTINGPERFORMED BY: [employer]70 [facility] [id number] Interpretation: SPRCS (Normal) Comments: EBV Interpretation Chart [...] (LACTATE DEHYDROGENASE) Comments: PATIENT WAS FASTINGPERFORMED BY: SCYNEXISSt. Luke's Warren HospitalJnljxg1718 [facility] [id number] (14809) LDH 150 [iU]/L (Normal) Range: 0-214 6-Rak-875321:48 RHEUMATOID FACTOR-QUANT (30405) Comments: PATIENT WAS FASTINGPERFORMED BY: SCYNEXISSt. Luke's Warren HospitalFgxreu8449 [facility] [id number] RA Latex Turbid. 9.7 {IU/mL} (Normal) Range: 0.0-13.9 :48 SED RATE ERYTHROCYTE (94525) Comments: PATIENT WAS FASTINGPERFORMED BY: [facility] [place]6370 [facility] [id number] Sedimentation Rate-Westergren 4 mm/h (Normal) Range: 0-39 9-Moh-868789:48 C-REACTIVE PROTEIN (82270) Comments: PATIENT WAS FASTINGPERFORMED BY: SCYNEXISSt. Luke's Warren HospitalMcxbej6619 [facility] [id number] C-Reactive Protein, Quant 0.9 mg/L (Normal) Range: 0.0-4.9 :48 BRENT (ANTINUCLEAR ANTIBODY) Comments: PATIENT WAS FASTINGPERFORMED BY: SCYNEXISSt. Luke's Warren HospitalBugehm8234 [facility] [id number] (21694) BRENT Direct Negative (Normal) :48 URINALYSIS, W/ MICRO (38319) Comments: PATIENT WAS FASTINGPERFORMED BY: [facility] [place]6370 [facility] [id number] Microscopic Examination See below: (Normal) Microscopic Examination MICRON (Normal) Comments: Microscopic follows if indicated. Nitrite, Urine Negative (Normal) Urobilinogen,Semi-Qn 0.2 mg/dL (Normal) Range: 0.0-1.9 Bilirubin Negative (Normal) Occult Blood Negative (Normal) Ketones Negative (Normal) Glucose Negative (Normal) Protein Negative (Normal) WBC Esterase Negative (Normal) Appearance Clear (Normal) Urine-Color Yellow (Normal) pH 6.5 (Normal) Range: 5.0-7.5 Specific [place] 1.010 (Normal) Range: 1.005-1.030 :48 LIPID PANEL (19419) Comments: PATIENT WAS FASTINGPERFORMED BY: SCYNEXISSt. Luke's Warren HospitalPhfcdo4112 [facility] [id number] LDL/HDL Ratio 2.2 {ratio_units} (Normal) Range: 0.0-3.2 LDL Cholesterol Calc 138 mg/dL (Abnormal) Range: 0-99 HDL Cholesterol 63 mg/dL (Normal) Comments: According to ATP-III Guidelines, HDL-C >59 mg/dL is considered anegative risk factor for CHD. VLDL Cholesterol Carlos 17 mg/dL (Normal) Range: 5-40 Triglycerides 86 mg/dL (Normal) Range: 0-149 Cholesterol, Total 218 mg/dL (Abnormal) Range: 100-199 :48 CBC WITH MANUAL DIFF (95992) Comments: PATIENT WAS FASTINGPERFORMED BY: [facility] [place]6370 [facility] [id number] Immature Grans (Abs) 0.0 {x10E3/uL} (Normal) Range: [...] 3.80-5.10 WBC 6.4 {x10E3/uL} (Normal) Range: 4.0-10.5 7-Dnb-694925:48 METABOLIC PANEL, COMPREHENSIVE Comments: PATIENT WAS FASTINGPERFORMED BY: [facility] Ymmfqe5998 [facility] [id number] (03753) ALT (SGPT) 8 [iU]/L (Normal) Range: 0-40 [...] Female Indication: Sinusitis, acute Planned Observations CBC & PLATELETS (AUTO) (45165)Indication: Anemia On: 47-Sob-420977:32 Request LIPID PANEL (13202)Indication: Other and unspecified hyperlipidemia On: 1-Aqa-087589:47 Request HEPATIC FUNCTION PANEL (10241)Indication: Other and unspecified hyperlipidemia On: 3-Lce-634396:47 Request HEPATIC FUNCTION PANEL (27408)Indication: Abnormal liver function On: 41-Phi-87902:55 Request Comments: to be drawn 01/08 D-Dimer (08438)Indication: CHEST PAIN On: 34-Yef-130532:08 Request Planned Encounters Medical; [facility] Pre Wellness Exam (DF Nurse) - On: 24-Oct-2018 9:00 [facility] NURSE, DF Medical; [facility] Wellness Exam (Doctor) - On: 07-Nov-2018 8:30 [facility] Fast DO, Yanet A Fast DO, Yanet A Planned Procedures Flu Vaccine (Quadrivalent) [id number]: On: 04-May-2018 Intent Fast DO, Yanet A Fast DO, Yanet A Comments: Lot: #[id number]: 01/22/19Site: L dltd, IMDose prefilled syringegiven by: Drea reviewed and ABN signed Solu- Medrol Injection, 125mg On: 14-Apr-2018 Intent (J2930)By: Karen Montes DO Comments: Lot#[id number]:Site given:right gluteal Given By: martina ABN signed Solumedrol Ultrasound - ThyroidBy: Fast DO, On: 01-Nov-2017 Intent Yanet A Fast DO, Yanet A Ultrasound - PelvisBy: Fast DO, On: 01-Nov-2017 Intent Yanet A Fast DO, Yanet A SCREENING DIGITAL TOMOSYNTHESIS OF On: 01-Nov-2017 Intent BREAST (32566)By: Fast DO, Yanet A Fast DO, Yanet A ELECTROCARDIOGRAM, COMPLETE (ECG) On: 01-Nov-2017 Intent (15793)By: Fast DO, Yanet A Fast DO, Comments: ekg showed normal sinus rhythym, normal axis, no acute st/t wave changes Yanet A ELECTROCARDIOGRAM, COMPLETE (ECG) On: 01-Sep-2016 Intent (20214)By: Fast DO, Yanet A Fast DO, Comments: ekg showed normal sinus rhythym, normal axis, no acute st/t wave changes Yanet A Radiology - Chest- PA and LatBy: On: 19-Aug-2016 Intent Fast DO, Yanet A Fast DO, Yanet A PFT - CompleteBy: Fast DO, Yanet A On: 19-Aug-2016 Intent Fast DO, Yanet A SCREENING DIGITAL TOMOSYNTHESIS OF On: 19-Aug-2016 Intent BREAST (29698)By: Fast DO, Yanet A Comments: end september Fast DO, Yanet A Ultrasound - LiverBy: Fast DO, Yanet On: 23-Sep-2015 Intent A Fast DO, Yanet A MAMMOGRAM, SCREENING, BOTH BREAST On: 18-Sep-2015 Intent (19491)By: Fast DO, Yanet A Fast DO, Yanet [...] Yanet A Fast DO, Yanet A Spirometry (71030)By: Fast DO, On: 07-Nov-2012 Intent Yanet A [...] Comments: soft tissue TD Injection , IM (00714)By: On: 01-Jun-2011 Intent Una Herron Comments: 2008 FLU VAC, SPLIT, >3 YEARS, INTRAMUSC On: 01-Jun-2011 Intent (20149)By: Una Herron Comments: refuses Planned Medications INJECTION, [...] Indication: CHEST PAIN Encounters Phone Encounter On: 06-May-2018 13:31 Encounter Diagnosis: [...] Physical exam: MILO [facility] Physical--- went [facility] he did esophagram- and didnt scope [...] Diagnostic tests include other (hida scan). Date: (4/24/13). Current symptoms include abdominal pain (continues as [...] Reed in July 2012.- in jun was nellyi ng pressure in chest and jaw- and [...]
== END ==
PROVIDERS: Family Provider Internal Medicine; PCP Internal Medicine; Referring Provider Internal Medicine; Visit Provider Internal Medicine
DX: Z86.73 Personal history of transient ischemic attack (TIA), and cerebral infarction without residual deficits (principal)
CPT/HCPCS: 93306; A4216

== ENCOUNTER → 2018-09-06 09:28 | Outpatient (CLI) | payer BC, SELFPAY ==
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
== END ==
PROVIDERS: Family Provider Internal Medicine; PCP Internal Medicine; Referring Provider Internal Medicine; Visit Provider Internal Medicine
DX: R51 Headache (principal)
CPT/HCPCS: 70450

== ENCOUNTER → 2018-09-07 10:22 | Outpatient (CLI) | payer BC, SELFPAY ==
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
== END ==
PROVIDERS: Family Provider Internal Medicine; PCP Internal Medicine; Visit Provider Internal Medicine
DX: S06.0X0A Concussion without loss of consciousness, initial encounter (principal); X58.XXXA Exposure to other specified factors, initial encounter; Y93.9 Activity, unspecified; Y92.9 Unspecified place or not applicable; Y99.9 Unspecified external cause status
CPT/HCPCS: 70150

== ENCOUNTER → 2019-01-24 15:54 | Outpatient (CLI) | payer BC, SELFPAY ==
--- NOTE | 2019-01-24 15:55 | BI_ITS ---
MAMMOGRAPHY - BILATERAL SCREENING REASON FOR EXAM: Female, 43 years old. Routine annual screening examination. PERTINENT HISTORY: Non-contributory. TECHNIQUE: Digital bilateral breast lisbet (3D mammographic acquisition) in the CC and MLO projections. 2-D mediolateral oblique (MLO) and craniocaudad (CC) views of both breasts were obtained. CAD: Full Field Digital Mammography with Computer Added Detection was performed. COMPARISON: Comparison is made with prior study dated November 24, 2017 and October 26, 2016. FINDINGS: Breast Composition: The breasts are heterogeneously dense, which may obscure small masses. There are no dominant masses or suspicious calcifications. No other significant abnormalities are identified. There has been no significant change since the prior study. BI/SCREEN MAMM (CAD) W/LISBET BILAT IMPRESSION: Stable bilateral screening mammogram. Yearly follow-up mammogram recommended. (A) ASSESSMENT CATEGORY: BIRADS Category 1: Negative. A letter regarding these results will be sent to the patient by the facility within 30 days. Approximately 10% of breast cancers are not detected by mammography. A normal mammogram should not delay biopsy of a clinically suspicious abnormality. [id number] Electronically Signed: Wilbur King, at 9:32 EDT , Service support ,
== END ==
PROVIDERS: Family Provider Internal Medicine; PCP Internal Medicine; Referring Provider Internal Medicine; Visit Provider Internal Medicine
DX: Z12.31 Encounter for screening mammogram for malignant neoplasm of breast (principal)
CPT/HCPCS: 77063; 77067

== ENCOUNTER → 2020-02-22 16:01 | Outpatient (CLI) | payer BC, SELFPAY ==
--- NOTE | 2020-02-22 16:05 | BI_ITS ---
MAMMOGRAPHY - BILATERAL SCREENING REASON FOR EXAM: Female, 44 years old. Routine annual screening examination. PERTINENT HISTORY: Non-contributory. TECHNIQUE: Digital bilateral breast lisbet (3D mammographic acquisition) in the CC and MLO projections. 2-D mediolateral oblique (MLO) and craniocaudad (CC) views of both breasts were obtained. CAD: Full Field Digital Mammography with Computer Added Detection was performed. COMPARISON: Comparison is made with prior examination dated 01/24/2019 and 11/24/2017. FINDINGS: Breast Composition: The breasts are heterogeneously dense, which may obscure small masses. There are no dominant masses or suspicious calcifications. No other significant abnormalities are identified. There has been no significant change since the prior study. BI/SCREEN MAMM (CAD) W/LISBET BILAT IMPRESSION: Stable bilateral screening mammogram. Yearly follow-up mammogram recommended. (A) ASSESSMENT CATEGORY: BIRADS Category 1: Negative. A letter regarding these results will be sent to the patient by the facility within 30 days. Approximately 10% of breast cancers are not detected by mammography. A normal mammogram should not delay biopsy of a clinically suspicious abnormality. [id number] Electronically Signed: Wilbur King, at 8:30 EDT , Service support ,
== END ==
PROVIDERS: PCP Internal Medicine; Referring Provider Internal Medicine; Visit Provider Internal Medicine
DX: Z12.31 Encounter for screening mammogram for malignant neoplasm of breast (principal)
CPT/HCPCS: 77063; 77067

== ENCOUNTER → 2020-09-03 | Outpatient (CLI) | payer BC, SELFPAY ==
[2020-09-06 21:10] LABS: HPV APTIMA, High Risk Negative (Negative)
[2020-09-06 21:11] LABS: HPV Reflexed? YES, CHARGE PATIENT
== END | disposition home or self-care (01) ==
LOC: LABSPEC 17:04
PROVIDERS: PCP Internal Medicine; Visit Provider Student in an Organized Health Care Education/Training Program
DX: Z12.4 Encounter for screening for malignant neoplasm of cervix (principal)
CPT/HCPCS: 87624; 88175; G0145

== ENCOUNTER → 2021-02-24 15:26 | Outpatient (CLI) | payer BC, SELFPAY ==
--- NOTE | 2021-02-24 15:29 | BI_ITS ---
MAMMOGRAPHY - BILATERAL SCREENING REASON FOR EXAM: Female, 45 years old. Routine annual screening examination. PERTINENT HISTORY: TECHNIQUE: Digital bilateral breast lisbet (3D mammographic acquisition) in the CC and MLO projections. 2-D mediolateral oblique (MLO) and craniocaudad (CC) views of both breasts were obtained. CAD: Full Field Digital Mammography with Computer Added Detection was performed. COMPARISON: Previous mammogram obtained on 02/22/2020 FINDINGS: Breast Composition: Dense There are no dominant masses or suspicious calcifications. No other significant abnormalities are identified. BI/SCRN MAMM (CAD)W/LISBET BILAT IMPRESSION: Stable bilateral screening mammogram. Yearly follow-up mammogram recommended. (A) ASSESSMENT CATEGORY: BIRADS Category 1: Negative. A letter regarding these results will be sent to the patient by the facility within 30 days. Approximately 10% of breast cancers are not detected by mammography. A normal mammogram should not delay biopsy of a clinically suspicious abnormality. [id number] Electronically Signed: Nolan Covington DO at 15:36 EDT Tel , Service support ,
== END ==
PROVIDERS: PCP Internal Medicine; Referring Provider Internal Medicine; Visit Provider Internal Medicine
DX: Z12.31 Encounter for screening mammogram for malignant neoplasm of breast (principal)
CPT/HCPCS: 77063; 77067

== ENCOUNTER → 2021-12-16 | Outpatient (CLI) | payer BC, SELFPAY ==
[2021-12-16 15:26] LABS: Follicle Stimulating Hormone 97.8 mIU/mL; Luteinizing Hormone 28.2 mIU/mL
== END | disposition home or self-care (01) ==
LOC: WOBLAB 14:13
PROVIDERS: PCP Internal Medicine; Visit Provider Student in an Organized Health Care Education/Training Program
DX: N95.1 Menopausal and female climacteric states (principal)
CPT/HCPCS: 36415; 83001; 83002

== ENCOUNTER → 2022-02-27 | Outpatient (CLI) | payer BC, SELFPAY ==
--- NOTE | 2022-02-27 15:17 | BI_ITS ---
MAMMOGRAPHY - BILATERAL SCREENING REASON FOR EXAM: Female, 46 years old. Routine annual screening examination. PERTINENT HISTORY: Non-contributory. TECHNIQUE: Digital bilateral breast lisbet (3D mammographic acquisition) in the CC and MLO projections. 2-D mediolateral oblique (MLO) and craniocaudad (CC) views of both breasts were obtained. CAD: Full Field Digital Mammography with Computer Added Detection was performed. COMPARISON: Comparison is made with prior study 02/24/2021 and 02/22/2020. FINDINGS: Breast Composition: The breasts are heterogeneously dense, which may obscure small masses. There are no dominant masses or suspicious calcifications. No other significant abnormalities are identified. There has been no significant change since the prior study. BI/SCRN MAMM (CAD)W/LISBET BILAT IMPRESSION: Stable bilateral screening mammogram. Yearly follow-up mammogram recommended. (A) ASSESSMENT CATEGORY: BIRADS Category 1: Negative. A letter regarding these results will be sent to the patient by the facility within 30 days. Approximately 10% of breast cancers are not detected by mammography. A normal mammogram should not delay biopsy of a clinically suspicious abnormality. [id number] Electronically Signed: Wilbur King MD at 10:45 EDT ,
== END | disposition home or self-care (01) ==
LOC: OPBI 15:16
PROVIDERS: PCP Internal Medicine; Referring Provider Internal Medicine; Visit Provider Internal Medicine
DX: Z12.31 Encounter for screening mammogram for malignant neoplasm of breast (principal)
CPT/HCPCS: 77063; 77067

== ENCOUNTER → 2022-11-05 | Outpatient (CLI) | payer BC, SELFPAY ==
--- NOTE | 2022-11-05 09:33 | BI_ITS ---
MAMMOGRAPHY - UNILATERAL DIAGNOSTIC: LEFT BREAST REASON FOR EXAM: Female, 47 years old. LEFT AXILLARY PAIN PERTINENT HISTORY: Non-contributory. TECHNIQUE: Digital examination. Mediolateral oblique (MLO) and craniocaudad (CC) views of the breast were obtained, along with 3-D tomosynthesis. CAD: CAD was performed on this study. COMPARISON: 02/27/2022 FINDINGS: Breast Composition: The breasts are heterogeneously dense, which may obscure small masses. There are no dominant masses or suspicious calcifications. No other significant abnormalities are identified. However, because the patient complains specifically of left axillary pain, further evaluation of the left axilla with ultrasound is recommended. BI/DIAG MAMM W/CAD, UNILAT IMPRESSION: No suspicious mammographic findings, patient complains of pain in the left axillary region, further evaluation with ultrasound recommended Recall Side: Left Breast ASSESSMENT CATEGORY: BIRADS Category 0: Incomplete. Need additional imaging evaluation. A letter regarding these results will be sent to the patient by the facility within 30 days. FOLLOW-UP RECOMMENDATION: Ultrasound recommended. (I) Approximately 10% of breast cancers are not detected by mammography. A normal mammogram should not delay biopsy of a clinically suspicious abnormality. Electronically Signed: Dontrell Pham MD at 10:35 EDT ,
--- NOTE | 2022-11-05 09:33 | US_ITS ---
STUDY: ULTRASOUND BREAST - LEFT REASON FOR EXAM: Female, 47 years old. Left axillary discomfort, pain TECHNIQUE: Axial and longitudinal images of the LEFT breast were performed with a high resolution ultrasound transducer. # OF IMAGES: 20 COMPARISON: None. FINDINGS: LEFT Breast: Sonographic evaluation of the left axilla shows a well-defined benign-appearing lymph node with a fatty hilum. Lymph node measures 2.2 x 0.8 x 0.6 cm. Since it measures less than 1 cm in short axis dimension it is likely physiologic and no specific follow-up is needed. There is no hyperemia, architectural distortion or suspicious subcutaneous fluid. US/Breast Limited Unilateral IMPRESSION: Likely physiologic left axillary lymph node corresponding to the palpable lump. This may be reactive. No specific follow-up is needed, but short-term follow-up ultrasound could confirm resolution No suspicious sonographic findings ASSESSMENT CATEGORY: BIRADS Category 2: Benign. A letter regarding these results will be sent to the patient by the facility within 30 days. Electronically Signed: Dontrell Pham MD at 10:54 EDT ,
== END | disposition home or self-care (01) ==
PROVIDERS: PCP Internal Medicine; Referring Provider Internal Medicine; Visit Provider Internal Medicine
DX: R92.2 Inconclusive mammogram (principal); M79.622 Pain in left upper arm
CPT/HCPCS: 76642; 77061; 77065; G0279

== ENCOUNTER 2023-01-21 08:49 | Day surgery (SDC) | payer BC, SELFPAY ==
[2023-01-21] VITALS (9 sets, daily range): BP systolic 86–111; BP diastolic 55–82; PULSE 50–75; RESP 16; TEMP 36.2–36.9; O2SAT 75–100; BMI 21.9
[2023-01-21] MEDS: Lactated Ringers 1,000 ML 15 ML IV (09:28)
--- NOTE | 2023-01-21 09:42 | HP.PCM_ITS ---
[facility] - General General Date of Admission: 01/21/23 Date of Service: 01/21/23 Chief Complaint: Screening colonoscopy [facility] Honorio VEGA, is a 47 F who presents today for screening colonoscopy. She has not had a colonoscopy in the past. She denies abdominal pain. She denies any cramping. She denies any chest or short of breath. She has a past medical history of mild GERD and mild hypercholesterolemia. Overall she is in very good health. Her father did have a history of polyps. [facility] Medical History Alcohol use Cardiology follow-up encounter Difficulty swallowing GERD (gastroesophageal reflux disease) History of echocardiogram History of hiatal hernia History of stress test Hyperlipidemia, unspecified Injury of head and neck Marijuana use Non-smoker Normal Holter exam Post-menopausal Wears glasses Home Medications omeprazole 20 mg capsule,delayed release 20 mg PO DAILY GERD 05/24/18 [History Last Taken 06/01/18 07:00] rosuvastatin 5 mg tablet 5 mg PO DAILY 11/02/22 [History Last Taken Unknown] multivitamin with minerals-folic acid 200 mcg chewable tablet (Multivitamin Gummies) 100 tab PO DAILY 01/18/23 [History Last Taken Unknown] Allergy/AdvReac Type Severity Reaction Status Date / Time erythromycin base AdvReac Vomiting Verified 01/21/23 09:01 Family History (Updated 11/02/22 @ 09:26 by Dotty Flores) Father Colon polyps Surgical History History of endometrial ablation History of esophagogastroduodenoscopy (EGD) Hx of tonsillectomy Social History (Updated 11/02/22 @ 09:27 by Dotty Flores) household members: spouse current occupational status: employed Smoking Status: Never smoker ROS Review of Systems ROS Unobtainable: other Constitutional Constitutional: Denies fatigue, fever(s), poor appetite, weight gain or weight loss ENT HEENT: Denies mouth lesions Cardiovascular Cardiovascular: Denies abdominal bloating, abdominal edema or abdominal pain Respiratory/Chest Respiratory/Chest: Denies change in mental status, change in phlegm color, chest congestion or chest tightness Gastrointestinal Gastrointestinal: Denies belching, bloating, change in bowel habits, change in stool character, chewing difficulty, coffee ground emesis, constipation, cramping, diarrhea, dyspepsia, dysphagia, early satiety, excessive flatus, fecal incontinence, heartburn, hematemesis, hematochezia, hemorrhoids, loose stools, melena, nausea, odynophagia, rectal bleeding, tenesmus, vomiting or weight changes Genitourinary Genitourinary: Denies abdominal discomfort, burning urination or itching Musculoskeletal Musculoskeletal: Reports as per HPI; Denies muscle weakness or myalgias Integumentary Integumentary: Denies jaundice Neurologic Neurologic: Denies lack of coordination or weakness Psychiatric Psychiatric: Denies confusion, depression, memory loss, mood swings, paranoia or suicidal ideation Endocrine Endocrinology: Denies systems reviewed and no addt'l complaints, except as documented Hematologic/Lymphatic Hematologic/Lymphatic: Denies anemia, easy bleeding, easy bruising or lymphadenopathy Allergic/Immunologic Allergic/Immunologic: Denies systems reviewed and no addt'l complaints, except as documented Vital Signs Vital Signs Vital Signs: 01/21/23 09:20 01/21/23 09:20 Temperature 98.4 F Temperature Source Temporal Pulse Rate 75 Respiratory Rate 16 Respiratory Pattern Normal Blood Pressure 111/82 H Blood Pressure Mean 91 Blood Pressure Source Monitor Blood Pressure Position Semi-Fowlers Blood Pressure Location Left Arm Pulse Ox 75 Oxygen Delivery Method Room Air Weight Weight: 112 lb 6.972 oz Body Mass Index (BMI) 21.9 Physical Exam Const alert General Appearance: cooperative Orientation / Consciousness: oriented to person HEENT hearing grossly normal bilaterally Head and Scalp: normal to inspection Face and Sinus: face symmetric Nose: external nose normal Mouth: oral and palatal mucosa normal Eyes conjunctivae normal General Eye: normal appearance of both eyes Neck full ROM General: normal visual inspection Lymph Lymphatic: no lymphadenopathy noted Chest inspection of chest normal and palpation of chest normal Chest: symmetrical chest wall rise Resp normal respiratory effort Effort and Inspection: able to speak in complete sentences Cardio regular rate GI non-distended Percussion: normal to percussion Rectal Exam: deferred Neuro Speech: speech normal Gait (Neuro): normal gait Assessment & Plan Assessment/Plan (1) Encounter for screening for malignant neoplasm of colon: PLAN: She was explained alternatives, risk, benefits including not withstanding bleeding, infection, sepsis, perforation, need for emergent surgery . She will have an ASA of 2.
--- NOTE | 2023-01-21 10:14 | OP.COLON_ITS ---
Patient Name: Ellie Keenan Procedure Date: 01/21/2023 9:44 AM Date of : 1975 Age: 47 Procedure: Colonoscopy Indications: Screening for colorectal malignant neoplasm Providers: Aditya Stark DO Medicines: Monitored Anesthesia Care Patient Profile: This is a 47 year old female. Refer to note in patient chart for documentation of history and physical. Last Colonoscopy: none. The patient's first colonoscopy is today. Complications: No immediate complications. Procedure: Pre-Anesthesia Assessment: - Prior to the procedure, a History and Physical was performed, and patient medications and allergies were reviewed. The patient is competent. The risks and benefits of the procedure and the sedation options and risks were discussed with the patient. All questions were answered and informed consent was obtained. Patient identification and proposed procedure were verified by the physician in the pre-procedure area. Mental Status Examination: normal. Respiratory Examination: clear to auscultation. CV Examination: normal. Prophylactic Antibiotics: The patient does not require prophylactic antibiotics. Prior Anticoagulants: The patient has taken no previous anticoagulant or antiplatelet agents. ASA Grade Assessment: II - A patient with mild systemic disease. After reviewing the risks and benefits, the patient was deemed in satisfactory condition to undergo the procedure. The anesthesia plan was to use moderate sedation / analgesia (conscious sedation). Immediately prior to administration of medications, the patient was re-assessed for adequacy to receive sedatives. The heart rate, respiratory rate, oxygen saturations, blood pressure, adequacy of pulmonary ventilation, and response to care were monitored throughout the procedure. The physical status of the patient was re-assessed after the procedure. After I obtained informed consent, the scope was passed under direct vision. Throughout the procedure, the patient's blood pressure, pulse, and oxygen saturations were monitored continuously. The was introduced through the anus and advanced to the cecum, identified by appendiceal orifice and ileocecal valve. The colonoscopy was performed without difficulty. The patient tolerated the procedure well. The quality of the bowel preparation was adequate. Scope In: 9:55:59 AM Scope Withdrawal Time 0 hours 9 minutes 15 seconds Scope Out: 10:09:20 AM Total Procedure Duration Time 0 hours 13 minutes 21 seconds Findings: The perianal and digital rectal examinations were normal. The colon (entire examined portion) appeared normal. The exam was otherwise without abnormality on direct and retroflexion views. Impression: - The entire examined colon is normal. - The examination was otherwise normal on direct and retroflexion views. - No specimens collected. Recommendation: - Discharge patient to home. - Resume previous diet. - Continue present medications. - Await pathology results. - Repeat colonoscopy in 10 years for screening purposes. Procedure Code(s): --- Professional --- G0121, Colorectal cancer screening; colonoscopy on individual not meeting criteria for high risk CPT copyright 2017 [employer]. All rights reserved. The codes documented in this report are preliminary and upon toe former stitchdowns review may be revised to meet current compliance requirements. Aditya Stark DO 01/21/2023 10:14:36 AM This report has been signed electronically. Number of Addenda: 0 Note Initiated On: 01/21/2023 9:44 AM
--- NOTE | 2023-01-21 10:15 | OP.CCLET_ITS ---
01/21/2023 Yanet Mirza Re : Colonoscopy procedure for Ellie Chewr Hermes This procedure was performed on December. My impressions and recommendations are as follows: Impressions : - The entire examined colon is normal. - The examination was otherwise normal on direct and retroflexion views. - No specimens collected. Recommendations : - Discharge patient to home. - Resume previous diet. - Continue present medications. - Await pathology results. - Repeat colonoscopy in 10 years for screening purposes. My findings are described in the full procedure note, which is enclosed. If I can be of further assistance, please feel free to contact me at . Sincerely, Aditya Stark, 01/21/2023 10:14:36 AM This report has been signed electronically.
== END 2023-01-21 10:57 | disposition home or self-care (01) ==
LOC: EN 08:56 → AC 08:57
PROVIDERS: PCP Internal Medicine; Referring Provider Internal Medicine; Visit Provider Internal Medicine Gastroenterology
PROC: 0DJD8ZZ Inspection of Lower Intestinal Tract, Via Natural or Artificial Opening Endoscopic (ICD-10-PCS; CPT 45378; principal; 2023-01-21 09:55)
DX: Z12.11 Encounter for screening for malignant neoplasm of colon (principal); K21.9 Gastro-esophageal reflux disease without esophagitis; E78.00 Pure hypercholesterolemia, unspecified; Z79.899 Other long term (current) drug therapy
CPT/HCPCS: 45378; J7120; J2405

== ENCOUNTER → 2023-03-11 | Outpatient (CLI) | payer BC, SELFPAY ==
--- NOTE | 2023-03-11 15:37 | BI_ITS ---
MAMMOGRAPHY - BILATERAL SCREENING REASON FOR EXAM: Female, 48 years old. Routine annual screening examination. PERTINENT HISTORY: Non-contributory. TECHNIQUE: Digital bilateral breast lisbet (3D mammographic acquisition) in the CC and MLO projections. 2-D mediolateral oblique (MLO) and craniocaudad (CC) views of both breasts were obtained. CAD: Full Field Digital Mammography with Computer Added Detection was performed. COMPARISON: Comparison is made with prior study dated February 27, 2022 and February 24, 2021. FINDINGS: Breast Composition: The breasts are extremely dense, which lowers the sensitivity of mammography. There are no dominant masses or suspicious calcifications. No other significant abnormalities are identified. There has been no significant change since the prior study. BI/SCRN MAMM (CAD)W/LISBET BILAT IMPRESSION: Stable bilateral screening mammogram. Yearly follow-up mammogram recommended. (A) ASSESSMENT CATEGORY: BIRADS Category 1: Negative. A letter regarding these results will be sent to the patient by the facility within 30 days. Approximately 10% of breast cancers are not detected by mammography. A normal mammogram should not delay biopsy of a clinically suspicious abnormality. [id number] Electronically Signed: Wilbur King MD at 9:56 EDT ,
--- NOTE | 2023-03-11 15:38 | BD_ITS ---
STUDY: DUAL ENERGY X-RAY ABSORPTIOMETRY / DXA REASON FOR EXAM: Female, 48 years old. V76.12ScreeningBONE DENSITY REASON FOR EXAM -- due in February TECHNIQUE: Bone Mineral Density (BMD) measurements of lumbar spine and bilateral hips were obtained. COMPARISON: None. FINDINGS: Lumbar Spine (L1-L4): g/cm2 (0.932) / T-score (-1.0) / Z-score (-0.3) Findings are suggestive of normal bone density with a low fracture risk. Left Femur Total: g/cm2 (0.852) / T-score (-0.7) / Z-score (-0.3) Left Femoral Neck: g/cm2 (0.699) / T-score (-1.3) / Z-score (-0.6) Right Femur Total: g/cm2 (0.853) / T-score (-0.7) / Z-score (-0.3) Right Femoral Neck: g/cm2 (0.708) / T-score (-1.3) / Z-score (-0.5) BD/Dexa Bone Density Study IMPRESSION: The patient is considered osteopenic as outlined below according to World Yoni Organization (WHO) criteria with a low fracture risk. Reference Information: The T-score is the number of standard deviations above or below the standard which is normal for young adults at their peak bone mineral density. The World Health Organization (WHO) interprets the T-scores as follows: Above -1 Normal bone density Between -1 and -2.5 Osteopenia Equal to / or below -2.5 Osteoporosis As a practical clinical guideline, osteopenia may be graded as follows: Mild -1 through -1.5 Moderate -1.6 through -2.0 Severe -2.1 through -2.4 The Z-score is the number of standard deviations above or below age-matched controls. A Z-score of less than -1.5 would be considered abnormal. References: 1. NIH Osteoporosis and Related Bone Diseases www osteo.org 2. International Society for Clinical Densitometry www iscd.org 3. National Osteoporosis Foundation www nof.org Electronically Signed: Wilbur King MD at 12:40 EDT ,
== END | disposition home or self-care (01) ==
LOC: OPBD 15:36
PROVIDERS: PCP Internal Medicine; Referring Provider Internal Medicine; Visit Provider Internal Medicine
DX: Z12.31 Encounter for screening mammogram for malignant neoplasm of breast (principal); Z78.0 Asymptomatic menopausal state
CPT/HCPCS: 77063; 77067; 77080

== ENCOUNTER → 2024-01-24 | Outpatient (CLI) | payer BC, SELFPAY | END | disposition home or self-care (01) | LOC: PSN 07:42 | PROVIDERS: PCP Internal Medicine; Referring Provider Internal Medicine; Visit Provider Internal Medicine | DX: I49.9 Cardiac arrhythmia, unspecified (principal) | CPT/HCPCS: 93225; 93226 ==

== ENCOUNTER → 2024-03-13 | Outpatient (CLI) | payer BC, SELFPAY ==
--- NOTE | 2024-03-13 07:53 | BI_ITS ---
MAMMOGRAPHY - BILATERAL SCREENING REASON FOR EXAM: Female, 49 years old. Routine annual screening examination. PERTINENT HISTORY: Non-contributory. TECHNIQUE: Digital bilateral breast lisbet (3D mammographic acquisition) in the CC and MLO projections. 2-D mediolateral oblique (MLO) and craniocaudad (CC) views of both breasts were obtained. CAD: Full Field Digital Mammography with Computer Added Detection was performed. COMPARISON: Comparison is made with prior study March 11, 2023 and February 27, 2022. FINDINGS: Breast Composition: The breasts are extremely dense, which lowers the sensitivity of mammography. There are no dominant masses or suspicious calcifications. No other significant abnormalities are identified. There has been no significant change since the prior study. BI/SCRN MAMM (CAD)W/LISBET BILAT IMPRESSION: Stable bilateral screening mammogram. Yearly follow-up mammogram recommended. (A) ASSESSMENT CATEGORY: BIRADS Category 1: Negative. A letter regarding these results will be sent to the patient by the facility within 30 days. Approximately 10% of breast cancers are not detected by mammography. A normal mammogram should not delay biopsy of a clinically suspicious abnormality. [id number] Electronically Signed: Wilbur King MD at 8:35 EDT ,
== END | disposition home or self-care (01) ==
LOC: OPBI 07:53
PROVIDERS: PCP Internal Medicine; Referring Provider Internal Medicine; Visit Provider Internal Medicine
DX: Z12.31 Encounter for screening mammogram for malignant neoplasm of breast (principal)
CPT/HCPCS: 77063; 77067

== ENCOUNTER → 2025-03-15 | Outpatient (CLI) | payer BC, SELFPAY ==
--- NOTE | 2025-03-15 14:50 | BD_ITS ---
PROCEDURE: DEXA BONE DENSITY STUDY 03/15/2025 REASON FOR EXAM: F, age 50 y/o . Postmenopausal. TECHNIQUE: DEXA BONE DENSITY STUDY COMPARISON: Prior study dated March [id number]. FINDINGS: BMD and T-SCORES Lumbar spine: 0.872 g/cm2, T-score -1.6 Levels: L1 through L4 Change from prior: Loss of 6.4%. Left femoral neck: 0.714 g/cm2, T-score -1.2 Femoral neck comparison data not recommended for monitoring change. Left total hip: 0.831 g/cm2, T-score -0.9 Change from prior: Loss of 2.5%. Right femoral neck: 0.707 g/cm2, T-score -1.3 Femoral neck comparison data not recommended for monitoring change. Right total hip: 0.816 g/cm2, T-score -1.0 Change from prior: Loss of 4.4%. The World Health Organization has defined the following categories based on bone density: Normal bone density: T-score equal to or greater than -1.0 Osteopenia: T-score between -1.0 and -2.5 Osteoporosis: T-score equal to or less than -2.5 FRAX (or Comparable) Fracture Risk Assessment: 10 Year Probability of Fracture: Major Osteoporotic Fracture: 4.8% Hip Fracture: 0.3% (Note: FRAX is not to be reported in setting of normal range bone density, osteoporosis on DEXA, known history of osteoporosis, prior osteoporotic hip or vertebral fracture, or for any patient undergoing pharmacological treatment for bone loss.) The National Osteoporosis Foundation (NOF) recommends pharmacological treatment for patients with a FRAX 10-year risk of 3% or higher for a hip fracture, or 20% or higher for a major osteoporotic fracture, to prevent osteoporosis and reduce fracture risk. The patient does meet the pharmacological treatment recommendations for prevention of osteoporosis. BD/Dexa Bone Density Study IMPRESSION: OSTEOPENIA. Recommend follow-up as clinically warranted. Reading Location: [id number]
--- NOTE | 2025-03-15 14:50 | BI_ITS ---
EXAM: SCRN MAMM (CAD)W/LISBET BILAT DATE: 03/15/2025 CLINICAL HISTORY: F, Age 50 y/o , BILAT BRST SCREEN LISBET ADD-ON No family history. TECHNIQUE: SCRN MAMM (CAD)W/LISBET BILAT COMPARISON: Prior exam(s) dated March 13, 2024.. FINDINGS: TISSUE DENSITY: The breasts are extremely dense, which lowers the sensitivity of mammography. Bilateral Breast Mammographic Findings: No significant masses, calcifications or other abnormalities are identified. No suspicious masses, areas of developing architectural distortion, or suspicious calcifications. There has been no significant interval change. BI/SCRN MAMM (CAD)W/LISBET BILAT IMPRESSION: Stable examination. OVERALL FINAL ASSESSMENT BI-RADS 1: NEGATIVE. RECOMMENDATION: Routine annual follow-up in 1 Year A letter with findings and recommendations will be mailed to the patient. Reading Location: [id number]
== END | disposition home or self-care (01) ==
LOC: OPBD 14:48
PROVIDERS: PCP Internal Medicine; Referring Provider Internal Medicine; Visit Provider Internal Medicine
DX: Z12.31 Encounter for screening mammogram for malignant neoplasm of breast (principal); Z78.0 Asymptomatic menopausal state
CPT/HCPCS: 77063; 77067; 77080